=== PATIENT | male | born 1930 | race Caucasian/White ===

== ENCOUNTER 2016-06-28 17:36 | Inpatient (IN) | payer MEDICARE, BC, OTHER ==
[~2016-06-28] VITALS: Ht 170.2 cm; Wt 97.7 kg
[2016-06-28] MEDS ORDERED: NS 500 ML IV ONE (18:30)
[2016-06-28] MEDS ORDERED: ONDANSETRON 4MG/2ML VIAL (J2405) IV ONE (18:30)
[2016-06-28] MEDS ORDERED: DORZ2SOL5 OU (18:36)
[2016-06-28] MEDS ORDERED: LISI2.5T3 PO (18:36)
[2016-06-28] MEDS ORDERED: CICL0.7739 TOP (18:36)
[2016-06-28] MEDS ORDERED: PRAV20TA2 PO (18:36)
[2016-06-28] MEDS ORDERED: HYDR12.55 PO (18:36)
[2016-06-28] MEDS ORDERED: [UNRECOGNIZED DRUG - OTHER] (18:36)
[2016-06-28 18:46] LABS: BASO % 0.4 % (0.0-1.0); EOS # 0.1 K/mm3 (0.0-0.50); EOS % 0.8 % (0.0-3.0); LARGE UNSTAINED CELL # 0.1 K/mm3 (0.0-0.4); LARGE UNSTAINED CELL % 1.1 % (0.0-4.0); LYMPH # 1.1 K/mm3 (1.5-4.5); LYMPH % 12.4 % (24.0-44.0); MEAN CORPUSCULAR HEMOGLOBIN 30.8 pg (27.0-33.0); MEAN CORPUSCULAR HGB CONC 36.2 g/dl (32.0-36.5); MONO # 0.6 K/mm3 (0.0-0.8); MONO % 7.2 % (0.0-5.0); NEUTROPHILS # 6.6 K/mm3 (1.8-7.7); NEUTROPHILS % 78.1 % (36.0-66.0); PLATELET COUNT, AUTOMATED 174 k/mm3 (150-450); RED CELL DISTRIBUTION WIDTH 13.3 % (11.5-14.5); WHITE BLOOD COUNT 8.5 K/mm3 (4.0-10.0)
[2016-06-28 18:53] LABS: INR 0.96
[2016-06-28 19:12] LABS: BLOOD UREA NITROGEN 23 MG/DL (7-18); CARBON DIOXIDE LEVEL 27 MEQ/L (21-32); CHLORIDE LEVEL 99 MEQ/L (98-107); CREATININE FOR GFR 1.04 MG/DL (0.70-1.30); GLOMERULAR FILTRATION RATE > 60.0 (>35); GLUCOSE, FASTING 192 MG/DL (83-110); POTASSIUM SERUM 4.1 MEQ/L (3.5-5.1); SODIUM LEVEL 136 MEQ/L (136-145)
[2016-06-28 19:13] LABS: ALBUMIN 3.4 GM/DL (3.2-5.2); ALBUMIN/GLOBULIN RATIO 1.03 (1.00-1.93); ALKALINE PHOSPHATASE 178 U/L (45-117); ALT/SGPT 16 U/L (12-78); ANION GAP 10 MEQ/L (8-16); AST/SGOT 63 U/L (15-37); BILIRUBIN,DIRECT 0.3 MG/DL (0.0-0.2); BILIRUBIN,TOTAL 0.9 MG/DL (0.2-1.0); CALCIUM LEVEL 10.3 MG/DL (8.8-10.2); TOTAL PROTEIN 6.7 GM/DL (6.4-8.2)
[2016-06-28] MEDS ORDERED: ISOVUE-370 76% 100ML VIAL (Q9967) As Ordered ONE (19:19)
--- NOTE | 2016-06-28 20:20 | REPUSA ---
CT of the abdomen and pelvis with contrast Clinical statement: Pain. Small bowel obstruction. Technique: Multiple axial CT images were obtained from the base of the lungs through the floor of the pelvis utilizing 5 mm axial slices after administration of nonionic intravenous contrast. Coronal an d sagittal reconstructions were also obtained. No comparison is available. Findings: Chest: The visualized lung bases are clear. Abdomen: The liver, spleen, pancreas, kidneys, gallbladder, and adrenal glands are unremarkable. A 1 cm simple cyst is seen in the anterior inferior left kidney. A 1 cm simple cyst is seen in the left l obe of the liver. The aorta is within normal limits. There is no evidence of abdominal lymphadenopath y or ascites. Pelvis: There is a small midline anterior abdominal wall hernia. At this site, a single small bowel l oop is seen herniating, and is obstructed. The distal small bowel is relatively collapsed, with proxi mal small bowel air/fluid levels noted. Sigmoid diverticulosis is also noted. The urinary bladder is within normal limits. The other pelvic structures appear grossly intact. There is no evidence of pelv ic lymphadenopathy or ascites. Bones: There are no suspicious osseous abnormalities seen. There is mild levoscoliosis, with multilev el degenerative disc disease seen throughout the lumbar spine. Impression: 1. Moderate grade small bowel obstruction, caused by the midline anterior abdominal wall hernia. No s urrounding fluid or inflammation is identified. 2. Sigmoid diverticulosis without evidence of diverticulitis. 3. Simple cyst in the left lobe of the liver. Simple cyst in the left kidney. ER physician was notified of these findings at 8:15 PM on 06/28/2016.
[2016-06-28] MEDS ORDERED: ONDANSETRON 4MG/2ML VIAL (J2405) IV PRN (20:45)
[2016-06-28] MEDS ORDERED: ACETAMINOPHEN TAB 650MG DOSE (2X325MG) PO PRN (20:45)
[2016-06-28] MEDS ORDERED: MORPHINE 2 MG/ML 1ML SYRINGE IV PRN (20:45)
[2016-06-28] MEDS ORDERED: NORCO, ANEXSIA 5/325MG TABLET (HYDROcodone/ACETAMINOPHEN) PO PRN (20:45)
[2016-06-28] MEDS ORDERED: LISINOPRIL *2.5 MG* TAB PO ONE ×2 (21:00→22:30)
[2016-06-28] MEDS ORDERED: hydroCHLOROthiazide 12.5 MG CAPSULE PO ONE ×2 (21:00→22:30)
[2016-06-28] MEDS ORDERED: ASPI1CAP PO (21:10)
[2016-06-28] MEDS ORDERED: DULC5TAB PO (21:10)
[2016-06-28] MEDS ORDERED: BIMA01SOL OU (21:12)
[2016-06-28 22:30] VITALS: BP 140/81
[2016-06-28] MEDS: LR 1,000 ML IV SCH (23:02)
[2016-06-28 23:28] VITALS: BP 134/64
[2016-06-28] MEDS: SENOKOT S TAB PO SCH (23:29)
[2016-06-28] MEDS: COSOPT OCUMETER PLUS 10ML (DORZOLAMIDE/TIMOLOL) OU SCH (23:29)
[2016-06-28] MEDS: PRAVASTATIN 20 MG TAB PO SCH (23:29)
[2016-06-29] MEDS: LR 1,000 ML IV SCH ×2 (05:58→16:07)
[2016-06-29 06:00] VITALS: BP 166/69
[2016-06-29 06:56] LABS: ANION GAP 5 MEQ/L (8-16); BLOOD UREA NITROGEN 22 MG/DL (7-18); CALCIUM LEVEL 9.9 MG/DL (8.8-10.2); CARBON DIOXIDE LEVEL 33 MEQ/L (21-32); CHLORIDE LEVEL 101 MEQ/L (98-107); GLOMERULAR FILTRATION RATE > 60.0 (>35); GLUCOSE, FASTING 162 MG/DL (83-110); SODIUM LEVEL 139 MEQ/L (136-145)
[2016-06-29 07:11] LABS: BASO % 0.3 % (0.0-1.0); LARGE UNSTAINED CELL # 0.1 K/mm3 (0.0-0.4); LYMPH % 17.8 % (24.0-44.0); MEAN CORPUSCULAR HEMOGLOBIN 30.2 pg (27.0-33.0); MEAN CORPUSCULAR HGB CONC 35.1 g/dl (32.0-36.5); MEAN CORPUSCULAR VOLUME 86.1 fl (80.0-96.0); NEUTROPHILS % 68.4 % (36.0-66.0); PLATELET COUNT, AUTOMATED 135 k/mm3 (150-450); RED CELL DISTRIBUTION WIDTH 13.3 % (11.5-14.5); WHITE BLOOD COUNT 6.9 K/mm3 (4.0-10.0)
[2016-06-29 07:12] LABS: EOS % 0.7 % (0.0-3.0); LARGE UNSTAINED CELL % 1.6 % (0.0-4.0); LYMPH # 1.2 K/mm3 (1.5-4.5); MONO # 0.8 K/mm3 (0.0-0.8); MONO % 11.2 % (0.0-5.0); NEUTROPHILS # 4.6 K/mm3 (1.8-7.7)
[2016-06-29] MEDS: PANTOPRAZOLE 40MG INJ (PROTONIX) (C9113) IV SCH (10:18)
[2016-06-29] MEDS: COSOPT OCUMETER PLUS 10ML (DORZOLAMIDE/TIMOLOL) OU SCH ×2 (10:18→20:21)
[2016-06-29] MEDS: ENOXAPARIN 30 MG/0.3 ML SYR (J1650) SC SCH (10:18)
[2016-06-29] MEDS: NORCO, ANEXSIA 5/325MG TABLET (HYDROcodone/ACETAMINOPHEN) PO PRN (10:19)
[2016-06-29] MEDS: SENOKOT S TAB PO SCH ×2 (10:26→20:22)
--- NOTE | 2016-06-29 10:38 | REP ---
Clinical: Small bowel obstruction. Technique: Upright view of the abdomen with supine view of the abdomen and pelvis. Comparison: CT dated 06/28/2016. Findings: The bowel gas pattern is essentially nonspecific and the previously noted small bowel obstruction by CT is not identifiable by current examination. Skeletal structures demonstrate stable degenerative changes. Impression: No evidence for bowel obstruction based on current radiographs. Signed by Triston Delarosa MD 06/29/2016 10:29 A
[2016-06-29 14:00] VITALS: BP 146/70
[2016-06-29] MEDS: PRAVASTATIN 20 MG TAB PO SCH (20:21)
[2016-06-29 22:00] VITALS: BP 103/61
[2016-06-30] MEDS: LR 1,000 ML IV SCH (02:17)
[2016-06-30 06:00] VITALS: BP 112/59
[2016-06-30] MEDS: SENOKOT S TAB PO SCH (09:00)
[2016-06-30] MEDS: ENOXAPARIN 30 MG/0.3 ML SYR (J1650) SC SCH (11:55)
[2016-06-30] MEDS: COSOPT OCUMETER PLUS 10ML (DORZOLAMIDE/TIMOLOL) OU SCH (11:56)
[2016-06-30] MEDS: PANTOPRAZOLE 40MG INJ (PROTONIX) (C9113) IV SCH (11:56)
[2016-06-30] MEDS: NORCO, ANEXSIA 5/325MG TABLET (HYDROcodone/ACETAMINOPHEN) PO PRN (11:56)
== END 2016-06-30 15:05 | disposition home or self-care (01) | DRG 395 ==
LOC: M ED 18:56 → M ED INP 20:42 → M MS5PR 22:20
PROVIDERS: ADMIT Surgery; ATTEND Surgery
DX: K43.0 Incisional hernia with obstruction, without gangrene (principal); E66.9 Obesity, unspecified; Z68.33 Body mass index [BMI] 33.0-33.9, adult; Z86.010 Personal history of colon polyps; Z79.899 Other long term (current) drug therapy; Z90.49 Acquired absence of other specified parts of digestive tract

== ENCOUNTER 2016-08-03 02:09 | Inpatient (IN) | payer MEDICARE, BC, OTHER ==
[~2016-08-03] VITALS: Ht 170.2 cm; Wt 95.0 kg
[~2016-08-03 02:09] MED LIST: ASPI1CAP PO; BIMA01SOL OU; CICL0.7739 TOP; DORZ2SOL5 OU; DULC5TAB PO; HYDR12.55 PO; LISI2.5T3 PO; PRAV20TA2 PO; [UNRECOGNIZED DRUG - OTHER]
[2016-08-03] MEDS ORDERED: ONDANSETRON 4MG/2ML VIAL (J2405) IV ONE (03:15)
[2016-08-03] MEDS ORDERED: NS 500 ML IV ONE (03:15)
[2016-08-03] MEDS: MORPHINE 4 MG/ML 1ML SYRINGE IV PRN ×3 (03:31→04:06)
[2016-08-03 03:34] LABS: BASO % 0.5 % (0.0-1.0); EOS # 0.1 K/mm3 (0.0-0.50); EOS % 1.1 % (0.0-3.0); LARGE UNSTAINED CELL # 0.1 K/mm3 (0.0-0.4); LARGE UNSTAINED CELL % 2.1 % (0.0-4.0); LYMPH # 1.2 K/mm3 (1.5-4.5); LYMPH % 19.6 % (24.0-44.0); MEAN CORPUSCULAR HEMOGLOBIN 29.9 pg (27.0-33.0); MEAN CORPUSCULAR HGB CONC 34.4 g/dl (32.0-36.5); MEAN CORPUSCULAR VOLUME 86.9 fl (80.0-96.0); MONO # 0.5 K/mm3 (0.0-0.8); NEUTROPHILS % 68.7 % (36.0-66.0); PLATELET COUNT, AUTOMATED 133 k/mm3 (150-450); WHITE BLOOD COUNT 5.9 K/mm3 (4.0-10.0)
[2016-08-03 03:38] LABS: INR 0.98
[2016-08-03 04:01] LABS: ALBUMIN 3.1 GM/DL (3.2-5.2); ALBUMIN/GLOBULIN RATIO 0.82 (1.00-1.93); ALKALINE PHOSPHATASE 613 U/L (45-117); ALT/SGPT 21 U/L (12-78); ANION GAP 12 MEQ/L (8-16); AST/SGOT 167 U/L (15-37); BILIRUBIN,DIRECT 0.2 MG/DL (0.0-0.2); BILIRUBIN,TOTAL 0.9 MG/DL (0.2-1.0); BLOOD UREA NITROGEN 31 MG/DL (7-18); CALCIUM LEVEL 9.4 MG/DL (8.8-10.2); CARBON DIOXIDE LEVEL 24 MEQ/L (21-32); CHLORIDE LEVEL 101 MEQ/L (98-107); CREATININE FOR GFR 0.95 MG/DL (0.70-1.30); GLOMERULAR FILTRATION RATE > 60.0 (>35); GLUCOSE, FASTING 188 MG/DL (83-110); POTASSIUM SERUM 3.5 MEQ/L (3.5-5.1); SODIUM LEVEL 137 MEQ/L (136-145); TOTAL PROTEIN 6.9 GM/DL (6.4-8.2)
[2016-08-03] MEDS ORDERED: ISOVUE-370 76% 100ML VIAL (Q9967) As Ordered ONE (04:28)
--- NOTE | 2016-08-03 05:10 | REPUSA ---
CLINICAL HISTORY: Abdominal pain. TECHNIQUE: Multiple axial, sagittal and coronal CT images were obtained through the abdomen and pelvi s after administration of oral and intravenous contrast material. Images were obtained before and aft er IV contrast administration. COMMENTS: Comparison is made to the prior exam on 06/28/2016. Surgical changes from prior partial colectomy. 1.5 cm well-defined hypodense hepatic lesion suggestive of a cyst. The liver is of decreased attenuation without mass or defect. There is no intra or extrahepatic bilia ry ductal dilatation. The spleen is normal. The gallbladder is within normal limits. The pancreas is of normal contour and attenuation characteristics. There is no evidence of adrenal mass. Mild left renal atrophy. Both kidneys demonstrate prompt and equal nephrograms. The kidneys are normal in size, shape and conf iguration. There is no evidence of renal or ureteral mass. No renal or ureteral calculi are identifie d. There is no hydroureter or hydronephrosis. No evidence for appendicitis. No evidence for small or large bowel obstruction. There is no evidence of abdominal ascites or lymphadenopathy. There is no evidence of intrinsic or extrinsic bladder mass. There is no pelvic ascites or lymphadeno francesca. Images of the lung bases show no evidence of pleural or parenchymal mass. There are no pleural effusi ons. The bony structures are free of lytic or blastic lesions. Multilevel degenerative changes are seen in volving the thoracolumbar spine. Scattered calcifications are seen involving the aorta and major bran ches compatible with atherosclerosis. Bilateral fat containing inguinal hernias without incarceration. Surgical changes of anterior abdominal wall. IMPRESSION: Changes from prior partial colectomy. No bowel obstruction. Unchanged anterior abdominal wall hernia containing nonincarcerated bowel. Thank you for your kind referral of this patient.
[2016-08-03] MEDS: NS 1,000 ML IV SCH ×3 (06:46→20:26)
[2016-08-03] MEDS ORDERED: NS 1,000 ML IV SCH (08:43)
[2016-08-03] MEDS ORDERED: BISACODYL 5 MG TAB PO PRN (08:45)
[2016-08-03] MEDS ORDERED: ACETAMINOPHEN TAB 650MG DOSE (2X325MG) PO PRN (08:45)
[2016-08-03] MEDS: MORPHINE 2 MG/ML 1ML SYRINGE IV PRN ×4 (09:28→20:27)
[2016-08-03 09:29] LABS: ERYTHROCYTE SEDIMENTATION RATE 67 mm/hr (0-30)
[2016-08-03 09:30] LABS: MAGNESIUM LEVEL 1.6 MG/DL (1.8-2.4); PERCENT SATURATION 25.8 % (19.7-37.4); TOTAL IRON BINDING CAPACITY 279 UG/DL (250-450)
[2016-08-03 10:25] VITALS: BP 134/66
[2016-08-03] MEDS: LISINOPRIL *2.5 MG* TAB PO SCH (10:44)
[2016-08-03] MEDS: ENOXAPARIN 40 MG/0.4 ML SYRINGE (J1650) SC SCH (10:44)
[2016-08-03] MEDS: hydroCHLOROthiazide 12.5 MG CAPSULE PO SCH (10:44)
[2016-08-03] MEDS: DIPYRIDAMOLE/ASA (AGGRENOX) 200MG/25MG CAPCR PO SCH ×2 (12:13→20:26)
[2016-08-03] MEDS: COSOPT OCUMETER PLUS 10ML (DORZOLAMIDE/TIMOLOL) OU SCH ×2 (12:16→20:26)
--- NOTE | 2016-08-03 13:56 | ECGEPIP ---
Stationary ECG Study 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
--- NOTE | 2016-08-03 14:50 | HPE ---
DATE OF ADMISSION: 08/03/2016 CHIEF COMPLAINT: Sore muscles and fatigue. HOSPITAL COURSE: For about the past month patient has been complaining of muscle aches, general weakness, decreased interest in eating, and admits to decreased oral intake. He had recent problems with mechanical bowel obstruction and was found to have small hernias and is scheduled for hernia repair in the future. At this point the gastrointestinal (GI) symptoms have resolved, and he is awaiting preoperative evaluation with his doctor to set up surgery to correct the inguinal hernias. Apparently they are entrapping mental fat but not bowel loops this time, according to CT done in the emergency room (ER). Patient was taking a variety of medications, including pravastatin 20 mg daily. He affirms that the dosage of the pravastatin has not recently changed, and he has been on this agent since October 2013 PAST MEDICAL HISTORY: Positive for: 1. Hypertensive heart disease without heart failure. 2. Does have a history of diabetes mellitus but does not appear to be taking any medications to treat the diabetes. 3. History of stroke, which left him with no residual that he can define. He does seem mildly dysarthric today, but this may be a residual effect of narcotic pain medicine given in the emergency department (ED) REVIEW OF SYSTEMS: Denies recent changes and neurologic function. Muscle pains as noted. Has not noticed any change in urinary color. Denies recent injuries. No cough, chest pain, fevers, or chills. No rashes other than chronic intertriginous rash, treated with ciclopirox with good effects according to the patient. No difficulty with urination. No burning or stinging. No flank pain. At this time no nausea, abdominal distension, or crampy abdominal pain. No significant joint redness, swelling, and again no recent injury. 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 Oxygen will be titrated to maintain saturations. He is alert, pleasant, cooperative. Smiles readily. Acknowledges examiner. He is accompanied by daughters in the room with him at this time. He moves all extremities well. He is not distractible and is able to focus. HEENT: Shows no evidence of trauma. Full extraocular movements. Oropharynx unremarkable with normal midline palate elevation. Normal tongue movement to demonstrated. He has no carotid bruits. There is no palpable thyroid enlargement. No tracheal shift. No adenopathy detected. LUNGS: Clear to auscultation with no wheezing, rales, or rhonchi. Equal expansion. HEART: Regular rhythm. No murmur identified. No shift of point of maximal impulse (PMI) and no gallop rhythm heard. ABDOMEN: Soft. No guarding. No mass or tenderness. There is no rebound tenderness. EXTREMITIES: Mildly achy throughout. No hot, red, swollen joints. No petechial rashes. No splinter hemorrhages. NEUROLOGIC: Mildly dysarthric but moves all extremities equally and well with normal reflex demonstrated CT of his abdomen does show bilateral fat-containing inguinal hernias without incarceration. EKG is pending. LABORATORY: Includes normal sodium 137, potassium at 3.5, CO2 of 24, anion gap 12, BUN is slightly elevated 31, creatinine 0.95, suggesting volume contraction, glucose 188. AST 167, alkaline phosphatase 613, and albumin slightly low at 3.1. Lipase 78. He is anemic with hemoglobin of 10.8, showing the normochromic and normocytic cells. Platelet count is slightly low at 133,000. He does not have prominent eosinophilia. PT is normal at 13.1, and his INR is 0.98. ASSESSMENT: An 85-year-old stroke survivor presents with myalgia, on statins now for not quite 3 years. No recent change in medications that should provoke metabolic disturbance with the statin. No recent infectious illness. No current infectious illness. No evidence of an inflammatory state with respective to fevers, chills, rashes, or hot joints. No recent illicit drug use identified. Suspect statin-induced rhabdomyolysis. At this point kidney function is well preserved, and the extent of the rhabdomyolysis is mild considering a total CPK of 1799 and alkaline phosphatase of 613. PLAN: Continue adequate hydration to ensure adequate renal function. He is mildly dehydrated now, which will compound risk with respect to developing renal dysfunction. Will continue with 150 per hour hydration at this time of normal saline. He has received a 500 mL bolus and will continue 150 mL per hour ongoing, which should be adequate. We will continue for now his diuretic and lisinopril. We will provide morphine 2 mg as needed for muscle pain and Lovenox 40 mg subcutaneous for deep vein thrombosis (DVT) prophylaxis. PT will be requested, and his pravastatin will be stopped for now. Will continue his dipyridamole/aspirin combination for stroke prophylaxis. Laboratory studies for connective tissue disorders will be done. EKG is ordered. Activity will be as tolerated, and again request PT consult. Anticipate at least 2-midnight stay before patient's pain and syndrome is sufficiently resolved and rhabdomyolysis sufficiently resolved to confidently discharge without concern for rebound. The patient based on his home request and documented previous statements, request DO NOT RESUSCITATE order, which will be honored. He will be admitted to regular medical bed.
[2016-08-03] MEDS: LATANOPROST 0.005% OPHTH SOLN 2.5 ML OU SCH (20:26)
[2016-08-03 22:00] VITALS: BP 138/83
[2016-08-04] MEDS: NS 1,000 ML IV SCH ×3 (03:09→17:28)
[2016-08-04] MEDS: MORPHINE 2 MG/ML 1ML SYRINGE IV PRN ×2 (03:10→20:39)
[2016-08-04 05:48] LABS: BASO % 0.5 % (0.0-1.0); EOS # 0.1 K/mm3 (0.0-0.50); EOS % 1.5 % (0.0-3.0); LARGE UNSTAINED CELL # 0.1 K/mm3 (0.0-0.4); LARGE UNSTAINED CELL % 2.5 % (0.0-4.0); LYMPH # 0.8 K/mm3 (1.5-4.5); MEAN CORPUSCULAR HEMOGLOBIN 30.3 pg (27.0-33.0); MEAN CORPUSCULAR HGB CONC 34.6 g/dl (32.0-36.5); MEAN CORPUSCULAR VOLUME 87.7 fl (80.0-96.0); MONO # 0.4 K/mm3 (0.0-0.8); MONO % 8.7 % (0.0-5.0); NEUTROPHILS % 67.7 % (36.0-66.0); RED CELL DISTRIBUTION WIDTH 15.1 % (11.5-14.5); WHITE BLOOD COUNT 4.4 K/mm3 (4.0-10.0)
[2016-08-04 06:00] VITALS: BP 130/69
[2016-08-04 06:14] LABS: ALBUMIN 2.5 GM/DL (3.2-5.2); ALBUMIN/GLOBULIN RATIO 0.74 (1.00-1.93); ALKALINE PHOSPHATASE 768 U/L (45-117); ALT/SGPT 42 U/L (12-78); ANION GAP 9 MEQ/L (8-16); AST/SGOT 585 U/L (15-37); BILIRUBIN,TOTAL 0.6 MG/DL (0.2-1.0); BLOOD UREA NITROGEN 17 MG/DL (7-18); CALCIUM LEVEL 8.5 MG/DL (8.8-10.2); CARBON DIOXIDE LEVEL 25 MEQ/L (21-32); CHLORIDE LEVEL 105 MEQ/L (98-107); CREATININE FOR GFR 0.85 MG/DL (0.70-1.30); GLOMERULAR FILTRATION RATE > 60.0 (>35); GLUCOSE, FASTING 149 MG/DL (83-110); POTASSIUM SERUM 3.8 MEQ/L (3.5-5.1); SODIUM LEVEL 139 MEQ/L (136-145); TOTAL PROTEIN 5.9 GM/DL (6.4-8.2)
[2016-08-04 06:26] LABS: PLATELET COUNT, AUTOMATED 99 k/mm3 (150-450)
[2016-08-04] MEDS ORDERED: MAG SULF 1GM/100ML (MAG RUN) 1 GM in APPROPRIATE DILUENT 1 EA IV ONE (09:00)
[2016-08-04] MEDS: ENOXAPARIN 40 MG/0.4 ML SYRINGE (J1650) SC SCH (09:00)
[2016-08-04] MEDS: hydroCHLOROthiazide 12.5 MG CAPSULE PO SCH (10:42)
[2016-08-04] MEDS: COSOPT OCUMETER PLUS 10ML (DORZOLAMIDE/TIMOLOL) OU SCH ×2 (10:42→20:19)
[2016-08-04] MEDS: ENOXAPARIN 30 MG/0.3 ML SYR (J1650) SC SCH (10:42)
[2016-08-04] MEDS: DIPYRIDAMOLE/ASA (AGGRENOX) 200MG/25MG CAPCR PO SCH ×2 (10:42→20:19)
[2016-08-04] MEDS: LISINOPRIL *2.5 MG* TAB PO SCH (10:44)
--- NOTE | 2016-08-04 11:19 | IPNPDOC ---
Subjective Date Seen The patient was seen on 08/04/16. Subjective Chief Complaint/HPI The patient is a 85-year-old male admitted with a reason for visit of Rhabdomyolysis Due To Statin Therapy. General: Reports: Fatigue, Denies: Chills, Malaise ENT: Denies: Head Aches, Dysphagia Pulmonary: Denies: Dyspnea, Cough Cardiovascular: Denies: Chest Pain, Palpitations, Orthopnea Gastrointestinal: Denies: Vomiting, Abdominal Pain Genitourinary: Denies: Dysuria, Frequency Neurological: Denies: Numbness, Change in speech, Confusion Objective Physical Examination General Exam: Positive: Alert, Cooperative, No Acute Distress Eye Exam: Positive: PERRLA ENT Exam: Positive: Atraumatic Neck Exam: Positive: Supple, Negative: thyromegaly Chest Exam: Positive: Clear to auscultation, Normal air movement, Negative: Rales, Rhonchi Heart Exam: Positive: Rate Normal, Regular Rhythm, Negative: Tachycardic Abdomen Exam: Positive: Normal bowel sounds, Soft, Negative: Tenderness Skin Exam: Positive: Nl turgor and temperature, Negative: Rash Neuro Exam: Positive: Normal Tone Psych Exam: Positive: Mental status NL Assessment /Plan Problems (1) Rhabdomyolysis due to statin therapy Status: Acute Response to Treatment: Improving (Muscle pain symptoms have improved although his CK is higher today. Bun improved and Creatinine remains normal. Will reduce IV fluid rate today.) Problem Text: CK elevated but feeling better. Consider steroids if continuing to rise. Expect if due to statin that we will see improvement in CK tomorrow. (2) Inguinal hernia bilateral, non-recurrent Status: Chronic Response to Treatment: Stable Problem Specific Plan: Monitor Clinically (3) Thrombocytopenia Status: Acute Response to Treatment: Worse Problem Text: Unknown cause. also anemia is new. possibly related to rhabdo but still believe statin is culprit. will reduce lovenox dose, monitor. consider heme consult Plan/VTE VTE Prophylaxis Ordered?: Yes (reduced Lovenox dose due to low platelets) Plan IVF: Decrease Activity: Continue Current Therapy: PT Anticipated Discharge: Home VS, I&O, 24H, Fishbone Vital Signs/I&O Vital Signs Date Time Temp Pulse Resp B/P (MAP) Pulse Ox O2 Delivery O2 Flow Rate FiO2 08/04/16 10:44 122/68 08/04/16 06:00 98.9 83 19 93 Room Air I&O- Last 24 Hours up to 6 AM 08/04/16 06:00 Intake Total 3375 ml Output Total 1025 ml Balance 2350 ml Laboratory Data 24H LABS Laboratory Tests 2 08/03/16 16:21: Bedside Glucose (Misc Panel) 190H 08/04/16 05:30: White Blood Count 4.4, Red Blood Count 3.16L, Hemoglobin 9.6L, Hematocrit 27.7L , Mean Corpuscular Volume 87.7, Mean Corpuscular Hemoglobin 30.3, Mean Corpuscular Hemoglobin Concent 34.6, Red Cell Distribution Width 15.1H, Platelet Count 99L, Neutrophils (%) (Auto) 67.7H, Lymphocytes (%) (Auto) 19.0L, Monocytes (%) (Auto) 8.7H, Eosinophils (%) (Auto) 1.5, Basophils (%) (Auto) 0.5 , Neutrophils # (Auto) 3.0, Lymphocytes # (Auto) 0.8L, Monocytes # (Auto) 0.4, Eosinophils # (Auto) 0.1, Basophils # (Auto) 0.0, Large Unclassified Cells % 2.5 , Large Unclassified Cells # 0.1, Anion Gap 9, Glomerular Filtration Rate > 60.0 , Estimated Mean Plasma Glucose 203H, Hemoglobin A1c 8.7H, Blood Urea Nitrogen 17, Creatinine 0.85, Sodium Level 139, Potassium Level 3.8, Chloride Level 105, Carbon Dioxide Level 25, Calcium Level 8.5L, Aspartate Amino Transf (AST/SGOT) 585H, Alanine Aminotransferase (ALT/SGPT) 42, Total Creatine Kinase 3249#H, Alkaline Phosphatase 768H, Total Bilirubin 0.6, Total Protein 5.9L, Albumin 2.5L , Albumin/Globulin Ratio 0.74L CBC/BMP Laboratory Tests 08/04/16 05:30 Red Blood Count 3.16 L, Mean Corpuscular Volume 87.7, Mean Corpuscular Hemoglobin 30.3, Mean Corpuscular Hemoglobin Concent 34.6, Red Cell Distribution Width 15.1 H, Neutrophils (%) (Auto) 67.7 H, Lymphocytes (%) (Auto ) 19.0 L, Monocytes (%) (Auto) 8.7 H, Eosinophils (%) (Auto) 1.5, Basophils (%) (Auto) 0.5, Neutrophils # (Auto) 3.0, Lymphocytes # (Auto) 0.8 L, Monocytes # ( Auto) 0.4, Eosinophils # (Auto) 0.1, Basophils # (Auto) 0.0, Calcium Level 8.5 L , Aspartate Amino Transf (AST/SGOT) 585 H, Alanine Aminotransferase (ALT/SGPT) 42, Total Creatine Kinase 3249 #H, Alkaline Phosphatase 768 H, Total Bilirubin 0.6, Total Protein 5.9 L, Albumin 2.5 L Manish Funes MD August 04, 2016 11:19
[2016-08-04 14:00] VITALS: BP 144/70
[2016-08-04] MEDS: LATANOPROST 0.005% OPHTH SOLN 2.5 ML OU SCH (20:19)
[2016-08-04 22:00] VITALS: BP 154/76
[2016-08-05] MEDS: MORPHINE 2 MG/ML 1ML SYRINGE IV PRN ×3 (00:25→18:12)
[2016-08-05] MEDS: NS 1,000 ML IV SCH ×2 (03:15→15:00)
[2016-08-05 05:34] VITALS: BP 151/70
[2016-08-05 05:54] LABS: BASO % 0.2 % (0.0-1.0); EOS # 0.1 K/mm3 (0.0-0.50); LARGE UNSTAINED CELL # 0.1 K/mm3 (0.0-0.4); LYMPH # 0.9 K/mm3 (1.5-4.5); LYMPH % 18.7 % (24.0-44.0); MEAN CORPUSCULAR HEMOGLOBIN 29.9 pg (27.0-33.0); MEAN CORPUSCULAR HGB CONC 35.2 g/dl (32.0-36.5); MEAN CORPUSCULAR VOLUME 84.8 fl (80.0-96.0); MONO # 0.3 K/mm3 (0.0-0.8); MONO % 7.3 % (0.0-5.0); NEUTROPHILS # 3.2 K/mm3 (1.8-7.7); NEUTROPHILS % 69.7 % (36.0-66.0); PLATELET COUNT, AUTOMATED 102 k/mm3 (150-450); RED CELL DISTRIBUTION WIDTH 15.2 % (11.5-14.5); WHITE BLOOD COUNT 4.5 K/mm3 (4.0-10.0)
[2016-08-05 06:25] LABS: ALBUMIN 2.4 GM/DL (3.2-5.2); ALBUMIN/GLOBULIN RATIO 0.71 (1.00-1.93); ALKALINE PHOSPHATASE 661 U/L (45-117); ALT/SGPT 19 U/L (12-78); ANION GAP 8 MEQ/L (8-16); AST/SGOT 135 U/L (15-37); BILIRUBIN,TOTAL 0.7 MG/DL (0.2-1.0); BLOOD UREA NITROGEN 12 MG/DL (7-18); CARBON DIOXIDE LEVEL 26 MEQ/L (21-32); CHLORIDE LEVEL 104 MEQ/L (98-107); CREATININE FOR GFR 0.71 MG/DL (0.70-1.30); GLOMERULAR FILTRATION RATE > 60.0 (>35); GLUCOSE, FASTING 154 MG/DL (83-110); MAGNESIUM LEVEL 1.6 MG/DL (1.8-2.4); POTASSIUM SERUM 3.8 MEQ/L (3.5-5.1); SODIUM LEVEL 138 MEQ/L (136-145); TOTAL PROTEIN 5.8 GM/DL (6.4-8.2)
[2016-08-05 07:57] VITALS: BP 140/77
[2016-08-05] MEDS: ENOXAPARIN 30 MG/0.3 ML SYR (J1650) SC SCH (08:01)
[2016-08-05] MEDS: hydroCHLOROthiazide 12.5 MG CAPSULE PO SCH (08:01)
[2016-08-05] MEDS: DIPYRIDAMOLE/ASA (AGGRENOX) 200MG/25MG CAPCR PO SCH ×2 (08:01→20:39)
[2016-08-05] MEDS: COSOPT OCUMETER PLUS 10ML (DORZOLAMIDE/TIMOLOL) OU SCH ×2 (08:02→20:40)
[2016-08-05] MEDS: LISINOPRIL *2.5 MG* TAB PO SCH (08:02)
[2016-08-05] MEDS ORDERED: ENOXAPARIN 30 MG/0.3 ML SYR (J1650) SC SCH (09:00)
[2016-08-05 09:16] LABS: GAMMA GLUTAMYLTRANSPEPTIDASE 19 U/L (15-85)
[2016-08-05 10:46] LABS: FOLATE 3.9 NG/ML (>5.4); VITAMIN B12 LEVEL 1037 PG/ML (247-911)
[2016-08-05] MEDS ORDERED: MAG SULF 1GM/100ML (MAG RUN) 1 GM in APPROPRIATE DILUENT 1 EA IV ONE (11:00)
--- NOTE | 2016-08-05 11:06 | IPNPDOC ---
Subjective Date Seen The patient was seen on 08/05/16. Subjective Chief Complaint/HPI The patient is a 85-year-old male admitted with a reason for visit of Rhabdomyolysis Due To Statin Therapy. Events since last encounter Pt notes still with some myalgias but overall a little improved. Denies CP, SOB , Abd pain. Constitutional: Denies: Chills, Fever Pulmonary: Denies: Dyspnea Cardiovascular: Denies: Chest Pain Gastrointestinal: Denies: Nausea, Vomiting, Abdominal Pain Objective Physical Examination General Exam: Positive: Alert, Cooperative, No Acute Distress Eye Exam: Positive: PERRLA ENT Exam: Positive: Atraumatic Neck Exam: Positive: Supple, Negative: thyromegaly Chest Exam: Positive: Clear to auscultation, Normal air movement, Negative: Rales, Rhonchi Heart Exam: Positive: Rate Normal, Regular Rhythm, Negative: Tachycardic Abdomen Exam: Positive: Normal bowel sounds, Soft, Negative: Tenderness Skin Exam: Positive: Nl turgor and temperature, Negative: Rash Neuro Exam: Positive: Normal Tone Psych Exam: Positive: Mental status NL Assessment /Plan Problems (1) Pain from bone metastases Status: Acute Response to Treatment: Uncontrolled Problem Text: 08/05 + dexa 2 BID (defer NSAID given HTN, Aggrenox use), continue MSIR prn, + Senokot-S given recent SBO, t/c palliative XRT P MRI (2) Elevated CPK Status: Acute Response to Treatment: Stable Problem Text: 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 (last in [place] 11/2007 1.0) 08/05/16 ALP 661 (01/2016 58)-favor 2 bone mets elva given AST elevation also(GGTP and liver US P) 08/05/16 WBBS P 08/03/16 CT AP s/c NAD s/p TURP [address] Esposito-op note and pathology not in [place] (4) Normocytic anemia Status: Acute Response to Treatment: Worse Problem Text: favor 2 BM involvement of prostate cancer/ACD 08/05/16 9.4, MCV 85 05/2016 hgb 14.7 07/2016 B12 1037 07/2016 folate 3.9- + FA 1 mg QD 07/2016 % sat 26 (5) Hypomagnesemia Status: Acute Problem Specific Plan: Repeat Labs Problem Text: Give mag run. (6) Inguinal hernia bilateral, non-recurrent Status: Chronic Response to Treatment: Stable Problem Specific Plan: Monitor Clinically Problem Text: favor to postpone given asx and more pressing issues-obviously + bowel regimen to reduce recurrent SBO risk (7) Thrombocytopenia Status: Acute Response to Treatment: Worse Problem Text: Unknown cause. also anemia is new. possibly related to rhabdo but still believe statin is culprit. will reduce lovenox dose, monitor. consider heme consult (8) T2DM (type 2 diabetes mellitus) Status: Chronic Response to Treatment: Uncontrolled Problem Text: 08/05 probably + basal insulin pending BS on dexa 08/04 A1C 8.7-c FBSs mid [id number] until now Plan/VTE VTE Prophylaxis Ordered?: Yes (reduced Lovenox dose due to low platelets) Plan IVF: Decrease Activity: Continue Current Therapy: PT Anticipated Discharge: Home VS, I&O, 24H, [facility] Vital Signs/I&O Vital Signs Date Time Temp Pulse Resp B/P (MAP) Pulse Ox O2 Delivery O2 Flow Rate FiO2 08/05/16 09:15 Room Air 08/05/16 08:02 140/77 08/05/16 07:57 98.2 77 17 96 I&O- Last 24 Hours up to 6 AM 08/05/16 06:00 Intake Total 3992 ml Output Total 2800 ml Balance 1192 ml Laboratory Data 24H LABS Laboratory Tests 2 08/04/16 16:56: Bedside Glucose (Misc Panel) 164H 08/05/16 05:35: 08/05/16 05:37: White Blood Count 4.5, Red Blood Count 3.14L, Hemoglobin 9.4L, Hematocrit 26.6L , Mean Corpuscular Volume 84.8, Mean Corpuscular Hemoglobin 29.9, Mean Corpuscular Hemoglobin Concent 35.2, Red Cell Distribution Width 15.2H, Platelet Count 102L, Neutrophils (%) (Auto) 69.7H, Lymphocytes (%) (Auto) 18.7L , Monocytes (%) (Auto) 7.3H, Eosinophils (%) (Auto) 2.0, Basophils (%) (Auto) 0.2, Neutrophils # (Auto) 3.2, Lymphocytes # (Auto) 0.9L, Monocytes # (Auto) 0.3 , Eosinophils # (Auto) 0.1, Basophils # (Auto) 0.0, Large Unclassified Cells % 2.0, Large Unclassified Cells # 0.1, Anion Gap 8, Glomerular Filtration Rate > 60.0, Blood Urea Nitrogen 12, Creatinine 0.71, Sodium Level 138, Potassium Level 3.8, Chloride Level 104, Carbon Dioxide Level 26, Calcium Level 9.0, Aspartate Amino Transf (AST/SGOT) 135H, Alanine Aminotransferase (ALT/SGPT) 19, Gamma Glutamyl Transpeptidase 19, Total Creatine Kinase 2483H, Alkaline Phosphatase 661H, Total Bilirubin 0.7, Total Protein 5.8L, Albumin 2.4L, Magnesium Level 1.6L, C-Reactive Protein, Quantitative 16.40H, Albumin/Globulin Ratio 0.71L, Prostate Specific Antigen 48.10H, Vitamin B12 Level 1037H, Folate 3.9L CBC/BMP Laboratory Tests 08/05/16 05:37 Red Blood Count 3.14 L, Mean Corpuscular Volume 84.8, Mean Corpuscular Hemoglobin 29.9, Mean Corpuscular Hemoglobin Concent 35.2, Red Cell Distribution Width 15.2 H, Neutrophils (%) (Auto) 69.7 H, Lymphocytes (%) (Auto ) 18.7 L, Monocytes (%) (Auto) 7.3 H, Eosinophils (%) (Auto) 2.0, Basophils (%) (Auto) 0.2, Neutrophils # (Auto) 3.2, Lymphocytes # (Auto) 0.9 L, Monocytes # ( Auto) 0.3, Eosinophils # (Auto) 0.1, Basophils # (Auto) 0.0, Calcium Level 9.0, Aspartate Amino Transf (AST/SGOT) 135 H, Alanine Aminotransferase (ALT/SGPT) 19 , Gamma Glutamyl Transpeptidase 19, Total Creatine Kinase 2483 H, Alkaline Phosphatase 661 H, Total Bilirubin 0.7, Total Protein 5.8 L, Albumin 2.4 L Microbiology Microbiology 08/05/16 Stool Occult Blood ([facility]OJANA) - Final, Complete Adiel Ralph August 05, 2016 11:06 Js Glez M.D. August 05, 2016 15:00
[2016-08-05 14:55] VITALS: BP 163/78
[2016-08-05] MEDS ORDERED: DEXTROSE 50% 50 ML SYRINGE IV PRN (15:45)
[2016-08-05] MEDS ORDERED: GLUCOSE 4 GM CHEW TABLET PO PRN (15:45)
[2016-08-05] MEDS ORDERED: GLUCAGON FOR INJ 1 MG VIAL (J1610) SC PRN (15:45)
--- NOTE | 2016-08-05 17:22 | REP ---
Whole body radionuclide bone scan: History: Elevated alkaline phosphatase. The patient reports whole body achiness. Comparison CT images are from abdomen pelvis CT 08/03/2016. Technique: 22.0 mCi technetium 99m MDP is injected and standard whole body bone scan imaging are acquired. Scintigraphic findings: There is widespread nearly diffuse pattern of heterogeneous increased skeletal uptake in the axial skeleton consistent with widespread metastatic disease. There is extensive involvement of the rib cage bilaterally, pelvis, both scapulae and both clavicles, the sternum, both proximal femurs, and the cervical and thoracic spine. Distal femur and right proximal tibia and left proximal fibular lesions are also seen. There is faint uptake in bilateral kidneys. Impression: Findings compatible with widespread skeletal metastatic disease. Question prostate malignancy. Signed by Michael Santos MD 08/05/2016 06:21 P
[2016-08-05] MEDS: HumaLOG INSULIN (NovoLOG) PER UNIT SC SCH ×2 (17:30→20:44)
[2016-08-05] MEDS: FOLIC ACID 1 MG TAB PO SCH (17:55)
--- NOTE | 2016-08-05 19:35 | REP ---
LIVER ULTRASOUND: REASON: Elevated alkaline phosphatase. COMPARISON: None. Multiple sonographic images of the liver show a cystic mass in the junction between the medial and lateral segments of the left lobe with an overall measurement of 1.6 x 1.8 x 2.0 cm but exhibiting some increase through transmission. This is not a simple cyst. There are no other hepatic abnormalities. There is no intrahepatic or extrahepatic ductal dilatation. The common bile duct measures between 4-5 mm. Within the gallbladder this is echogenic material near the gallbladder neck region. Consistent with sludge formation. There is mild diffuse gallbladder wall thickening. Imaged portion of the pancreas and right kidney are unremarkable. IMPRESSION: 1. Nonsimple cystic mass in the liver for which pre and post gadolinium enhanced hepatic MRI is recommended. If the patient can not tolerate MRI then pre and post contrast enhanced dynamic hepatic CT is recommended. Review of the prior CT obtained 2 days ago is a contrast enhanced exam only and there are no dynamic phase images to review. The examination was obtained using 1 phase only after contrast administration which is inadequate in fully evaluating this lesion. 2. Other findings as described above. Signed by Darrel Elder DO 08/06/2016 01:58 P
[2016-08-05] MEDS: SENOKOT S TAB PO SCH (20:39)
[2016-08-05] MEDS: LATANOPROST 0.005% OPHTH SOLN 2.5 ML OU SCH (20:40)
[2016-08-05 22:00] VITALS: BP 146/76
[2016-08-06] MEDS: NS 1,000 ML IV SCH ×3 (01:13→14:45)
[2016-08-06 06:00] VITALS: BP 138/81
[2016-08-06 07:14] LABS: MEAN CORPUSCULAR HEMOGLOBIN 29.9 pg (27.0-33.0); MEAN CORPUSCULAR HGB CONC 33.7 g/dl (32.0-36.5); MEAN CORPUSCULAR VOLUME 88.6 fl (80.0-96.0); RED CELL DISTRIBUTION WIDTH 15.2 % (11.5-14.5); WHITE BLOOD COUNT 8.3 K/mm3 (4.0-10.0)
[2016-08-06] MEDS: HumaLOG INSULIN (NovoLOG) PER UNIT SC SCH ×4 (07:30→20:28)
[2016-08-06 07:37] LABS: MAGNESIUM LEVEL 1.8 MG/DL (1.8-2.4)
[2016-08-06 10:38] LABS: ALBUMIN/GLOBULIN RATIO 0.79 (1.00-1.93); ALKALINE PHOSPHATASE 756 U/L (45-117); ALT/SGPT 16 U/L (12-78); ANION GAP 16 MEQ/L (8-16); AST/SGOT 113 U/L (15-37); BLOOD UREA NITROGEN 14 MG/DL (7-18); CALCIUM LEVEL 9.7 MG/DL (8.8-10.2); CARBON DIOXIDE LEVEL 21 MEQ/L (21-32); CHLORIDE LEVEL 102 MEQ/L (98-107); CREATININE FOR GFR 1.18 MG/DL (0.70-1.30); GLUCOSE, FASTING 193 MG/DL (83-110); POTASSIUM SERUM 3.9 MEQ/L (3.5-5.1); SODIUM LEVEL 139 MEQ/L (136-145); TOTAL PROTEIN 6.8 GM/DL (6.4-8.2)
[2016-08-06 10:40] LABS: ALBUMIN 3.62 GM/DL (3.29-5.55); ALBUMIN % 52.5 % (55.8-66.1); GAMMA GLOBULIN % 11.8 % (11.1-18.8)
[2016-08-06 10:41] LABS: TOTAL PROTEIN 6.9 GM/DL (6.4-8.2)
[2016-08-06 10:44] LABS: GLOMERULAR FILTRATION RATE > 60.0 (>35)
--- NOTE | 2016-08-06 11:06 | REP ---
MRI STUDY OF THE BRAIN WITHOUT AND WITH IV GADOLINIUM: HISTORY: Metastatic prostate cancer, cervical spine mets, question cord compression. Comparison radionuclide bone scan is from August 05, 2016. Comparison study June 16, 2013. TECHNIQUE: Axial, sagittal and coronal imaging planes are utilized. T1 and T2-weighted scans were obtained. Sequences include spin-echo, fast spin echo, FLAIR, and diffusion weighted sequences. Post gadolinium enhanced axial coronal and sagittal images are included. The gadolinium enhancement dose is 19.8 mL of intravenous ProHance. MRI FINDINGS: T1 and T2-weighted scans show no bony calvarial destructive lesion. No intraorbital abnormality is seen. There is no MR evidence of significant paranasal sinus disease. There is moderate diffuse cerebral atrophy. There is no evidence of intracranial hemorrhage or acute ischemia. Diffusion weighted scans are unremarkable. There are some T2 hyperintensities in the periventricular and to a lesser extent subcortical white matter of the supratentorial brain consistent with small vessel atherosclerotic changes. No intracranial mass lesion is appreciated. Post gadolinium enhanced images show no abnormal gadolinium enhancement. IMPRESSION: Moderate diffuse cerebral atrophy. Mild small vessel microvascular changes. No acute intracranial lesion or calvarial metastasis is appreciated. Signed by Michael Santos MD 08/06/2016 01:50 P
[2016-08-06] MEDS: FOLIC ACID 1 MG TAB PO SCH (11:16)
[2016-08-06] MEDS: SENOKOT S TAB PO SCH ×2 (11:16→20:56)
[2016-08-06] MEDS: LISINOPRIL *2.5 MG* TAB PO SCH (11:17)
[2016-08-06] MEDS: ENOXAPARIN 30 MG/0.3 ML SYR (J1650) SC SCH (11:17)
[2016-08-06] MEDS: COSOPT OCUMETER PLUS 10ML (DORZOLAMIDE/TIMOLOL) OU SCH ×2 (11:17→20:56)
[2016-08-06] MEDS: DIPYRIDAMOLE/ASA (AGGRENOX) 200MG/25MG CAPCR PO SCH ×2 (11:17→20:56)
--- NOTE | 2016-08-06 11:24 | REP ---
MRI CERVICAL SPINE WITHOUT AND WITH IV GADOLINIUM: HISTORY: Metastatic prostate cancer with cervical spine mets. Question cord compression. Comparison is made with yesterday's bone scan. Elevated PSA. Gadolinium enhancement dose: 219.8 mL of intravenous ProHance is administered. TECHNIQUE: Sagittal and axial T1 and T2-weighted scans are acquired in the usual fashion with and without fat saturation. Sequences include spin echo, turbo spin-echo, and STIR imaging sequences. Post gadolinium enhanced images are also acquired in the axial and sagittal plane. MRI FINDINGS: Cervical vertebral body heights are preserved. Alignment is normal. There is some straightening of the normal cervical lordosis. On T1-weighted scans, there is a heterogeneous pattern of essentially diffuse low T1 signal intensity throughout the visualized bone marrow compatible with widespread skeletal metastatic disease. No localized "cortical destruction is seen. No fracture or collapse is noted. There is a heterogeneous mottled pattern of contrast enhancement throughout the marrow on postcontrast images. There is no evidence of epidural mass effect or cervical adenopathy. There is also evidence of degenerative disc disease at C5-6 where there is narrowing and desiccation of the C5-6 disc and some mild posterior osteophytic ridging is seen. There is bilateral neural foraminal narrowing at C5-6. There is ligamentum flavum and facet hypertrophy bilaterally at C5-6 as well. No cord compression is seen. Cervical cord is normal in coarse caliber and signal intensity. Mild central canal stenosis is present however at C5-6. No other disc herniation is seen. IMPRESSION: 1. Evidence of widespread marrow replacement disease consistent with a diffuse pattern of skeletal metastatic disease. No fracture or collapse noted. 2. No cord compressive lesion seen. 3. Mild degenerative spondylosis. This is most pronounced at C5-6 where there is mild central canal stenosis. Signed by Michael Santos MD 08/06/2016 01:50 P
--- NOTE | 2016-08-06 11:30 | REP ---
MRI THORACIC SPINE WITHOUT AND WITH IV GADOLINIUM: HISTORY: Metastatic prostate carcinoma. Question cord compression. Gadolinium enhancement dose: 19.8 mL of intravenous ProHance is administered. TECHNIQUE: Sagittal and axial T1 and T2-weighted scans are acquired in the usual fashion with and without fat saturation. Sequences include spin echo, turbo spin echo, and STIR imaging sequences. Post gadolinium enhanced axial and sagittal images are included as well. MRI FINDINGS: Thoracic vertebral body heights are preserved. No fracture or collapse is seen. There is a mottled pattern of low T1 low T2 signal intensity infiltration throughout the visualized marrow with mottled extensive pattern of contrast enhancement consistent with the essentially diffuse infiltrative pattern of metastatic disease throughout the marrow. There is no evidence of epidural extension or cord compression. There is mild degenerative disc disease in the mid thoracic spine. There is a right posterior disc protrusion at T8-9, which subtly indents the ventral lateral margin of the thecal sac. No cord or root compression is seen. No neural foraminal narrowing is appreciated. The conus is normal in position and appearance at T12. No paraspinal soft tissue mass is appreciated. IMPRESSION: A diffuse pattern of mottled widespread skeletal metastatic disease. No fracture or collapse is seen. No epidural disease or cord compression is seen. Right-sided disc herniation noted at the T8-9. Signed by Michael Santos MD 08/06/2016 01:50 P
--- NOTE | 2016-08-06 11:47 | REP ---
MRI LUMBAR SPINE WITHOUT CONTRAST: HISTORY: Metastatic prostate carcinoma. Question cord compression. TECHNIQUE: Sagittal and axial T1 and T2-weighted scans are acquired in the usual fashion with and without fat saturation. Sequences include spin echo, turbo spin-echo, and STIR imaging sequences. Post gadolinium enhanced imaging is included. The gadolinium enhancement dose is 19.8 mL of intravenous ProHance. MRI FINDINGS: There is a mottled pattern of essentially diffuse marrow replacement on T1-weighted pre-gadolinium enhanced images with mottled enhancement on post denis images consistent with widespread skeletal metastatic disease corresponding with the recent bone scan. There is a moderate levoconvex rotoscoliotic curve in the lumbar spine. There is no visible epidural neoplastic extension. There is however extensive degenerative spondylosis change in the lumbar spine. Conus medullaris is normal in appearance and position at T12. At the L1-2, there is diffuse disc bulging. Mild facet hypertrophy is noted. No central canal stenosis is seen. There is mild right-sided neural foraminal narrowing. At the L2-3, there is advanced degenerative disc disease with posterior osteophytic ridging and mild diffuse disc bulging. Mild facet hypertrophy is noted bilaterally. No central canal stenosis is noted. There is right-sided neural foraminal narrowing at L2-3. At L3-4, there are similar findings with more pronounced facet hypertrophy. There is moderate right-sided neural foraminal narrowing from facet and discogenic spurring. Canal size is borderline and L3-4. Facet and ligamentum flavum hypertrophy are more prominent on the right. At L4-5, there is moderate to advanced bilateral facet hypertrophy. There is moderate right-sided neural foraminal encroachment due to discogenic spurring and facet spurring. Minimal left-sided neural foraminal encroachment is seen. There is mild central canal stenosis. The ligamentum flavum and facet hypertrophy contribute to this. At L5-S1, there is moderate bilateral osteoarthritic facet disease. Diffuse disc bulging and osteophytic ridging is seen. Bilateral neural foraminal narrowing is seen from facet spurring and discogenic spurring. No central canal stenosis is seen. IMPRESSION: A diffuse infiltrative pattern of widespread skeletal marrow replacement disease consistent with metastasis is seen. No cord or cauda equina compression from neoplasm noted. There is mild central canal stenosis at L4-5 due to degenerative spondylosis and there is multilevel neural foraminal narrowing. No evidence of epidural neoplasm. Signed by Michael Santos MD 08/06/2016 01:50 P
[2016-08-06 14:00] VITALS: BP 139/80
--- NOTE | 2016-08-06 14:58 | IPNPDOC ---
Subjective Date Seen The patient was seen on 08/06/16. Subjective Chief Complaint/HPI The patient is a 85-year-old male admitted with a reason for visit of Rhabdomyolysis Due To Statin Therapy. General: Denies: Chills, Night Sweats Skin: Denies: Rash, Breakdown Pulmonary: Denies: Dyspnea, Cough Cardiovascular: Denies: Chest Pain, Palpitations, Orthopnea Gastrointestinal: Denies: Nausea, Vomiting, Abdominal Pain Objective Physical Examination General Exam: Positive: Alert, Cooperative, No Acute Distress Eye Exam: Positive: PERRLA ENT Exam: Positive: Atraumatic Neck Exam: Positive: Supple, Negative: thyromegaly Chest Exam: Positive: Clear to auscultation, Normal air movement, Negative: Rales, Rhonchi Heart Exam: Positive: Rate Normal, Regular Rhythm, Negative: Tachycardic Abdomen Exam: Positive: Normal bowel sounds, Soft, Negative: Tenderness Skin Exam: Positive: Nl turgor and temperature, Negative: Rash Neuro Exam: Positive: Normal Tone Psych Exam: Positive: Mental status NL Assessment /Plan Problems (1) Pain from bone metastases Status: Acute Response to Treatment: Uncontrolled Problem Text: 08/05 + dexa 2 BID (defer NSAID given HTN, Aggrenox use), continue MSIR prn, + Senokot-S given recent SBO, t/c palliative XRT P MRI 08/[address] Huertas engaged. Will see today. elevated PSA and widespread NM uptake on bone scan suggest metastatic prostate ca. SPEP is pending at this time. 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 bone marrow changes c/w metastatic disease noted. Creatinine up a little today, likely some nephron injury from rhabdo (3) Elevated PSA Discussed With: Pt and Family Services Problem Text: favor symptoms 2 metastatic prostate cancer-need to stage probable ADT +/- docetaxel-plan consult Onc when results back 08/03/16 CT AP s/c NAD 08/05/16 PSA 48.1! (last in [place] 11/2007 1.0) 08/05/16 ALP 661 (01/2016 58)-favor 2 bone mets elva given AST elevation also(GGTP and liver US P) 08/05/16 WBBS P 08/06/16: Dr. Huertas to see today. Would favor hormone ablation as initial choice. Doubt patient would consent for biopsy. s/p TURP [address] Esposito-op note and pathology not in [place] (4) Normocytic anemia Status: Acute Response to Treatment: Worse Problem Text: favor 2 BM involvement of prostate cancer/ACD 08/05/16 9.4, MCV 85 05/2016 hgb 14.7 07/2016 B12 1037 07/2016 folate 3.9- + FA 1 mg QD 07/2016 % sat 26 (5) Hypomagnesemia Status: Acute Problem Specific Plan: Repeat Labs Problem Text: Give mag run. 08/06/16. Mag normal today, will recheck in am. (6) Inguinal hernia bilateral, non-recurrent Status: Chronic Response to Treatment: Stable Problem Specific Plan: Monitor Clinically Problem Text: favor to postpone given asx and more pressing issues-obviously + bowel regimen to reduce recurrent SBO risk (7) Thrombocytopenia Status: Acute Response to Treatment: Worse Problem Text: Unknown cause. also anemia is new. possibly related to rhabdo but still believe statin is culprit. will reduce lovenox dose, monitor. consider heme consult. 08/06: platelets improved. (8) T2DM (type 2 diabetes mellitus) Status: Chronic Response to Treatment: Uncontrolled Problem Text: 08/05 probably + basal insulin pending BS on dexa 08/04 A1C 8.7-c FBSs mid [id number] until now Plan/VTE VTE Prophylaxis Ordered?: Yes (reduced Lovenox dose due to low platelets) Plan IVF: Decrease Activity: Continue Current Therapy: PT Anticipated Discharge: Home VS, I&O, 24H, [facility] Vital Signs/I&O Vital Signs Date Time Temp Pulse Resp B/P (MAP) Pulse Ox O2 Delivery O2 Flow Rate FiO2 08/06/16 11:17 138/81 08/06/16 06:00 97.8 80 17 97 Room Air I&O- Last 24 Hours up to 6 AM 08/06/16 06:00 Intake Total 2600 ml Output Total 3425 ml Balance -825 ml Laboratory Data 24H LABS Laboratory Tests 2 08/05/16 16:35: Bedside Glucose (Misc Panel) 192H 08/05/16 20:44: Bedside Glucose (Misc Panel) 162H 08/06/16 06:59: Anion Gap 16, Glomerular Filtration Rate > 60.0, Blood Urea Nitrogen 14, Creatinine 1.18#, Sodium Level 139, Potassium Level 3.9, Chloride Level 102, Carbon Dioxide Level 21, Calcium Level 9.7, Aspartate Amino Transf (AST/SGOT) 113H, Alanine Aminotransferase (ALT/SGPT) 16, Total Creatine Kinase 1959H, Alkaline Phosphatase 756H, Total Bilirubin 1.0, Total Protein 6.8, Albumin 3.0#L , Magnesium Level 1.8, Albumin/Globulin Ratio 0.79L 08/06/16 12:07: Bedside Glucose (Misc Panel) 139H CBC/BMP Laboratory Tests 08/06/16 06:59 Red Blood Count 3.98 L, Mean Corpuscular Volume 88.6, Mean Corpuscular Hemoglobin 29.9, Mean Corpuscular Hemoglobin Concent 33.7, Red Cell Distribution Width 15.2 H, Calcium Level 9.7, Aspartate Amino Transf (AST/SGOT) 113 H, Alanine Aminotransferase (ALT/SGPT) 16, Total Creatine Kinase 1959 H, Alkaline Phosphatase 756 H, Total Bilirubin 1.0, Total Protein 6.8, Albumin 3.0 #L Microbiology Microbiology 08/05/16 Stool Occult Blood (YOJANA) - Final, Complete Manish Funes MD August 06, 2016 14:58
[2016-08-06] MEDS: LATANOPROST 0.005% OPHTH SOLN 2.5 ML OU SCH (20:56)
[2016-08-06 22:00] VITALS: BP 105/51
--- NOTE | 2016-08-06 23:55 | CR ---
DATE OF CONSULTATION: 08/06/2016 Dr. Manish Funse of Medicine requested medical oncology consult recommendations regarding Mr. Jorge Luis Seymour, an 85-year-old man admitted with malaise, total body pain, found to have widespread apparent bone metastases in the absence of a visceral primary tumor. Jorge Luis Seymour is an 85-year-old man with usual for age medical problems, status post transurethral resection of bladder tumor (TURBT) in the early , history of colectomy for benign polyps, and recent small-bowel obstruction due to incarcerated hernia, managed medically with a plan for surgical repair. In the last month he has developed generalized aches and pains involving shoulder and back, anorexia, weight loss. He lives alone in [place] with family members nearby. He does his own grocery shopping. Gets help for meals. Drives short distances. 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 Denies alcohol. On admission Friday night, early in the morning when he could not tolerate the pain he felt any longer, he was found to have no obvious intra-abdominal lesion on CT abdomen and pelvis. He has a stable, benign-appearing hepatic cyst, unremarkable renal imaging. Notably, the abdomen and pelvis CT: Bone windows are read as "free of lytic or blastic lesions with multi-level degenerative joint disease (DJD), involving thoracolumbar spine.". Labs on admission notable for elevated CK 3249, alkaline phosphatase elevated 767, AST 585, ALT 42. The AST has since resolved, ALT normal, alkaline phosphatase persistently elevated, and CK gradually improving now, approximately 2000. Troponin was negative. Albumin decreased at 2.5, creatinine normal, calcium corrects appropriately, bilirubin normal. During this admission, further imaging has revealed a bone scan with extensive widespread skeletal metastatic disease, question prostate malignancy: Diffuse pattern heterogeneous increased uptake in the axial skeleton. Extensive involvement of rib cage bilaterally, pelvis, both scapulae, both clavicles, sternum, proximal femurs, cervical and thoracic spine, distal femur, right proximal tibia, left proximal fibular lesions. Brain, cervical spine, and lumbar spine MRI were performed. No evidence of intracranial metastases. No calvarial lesion seen on brain MRI. Cervical, lumbar, and thoracic MRI re-demonstrate multiple bony lesions with mottled pattern of diffuse marrow replacement, extensive DJD in the lumbosacral (LS) spine. No evidence of cord compressing lesions. On interview, the patient is reclining in the bed surrounded by a daughter and granddaughter. He reports feeling much better in the last 24 hours. Dexamethasone was begun yesterday, 2 mg twice a day. Tonight the patient's appetite increased, and he had a good dinner. His musculoskeletal pain is also resolved. The last time he had a pain pill, he says, was a few days ago. He has had some loose stools. No agustin diarrhea. No constipation. No blood in the stool. He denies cough, fevers, or sweats. Prostate-specific antigen (PSA) is 48. There are no recent comparaters. Previously it was 1 several years ago. PAST MEDICAL HISTORY: 1. Hypertension. 2. "Prediabetes," receiving insulin during this admission. 3. Mild cerebrovascular accident (CVA). No residual deficit. HOME MEDICATIONS: Include: - lisinopril 2.5 mg daily - hydrochlorothiazide 12.5 mg daily - pravastatin 20 mg daily - Aggrenox 25/200 twice daily - vitamin D 2000 units daily - vitamin C 250 mg daily - B12 at 2500 mcg daily - Lumigan 0.03% drops at bedtime - Cosopt one drop each eye twice daily - ketoconazole 2% shampoo ALLERGIES: SULFA. PAST SURGICAL HISTORY: 1. Right hemicolectomy in 2003. 2. Appendectomy in 1959. 3. Left wrist fracture. 4. Ear surgery in 2009. SOCIAL HISTORY: The patient is a former ever cigar smoker for a few years. Stopped many decades ago. Rare alcohol intake. . Lives in [place]. Family nearby and involved. 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 REVIEW OF SYSTEMS: In addition to pertinent positives and negatives noted above, the patient denies any hematuria. He has had increasing urinary frequency and difficulties making a stream in the last few years, getting up in the night frequently. He denies bloody stool, abdominal discomfort, shortness of breath, cough, palpitations, chest pain. He has had some scapular pain, shoulder pain in the last few weeks, resolved today. Remainder of 12-system review negative. PHYSICAL EXAMINATION: VITAL SIGNS: Temperature 97.2, blood pressure 139/80, heart rate 80, respiratory rate 16, oxygen saturation 95%. Patient is a slightly overweight well-groomed appearing, older gentleman, lying in bed. No distress. Notable in appearance for very smooth skin. Calm and speaking in full sentences. Making good eye contact. Limited exam. LYMPH NODES: No submandibular, cervical, supraclavicular, axillary, or inguinal adenopathy bilaterally. ABDOMEN: Nondistended, nontender. No auscultation performed. No suspicious palpable mass. There is a soft, reducible midline abdominal hernia. EXTREMITIES: Trace pedal edema, symmetric bilaterally. CARDIAC: Not performed. Labs in addition to those noted above: CBC notable for normal WBC and platelets. Mild normocytic anemia. Hemoglobin 11.9, hematocrit 35. Creatinine 1.18. Calcium 9.7, albumin 3.0, ESR 67 on admission. Haptoglobin is pending. SPEP: Nonspecific. No M spike, consistent with inflammatory processes. RF and NIDA are negative. Anti-Nuar antibody is pending. Imaging is discussed. IMPRESSION: An 85-year-old man with musculoskeletal pain, found to have widespread skeletal uptake, dominantly involving the axial skeleton on MRI with no cord-threatening lesions and no intracranial lesions in the setting of a moderately elevated PSA at 48 and mild prostatism symptoms. Complete blood count (CBC), serum protein electrophoresis (SPEP), albumin, creatinine, and calcium are unremarkable. The overall clinical impression is of metastatic prostate cancer, though the extent of bony involvement and PSA elevation seem discordant. Of note, bone scan shows multiple lesions involving weightbearing bones; further of note, bone windows on CT abdomen and pelvis were read as negative for bone lesions. RECOMMENDATIONS: 1. I agree with continuing dexamethasone 2 mg by mouth twice a day as a low- dose treatment for the widespread bony presumptive metastatic disease. 2. The patient agrees to starting bicalutamide empirically. This is given 50 mg by mouth daily. Without a tissue biopsy, there is risk in starting this drug. Primarily the risk that it would not work, and another process would progress. Despite this, he would like to start it. 3. Another empiric treatment that could be tried as zoledronic acid 4 mg IV. This would empirically treat metastatic prostate cancer involving bone and multiple myeloma, though this serologic evidence of myeloma is extremely low. 4. Weightbearing films should be done: Bilateral hips, pelvis, and femurs to rule out potentially unstable cortical lesion. If he cortical instability is identified, orthopedics should be consulted regarding potential need for stabilization. 5. I discussed tissue biopsy with the patient anu. He does not want to have a bone marrow biopsy, but he would be willing to consider a CT-guided biopsy. There is moderate difference between these two tests, the bone marrow biopsy probably being the more labor intensive and potentially more painful. He agreed to consider a CT-guided biopsy. I think an appropriate target would be a CT identified vertebral lesion, for example. 6. As long as the patient is feeling comfortable, he could potentially discharge home and followup with me as an outpatient; however, without a clear diagnosis, there is risk that whatever this process is will progress. I frankly explained to Mr. Seymour and his family I am not entirely convinced he has a metastatic prostate cancer or multiple myeloma, though alternatives are also not clear to me. The pattern of bone involvement does not mesh with the only modest elevation of PSA. The discordance between CT bone windows and MRI windows is also somewhat unusual. Widespread uptake on bone scan is not typical of multiple myeloma, as myeloma lesions are typically lytic. The free light chains can be followed up potentially as an outpatient, and if a bone marrow biopsy is absolutely indicated, and the patient wants to go forward with it, we could do this outpatient. Prakashleni in a lengthy discussion with him and his family, he said he wants to do the most simple, easy, straightforward things, even if they are trial and error, and there is no clear tissue biopsy. I think a trial of empiric treatment of metastatic prostate cancer outlined above is very reasonable. I will follow intermittently as needed. Thank you for this consult. A total of 55 minutes was spent face to face with the patient, more than 50% involved in counseling and coordination of care. ANDREA
[2016-08-07] MEDS: NS 1,000 ML IV SCH (04:16)
[2016-08-07 06:00] VITALS: BP 114/57
[2016-08-07 06:49] LABS: MEAN CORPUSCULAR HEMOGLOBIN 29.3 pg (27.0-33.0); MEAN CORPUSCULAR HGB CONC 33.9 g/dl (32.0-36.5); MEAN CORPUSCULAR VOLUME 86.3 fl (80.0-96.0); RED CELL DISTRIBUTION WIDTH 15.4 % (11.5-14.5); WHITE BLOOD COUNT 4.5 K/mm3 (4.0-10.0)
[2016-08-07 07:05] LABS: ALBUMIN 2.4 GM/DL (3.2-5.2); ALBUMIN/GLOBULIN RATIO 0.67 (1.00-1.93); ALKALINE PHOSPHATASE 535 U/L (45-117); ALT/SGPT 15 U/L (12-78); ANION GAP 10 MEQ/L (8-16); AST/SGOT 56 U/L (15-37); BILIRUBIN,TOTAL 0.5 MG/DL (0.2-1.0); BLOOD UREA NITROGEN 19 MG/DL (7-18); CALCIUM LEVEL 8.9 MG/DL (8.8-10.2); CARBON DIOXIDE LEVEL 25 MEQ/L (21-32); CHLORIDE LEVEL 105 MEQ/L (98-107); CREATININE FOR GFR 0.87 MG/DL (0.70-1.30); GLOMERULAR FILTRATION RATE > 60.0 (>35); GLUCOSE, FASTING 177 MG/DL (83-110); POTASSIUM SERUM 3.9 MEQ/L (3.5-5.1); SODIUM LEVEL 140 MEQ/L (136-145)
[2016-08-07] MEDS: LISINOPRIL *2.5 MG* TAB PO SCH (08:03)
[2016-08-07] MEDS: DIPYRIDAMOLE/ASA (AGGRENOX) 200MG/25MG CAPCR PO SCH ×2 (08:03→20:24)
[2016-08-07] MEDS: HumaLOG INSULIN (NovoLOG) PER UNIT SC SCH ×4 (08:03→20:32)
[2016-08-07] MEDS: SENOKOT S TAB PO SCH ×2 (08:04→20:23)
[2016-08-07] MEDS: FOLIC ACID 1 MG TAB PO SCH (08:04)
[2016-08-07] MEDS: COSOPT OCUMETER PLUS 10ML (DORZOLAMIDE/TIMOLOL) OU SCH ×2 (08:04→20:24)
[2016-08-07] MEDS: ENOXAPARIN 30 MG/0.3 ML SYR (J1650) SC SCH (10:00)
--- NOTE | 2016-08-07 12:20 | IPNPDOC ---
Subjective Date Seen The patient was seen on 08/07/16. Subjective Chief Complaint/HPI The patient is a 85-year-old male admitted with a reason for visit of Rhabdomyolysis Due To Statin Therapy. Events since last encounter Pt states he is feeling better today. Denies any new issues. Denies CP, SOB, Abd pain. Constitutional: Denies: Chills, Fever Pulmonary: Denies: Dyspnea Cardiovascular: Denies: Chest Pain Gastrointestinal: Denies: Abdominal Pain Objective Physical Examination General Exam: Positive: Alert, Cooperative, No Acute Distress Eye Exam: Positive: PERRLA ENT Exam: Positive: Atraumatic Neck Exam: Positive: Supple, Negative: thyromegaly Chest Exam: Positive: Clear to auscultation, Normal air movement, Negative: Rales, Rhonchi Heart Exam: Positive: Rate Normal, Regular Rhythm, Negative: Tachycardic Abdomen Exam: Positive: Normal bowel sounds, Soft, Negative: Tenderness Skin Exam: Positive: Nl turgor and temperature, Negative: Rash Neuro Exam: Positive: Normal Tone Psych Exam: Positive: Mental status NL Assessment /Plan Problems (1) Pain from bone metastases Status: Acute Response to Treatment: Uncontrolled Problem Text: 08/05 + dexa 2 BID (defer NSAID given HTN, Aggrenox use), continue MSIR prn, + Senokot-S given recent SBO, t/c palliative XRT P MRI 08/[address] Huertas engaged. Will see today. elevated PSA and widespread NM uptake on bone scan suggest metastatic prostate ca. SPEP is pending at this time. 08/07 - Pt seen by Dr Blanco. Bone metastases likely secondary to Prostate cancer (PSA 48.10). She advises starting bicalutamide 50 mg daily. Continue dexamethasone. Pt to have bone biopsy. Dr Funes discussed with radiology to set this up. Dr Blanco also recommends weightbearing films of B/L hips, pelvis, and femurs. Consider ortho consult regarding potential need for stabilization. SPEP: "RELATIVE HYPOALBUMINEMIA. INCREASED ALPHA 1 & 2 FRACTIONS INDICATIVE OF ACUTE INFLAMMATION." Will order JERAMY. 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 bone marrow changes c/w metastatic disease noted. Creatinine up a little today, likely some nephron injury from rhabdo 08/07 - Creat has been trending down. Renal function has been improving. (3) Elevated PSA Discussed With: Pt and Family Services Problem Text: favor symptoms 2 metastatic prostate cancer-need to stage probable ADT +/- docetaxel-plan consult Onc when results back 08/03/16 CT AP s/c NAD 08/05/16 PSA 48.1! (last in [place] 11/2007 1.0) 08/05/16 ALP 661 (01/2016 58)-favor 2 bone mets elva given AST elevation also(GGTP and liver US P) 08/05/16 WBBS P 08/06/16: Dr. Huertas to see today. Would favor hormone ablation as initial choice. Doubt patient would consent for biopsy. s/p TURP [address] Esposito-op note and pathology not in [place] 08/07 - Seen by Dr Blanco. Dr Funes arranging bone biopsy with radiology. SPEP: "RELATIVE HYPOALBUMINEMIA. INCREASED ALPHA 1 & 2 FRACTIONS INDICATIVE OF ACUTE INFLAMMATION." Will order JERAMY. (4) Normocytic anemia Status: Acute Response to Treatment: Worse Problem Text: favor 2 BM involvement of prostate cancer/ACD 08/05/16 9.4, MCV 85 05/2016 hgb 14.7 07/2016 B12 1037 07/2016 folate 3.9- + FA 1 mg QD 07/2016 % sat 26 (5) Hypomagnesemia Status: Resolved Problem Specific Plan: Repeat Labs Problem Text: 08/07 - Continue to monitor Magnesium. Give mag run. 08/06/16. Mag normal today, will recheck in am. (6) Inguinal hernia bilateral, non-recurrent Status: Chronic Response to Treatment: Stable Problem Specific Plan: Monitor Clinically Problem Text: favor to postpone given asx and more pressing issues-obviously + bowel regimen to reduce recurrent SBO risk (7) Thrombocytopenia Status: Acute Response to Treatment: Worse Problem Text: Unknown cause. also anemia is new. possibly related to rhabdo but still believe statin is culprit. will reduce lovenox dose, monitor. consider heme consult. 08/06: platelets improved. 08/07 - Plts down to 119. Seen by Dr Blanco. (8) T2DM (type 2 diabetes mellitus) Status: Chronic Response to Treatment: Uncontrolled Problem Text: 08/05 probably + basal insulin pending BS on dexa 08/04 A1C 8.7-c FBSs mid [id number] until now Plan/VTE VTE Prophylaxis Ordered?: Yes (reduced Lovenox dose due to low platelets) Plan IVF: Decrease Activity: Continue Current Therapy: PT Anticipated Discharge: Home VS, I&O, 24H, Fishbone Vital Signs/I&O Vital Signs Date Time Temp Pulse Resp B/P (MAP) Pulse Ox O2 Delivery O2 Flow Rate FiO2 08/07/16 08:03 114/57 08/07/16 06:00 97.4 68 17 98 Room Air I&O- Last 24 Hours up to 6 AM 08/07/16 06:00 Intake Total 1780 ml Output Total 1900 ml Balance -120 ml Laboratory Data 24H LABS Laboratory Tests 2 08/06/16 12:07: Bedside Glucose (Misc Panel) 139H 08/06/16 16:47: Bedside Glucose (Misc Panel) 173H 08/06/16 20:17: Bedside Glucose (Misc Panel) 230H 08/07/16 06:26: Anion Gap 10, Glomerular Filtration Rate > 60.0, Blood Urea Nitrogen 19H, Creatinine 0.87, Sodium Level 140, Potassium Level 3.9, Chloride Level 105, Carbon Dioxide Level 25, Calcium Level 8.9, Aspartate Amino Transf (AST/SGOT) 56H, Alanine Aminotransferase (ALT/SGPT) 15, Alkaline Phosphatase 535H, Total Bilirubin 0.5, Total Protein 6.0L, Albumin 2.4L, Albumin/Globulin Ratio 0.67L 08/07/16 11:28: Bedside Glucose (Misc Panel) 256H CBC/BMP Laboratory Tests 08/07/16 06:26 Red Blood Count 3.22 L, Mean Corpuscular Volume 86.3, Mean Corpuscular Hemoglobin 29.3, Mean Corpuscular Hemoglobin Concent 33.9, Red Cell Distribution Width 15.4 H, Calcium Level 8.9, Aspartate Amino Transf (AST/SGOT) 56 H, Alanine Aminotransferase (ALT/SGPT) 15, Alkaline Phosphatase 535 H, Total Bilirubin 0.5, Total Protein 6.0 L, Albumin 2.4 L Microbiology Microbiology 08/05/16 Stool Occult Blood (YOJANA) - Final, Complete Attending Note Attending Note Patient seen and examined. Will start oral antitestosterone agent and patient would like to proceed with bone biopsy. Lovenox held until test. Likely discharge once accomplished if functional status is satisfactory. Adiel Ralph August 07, 2016 12:19 Manish Funes MD August 07, 2016 14:43
[2016-08-07] MEDS: BICALUTAMIDE 50 MG TAB PO SCH (13:38)
[2016-08-07 14:00] VITALS: BP 107/57
--- NOTE | 2016-08-07 15:38 | REP ---
REASON: Bone metastasis. AP pelvis shows moderate bilateral degenerative changes with bilateral buttressing left greater than right. The bones appear demineralized. Secondary to overlying bowel I cannot say with certainty whether lucency seen in the ileal represent bone lucencies or lucencies secondary to gas in the gut. Chronic changes seen involving the imaged portions of the spine. IMPRESSION: Chronic changes and limitations as described above. If metastatic disease is of clinical concern, obtain a bone scan. RIGHT HIP, TWO VIEWS: There is moderate asymmetric hip joint space narrowing with buttressing. There is no acute fracture or dislocation. There does appear to be a lucency in the inferior pubic ramus difficult to evaluate on this plain film. IMPRESSION: Findings as described above. TWO VIEWS OF THE LEFT HIP: There is moderate asymmetric hip joint space narrowing of buttressing. There appear to be some lucencies in the femoral neck region difficult to evaluate by plain film. The bones do appear to be generally demineralized. IMPRESSION: As above. If lytic lesions are of clinical concern due to metastatic disease, then bone scintigraphy would be in order. Signed by Darrel Elder DO 08/07/2016 04:18 P
--- NOTE | 2016-08-07 15:51 | REP ---
REASON: Assess for metastatic disease. AP and lateral view of the right femur shows no evidence of an acute fracture or destructive osseous lesion. AP and lateral views of the left femur shows no evidence of an acute fracture or destructive osseous lesion. Signed by Darrel Elder DO 08/07/2016 04:18 P
[2016-08-07] MEDS: LATANOPROST 0.005% OPHTH SOLN 2.5 ML OU SCH (20:24)
[2016-08-07 22:00] VITALS: BP 152/80
[2016-08-08 00:06] LABS: ANTI HU ANTIBODY <1:10 Titer (.)
[2016-08-08] MEDS: MORPHINE 2 MG/ML 1ML SYRINGE IV PRN ×2 (02:45→18:12)
[2016-08-08 06:00] VITALS: BP 153/76
[2016-08-08 06:48] LABS: BASO % 0.3 % (0.0-1.0); EOS % 0.5 % (0.0-3.0); LARGE UNSTAINED CELL # 0.1 K/mm3 (0.0-0.4); LARGE UNSTAINED CELL % 1.5 % (0.0-4.0); LYMPH # 1.2 K/mm3 (1.5-4.5); LYMPH % 18.5 % (24.0-44.0); MEAN CORPUSCULAR HEMOGLOBIN 29.6 pg (27.0-33.0); MEAN CORPUSCULAR HGB CONC 33.4 g/dl (32.0-36.5); MEAN CORPUSCULAR VOLUME 88.7 fl (80.0-96.0); MONO # 0.4 K/mm3 (0.0-0.8); MONO % 6.2 % (0.0-5.0); NEUTROPHILS # 4.7 K/mm3 (1.8-7.7); PLATELET COUNT, AUTOMATED 149 k/mm3 (150-450); RED CELL DISTRIBUTION WIDTH 15.2 % (11.5-14.5); WHITE BLOOD COUNT 6.5 K/mm3 (4.0-10.0)
[2016-08-08 07:32] LABS: ALBUMIN 2.7 GM/DL (3.2-5.2); ALBUMIN/GLOBULIN RATIO 0.71 (1.00-1.93); ALKALINE PHOSPHATASE 543 U/L (45-117); ALT/SGPT 16 U/L (12-78); ANION GAP 8 MEQ/L (8-16); AST/SGOT 64 U/L (15-37); BILIRUBIN,TOTAL 0.4 MG/DL (0.2-1.0); BLOOD UREA NITROGEN 18 MG/DL (7-18); CALCIUM LEVEL 9.5 MG/DL (8.8-10.2); CARBON DIOXIDE LEVEL 27 MEQ/L (21-32); CHLORIDE LEVEL 104 MEQ/L (98-107); CREATININE FOR GFR 0.86 MG/DL (0.70-1.30); GLOMERULAR FILTRATION RATE > 60.0 (>35); GLUCOSE, FASTING 177 MG/DL (83-110); POTASSIUM SERUM 3.7 MEQ/L (3.5-5.1); SODIUM LEVEL 139 MEQ/L (136-145); TOTAL PROTEIN 6.5 GM/DL (6.4-8.2)
[2016-08-08] MEDS: SENOKOT S TAB PO SCH ×2 (07:37→20:28)
[2016-08-08] MEDS: ENOXAPARIN 30 MG/0.3 ML SYR (J1650) SC SCH (09:00)
[2016-08-08] MEDS: HumaLOG INSULIN (NovoLOG) PER UNIT SC SCH ×4 (09:11→20:28)
[2016-08-08] MEDS: LISINOPRIL *2.5 MG* TAB PO SCH (09:12)
[2016-08-08] MEDS: BICALUTAMIDE 50 MG TAB PO SCH (09:12)
[2016-08-08] MEDS: FOLIC ACID 1 MG TAB PO SCH (09:13)
[2016-08-08] MEDS: COSOPT OCUMETER PLUS 10ML (DORZOLAMIDE/TIMOLOL) OU SCH ×2 (09:13→20:27)
[2016-08-08] MEDS: DIPYRIDAMOLE/ASA (AGGRENOX) 200MG/25MG CAPCR PO SCH ×2 (09:13→20:27)
--- NOTE | 2016-08-08 10:50 | IPNPDOC ---
Subjective Date Seen The patient was seen on 08/08/16. Subjective Chief Complaint/HPI The patient is a 85-year-old male admitted with a reason for visit of Rhabdomyolysis Due To Statin Therapy. Events since last encounter Pt notes he has been having diarrhea for past couple days. Denies Abd pain. Denies CP, SOB Constitutional: Denies: Chills, Fever Pulmonary: Denies: Dyspnea Cardiovascular: Denies: Chest Pain Gastrointestinal: Reports: Diarrhea, Denies: Nausea, Vomiting, Abdominal Pain Objective Physical Examination General Exam: Positive: Alert, Cooperative, No Acute Distress Eye Exam: Positive: PERRLA ENT Exam: Positive: Atraumatic Neck Exam: Positive: Supple, Negative: thyromegaly Chest Exam: Positive: Clear to auscultation, Normal air movement, Negative: Rales, Rhonchi Heart Exam: Positive: Rate Normal, Regular Rhythm, Negative: Tachycardic Abdomen Exam: Positive: Normal bowel sounds, Soft, Negative: Tenderness Skin Exam: Positive: Nl turgor and temperature, Negative: Rash Neuro Exam: Positive: Normal Tone Psych Exam: Positive: Mental status NL Assessment /Plan Problems (1) Pain from bone metastases Status: Acute Response to Treatment: Uncontrolled Problem Text: 08/05 + dexa 2 BID (defer NSAID given HTN, Aggrenox use), continue MSIR prn, + Senokot-S given recent SBO, t/c palliative XRT P MRI 08/[address] Huertas engaged. Will see today. elevated PSA and widespread NM uptake on bone scan suggest metastatic prostate ca. SPEP is pending at this time. 08/07 - Pt seen by Dr Blanco. Bone metastases likely secondary to Prostate cancer (PSA 48.10). She advises starting bicalutamide 50 mg daily. Continue dexamethasone. Pt to have bone biopsy. Dr Funes discussed with radiology to set this up. Dr Blanco also recommends weightbearing films of B/L hips, pelvis, and femurs. Consider ortho consult regarding potential need for stabilization. SPEP: "RELATIVE HYPOALBUMINEMIA. INCREASED ALPHA 1 & 2 FRACTIONS INDICATIVE OF ACUTE INFLAMMATION." Will order JERAMY. 08/08 - Pt seen by Dr Blanco. Bone metastases likely secondary to Prostate cancer (PSA 48.10). She advised starting bicalutamide 50 mg daily. Pt was started on bicalutamide 50 mg daily yesterday. Continue dexamethasone. Pt is scheduled to have bone biopsy with radiology. Dr Funes discussed this with Dr Thornton. Weightbearing films of B/L hips, pelvis, and femurs. FEMUR: AP and lateral view of the right femur shows no evidence of an acute fracture or destructive osseous lesion. AP and lateral views of the left femur shows no evidence of an acute fracture or destructive osseous lesion RIGHT HIP, TWO VIEWS: There is moderate asymmetric hip joint space narrowing with buttressing. There is no acute fracture or dislocation. There does appear to be a lucency in the inferior pubic ramus difficult to evaluate on this plain film. TWO VIEWS OF THE LEFT HIP: There is moderate asymmetric hip joint space narrowing of buttressing. There appear to be some lucencies in the femoral neck region difficult to evaluate by plain film. The bones do appear to be generally demineralized. 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 bone marrow changes c/w metastatic disease noted. Creatinine up a little today, likely some nephron injury from rhabdo 08/07 - CK has been trending down. Renal function has been improving. 08/08 - CK trending down to 1008. (3) Elevated PSA Discussed With: Pt and Family Services Problem Text: favor symptoms 2 metastatic prostate cancer-need to stage probable ADT +/- docetaxel-plan consult Onc when results back 08/03/16 CT AP s/c NAD 08/05/16 PSA 48.1! (last in [place] 11/2007 1.0) 08/05/16 ALP 661 (01/2016 58)-favor 2 bone mets elva given AST elevation also(GGTP and liver US P) 08/05/16 WBBS P 08/06/16: Dr. Huertas to see today. Would favor hormone ablation as initial choice. Doubt patient would consent for biopsy. s/p TURP [address] Esposito-op note and pathology not in [place] 08/07 - Seen by Dr Blanco. Dr Funes arranging bone biopsy with radiology. SPEP: "RELATIVE HYPOALBUMINEMIA. INCREASED ALPHA 1 & 2 FRACTIONS INDICATIVE OF ACUTE INFLAMMATION." Will order JERAMY. 08/08 - Seen by onc. Bone biopsy scheduled for today. (4) Diarrhea Status: Acute Problem Specific Plan: Monitor Clinically, Repeat Labs Problem Text: 08/08 - Order GI panel. (5) Normocytic anemia Status: Acute Response to Treatment: Worse Problem Text: favor 2 BM involvement of prostate cancer/ACD 08/05/16 9.4, MCV 85 05/2016 hgb 14.7 07/2016 B12 1037 07/2016 folate 3.9- + FA 1 mg QD 07/2016 % sat 26 (6) Hypomagnesemia Status: Resolved Problem Specific Plan: Repeat Labs Problem Text: 08/08 - Mag 2.0 today. 08/07 - Continue to monitor Magnesium. Give mag run. 08/06/16. Mag normal today, will recheck in am. (7) Inguinal hernia bilateral, non-recurrent Status: Chronic Response to Treatment: Stable Problem Specific Plan: Monitor Clinically Problem Text: favor to postpone given asx and more pressing issues-obviously + bowel regimen to reduce recurrent SBO risk (8) Thrombocytopenia Status: Acute Response to Treatment: Worse Problem Text: Unknown cause. also anemia is new. possibly related to rhabdo but still believe statin is culprit. will reduce lovenox dose, monitor. consider heme consult. 08/06: platelets improved. 08/07 - Plts down to 119. Seen by Dr Blanco. 08/08 - Plts 149 (9) T2DM (type 2 diabetes mellitus) Status: Chronic Response to Treatment: Uncontrolled Problem Text: 08/05 probably + basal insulin pending BS on dexa 08/04 A1C 8.7-c FBSs mid [id number] until now Plan/VTE VTE Prophylaxis Ordered?: Yes (reduced Lovenox dose due to low platelets) Plan IVF: Decrease Activity: Continue Current Therapy: PT Anticipated Discharge: Home VS, I&O, 24H, Fishbone Vital Signs/I&O Vital Signs Date Time Temp Pulse Resp B/P (MAP) Pulse Ox O2 Delivery O2 Flow Rate FiO2 08/08/16 09:12 131/71 08/08/16 06:00 97.6 74 17 98 Room Air I&O- Last 24 Hours up to 6 AM 08/08/16 06:00 Intake Total 2460 ml Output Total 2250 ml Balance 210 ml Laboratory Data 24H LABS Laboratory Tests 2 08/07/16 11:28: Bedside Glucose (Misc Panel) 256H 08/07/16 16:27: Bedside Glucose (Misc Panel) 129H 08/07/16 20:04: Bedside Glucose (Misc Panel) 168H 08/08/16 06:33: White Blood Count 6.5, Red Blood Count 3.48L, Hemoglobin 10.3L, Hematocrit 30.9L , Mean Corpuscular Volume 88.7, Mean Corpuscular Hemoglobin 29.6, Mean Corpuscular Hemoglobin Concent 33.4, Red Cell Distribution Width 15.2H, Platelet Count 149L, Neutrophils (%) (Auto) 73.0H, Lymphocytes (%) (Auto) 18.5L , Monocytes (%) (Auto) 6.2H, Eosinophils (%) (Auto) 0.5, Basophils (%) (Auto) 0.3, Neutrophils # (Auto) 4.7, Lymphocytes # (Auto) 1.2L, Monocytes # (Auto) 0.4 , Eosinophils # (Auto) 0.0, Basophils # (Auto) 0.0, Large Unclassified Cells % 1.5, Large Unclassified Cells # 0.1, Anion Gap 8, Glomerular Filtration Rate > 60.0, Blood Urea Nitrogen 18, Creatinine 0.86, Sodium Level 139, Potassium Level 3.7, Chloride Level 104, Carbon Dioxide Level 27, Calcium Level 9.5, Aspartate Amino Transf (AST/SGOT) 64H, Alanine Aminotransferase (ALT/SGPT) 16, Total Creatine Kinase 1008H, Alkaline Phosphatase 543H, Total Bilirubin 0.4, Total Protein 6.5, Albumin 2.7L, Magnesium Level 2.0, Albumin/Globulin Ratio 0.71L CBC/BMP Laboratory Tests 08/08/16 06:33 Red Blood Count 3.48 L, Mean Corpuscular Volume 88.7, Mean Corpuscular Hemoglobin 29.6, Mean Corpuscular Hemoglobin Concent 33.4, Red Cell Distribution Width 15.2 H, Neutrophils (%) (Auto) 73.0 H, Lymphocytes (%) (Auto ) 18.5 L, Monocytes (%) (Auto) 6.2 H, Eosinophils (%) (Auto) 0.5, Basophils (%) (Auto) 0.3, Neutrophils # (Auto) 4.7, Lymphocytes # (Auto) 1.2 L, Monocytes # ( Auto) 0.4, Eosinophils # (Auto) 0.0, Basophils # (Auto) 0.0, Calcium Level 9.5, Aspartate Amino Transf (AST/SGOT) 64 H, Alanine Aminotransferase (ALT/SGPT) 16, Total Creatine Kinase 1008 H, Alkaline Phosphatase 543 H, Total Bilirubin 0.4, Total Protein 6.5, Albumin 2.7 L Microbiology Microbiology 08/05/16 Stool Occult Blood (YOJANA) - Final, Complete Adiel Ralph August 08, 2016 10:50
[2016-08-08] MEDS ORDERED: LIDOCAINE 1% MDV 20ML VIAL As Ordered ONE (11:51)
[2016-08-08 14:00] VITALS: BP 164/81
--- NOTE | 2016-08-08 17:41 | REP ---
CT GUIDED RIGHT PELVIC BONE BIOPSY: The procedure was performed under the direct supervision of Dr. Thornton. The patient has a history of wide spread skeletal metastatic disease seen on a previous bone scan performed on 08/05/2016. The risks and benefits of the procedure were explained to the patient and informed consent was obtained. A lesion in the right pelvis was localized using CT guidance. The skin was prepped and draped in a sterile fashion. 1% Lidocaine was used as a local anesthetic. Using CT guidance a 16 gauge bone biopsy system was inserted and 2 core biopsy samples were obtained. The patient tolerated the procedure well and there were no immediate complications. Reviewed by JALIL León 08/09/2016 04:50 PEdited and Signed by Danny Thornton MD 08/09/2016 07:53 P
[2016-08-08 20:20] VITALS: BP 145/68
[2016-08-08] MEDS: LATANOPROST 0.005% OPHTH SOLN 2.5 ML OU SCH (20:27)
--- NOTE | 2016-08-08 21:22 | IPN ---
DATE: 08/07/2016 Mr. Seymour had an uneventful night. He continues to feel better and was up walking around the hallways with assistance today. He is eating well. Pelvis and bilateral femur x-rays are negative for cortical disruption or a threatened fracture. A bone biopsy is planned. He has started bicalutamide 50 mg by mouth daily and continues on dexamethasone 2 mg twice a day. At the bedside, he is again surrounded by family. He is cheerful, talkative, reports feeling generally quite well. LABORATORY DATA: Today notable for persistent normocytic anemia and of note, hemoglobin 11.9 yesterday and 9.4 today, though all other CBCs have shown normocytic anemia, hemoglobin 9.4 to 9.6. Platelets are low normal at 119 and have been variable during this admission, farzana of 99, maximum 202. WBC count is normal. IMPRESSION: An 85-year-old man with widespread bone metastases involving axial skeleton primarily. No cord threatening lesions. No weightbearing bone insufficiency, fractures or threatened fractures. Osteopenia is present on imaging. He is currently feeling much better on low-dose dexamethasone and bicalutamide was started for presumptive metastatic prostate carcinoma. PLAN: 1. I have notified our nurse navigator, Shodna Mahmood, about this patient to help coordinate an early followup next week outpatient. Shonda's number is [phone]. Shonda can be contacted to setup an appointment for this patient. She will start working on that first thing in the morning. 2. For the present, the patient should remain on bicalutamide and low-dose dexamethasone and I will plan to taper him when I see him outpatient next week. MTDD
[2016-08-09 05:15] VITALS: BP 149/73
[2016-08-09 06:31] LABS: BASO % 0.1 % (0.0-1.0); EOS % 1.1 % (0.0-3.0); LARGE UNSTAINED CELL # 0.1 K/mm3 (0.0-0.4); LARGE UNSTAINED CELL % 1.6 % (0.0-4.0); LYMPH # 0.9 K/mm3 (1.5-4.5); LYMPH % 19.7 % (24.0-44.0); MEAN CORPUSCULAR HEMOGLOBIN 29.4 pg (27.0-33.0); MEAN CORPUSCULAR HGB CONC 33.6 g/dl (32.0-36.5); MEAN CORPUSCULAR VOLUME 87.3 fl (80.0-96.0); MONO # 0.4 K/mm3 (0.0-0.8); MONO % 8.1 % (0.0-5.0); NEUTROPHILS % 69.4 % (36.0-66.0); PLATELET COUNT, AUTOMATED 125 k/mm3 (150-450); RED CELL DISTRIBUTION WIDTH 15.6 % (11.5-14.5); WHITE BLOOD COUNT 4.3 K/mm3 (4.0-10.0)
[2016-08-09 07:02] LABS: ALBUMIN 2.4 GM/DL (3.2-5.2); ALBUMIN/GLOBULIN RATIO 0.73 (1.00-1.93); ALKALINE PHOSPHATASE 583 U/L (45-117); ALT/SGPT 24 U/L (12-78); ANION GAP 7 MEQ/L (8-16); AST/SGOT 184 U/L (15-37); BILIRUBIN,TOTAL 0.4 MG/DL (0.2-1.0); BLOOD UREA NITROGEN 22 MG/DL (7-18); CALCIUM LEVEL 8.6 MG/DL (8.8-10.2); CARBON DIOXIDE LEVEL 28 MEQ/L (21-32); CHLORIDE LEVEL 106 MEQ/L (98-107); CREATININE FOR GFR 0.92 MG/DL (0.70-1.30); GLOMERULAR FILTRATION RATE > 60.0 (>35); GLUCOSE, FASTING 161 MG/DL (83-110); POTASSIUM SERUM 4.2 MEQ/L (3.5-5.1); SODIUM LEVEL 141 MEQ/L (136-145); TOTAL PROTEIN 5.7 GM/DL (6.4-8.2)
[2016-08-09] MEDS: FOLIC ACID 1 MG TAB PO SCH (08:14)
[2016-08-09 08:15] VITALS: BP 141/92
[2016-08-09] MEDS: BICALUTAMIDE 50 MG TAB PO SCH (08:15)
[2016-08-09] MEDS: DIPYRIDAMOLE/ASA (AGGRENOX) 200MG/25MG CAPCR PO SCH (08:15)
[2016-08-09] MEDS: HumaLOG INSULIN (NovoLOG) PER UNIT SC SCH (08:15)
[2016-08-09] MEDS: SENOKOT S TAB PO SCH (08:15)
[2016-08-09] MEDS: LISINOPRIL *2.5 MG* TAB PO SCH (08:15)
[2016-08-09] MEDS: COSOPT OCUMETER PLUS 10ML (DORZOLAMIDE/TIMOLOL) OU SCH (08:16)
[2016-08-09] MEDS ORDERED: BICA50TA2 PO (09:07)
[2016-08-09] MEDS ORDERED: DEXA2TA PO (09:07)
[2016-08-09] MEDS ORDERED: FOLI1TAB2 PO (09:07)
[2016-08-09] MEDS: ENOXAPARIN 30 MG/0.3 ML SYR (J1650) SC SCH (09:13)
--- NOTE | 2016-08-10 10:36 | DSES ---
DATE OF ADMISSION: 08/03/2016 DATE OF DISCHARGE: 08/09/2016 ATTENDING PHYSICIAN: Dr. Manish Funes PRIMARY CARE PROVIDER: Dr. Melecio Saleh HISTORY OF PRESENT ILLNESS: This is an 85-year-old gentleman who presented to [facility] emergency department for complaints of muscle aches, generalized weakness, decreased interest in eating and decreased oral intake. The patient had recent problems with a mechanical bowel obstruction and was found to have several hernias and was anticipating surgery in the near future. Workup in the emergency room demonstrated concerns for rhabdomyolysis with an elevated CPK of 1799 and elevated alkaline phosphatase of 613. The patient was subsequently admitted for adequate by mouth hydration to ensure adequate renal function as well as further evaluation of his complaints. HOSPITAL COURSE: The patient's myalgias continued to improve with IV hydration and discontinuation of his statin therapy. He was also found to have significant thrombocytopenia with new onset anemia questionably related to rhabdomyolysis; however, hematology consult was placed. Workup demonstrated significantly elevated PSA of 48.1 with an ALP of 661. DEXA scan was obtained and showed positive bone metastasis, wide spread skeletal metastatic disease, ? Prostate malignancy. Further imaging included thoracic, lumbar and cervical spine MRI which showed diffuse pattern of mottled wide spread skeletal metastatic disease, right sided disc herniation at T8-9, and significant disc bulging in the lumbar spine. He does have mild central canal stenosis at L4-5. Moderate degenerative spondylosis along with metastatic disease to cervical, thoracic and lumbar spine. MRI of the brain showed moderate diffuse cerebral atrophy with small vessel microvascular changes, no intracranial lesions or calvarial metastasis appreciated. The patient is status post CT guided pelvic bone biopsy. Pathology is pending. Hematology consult by Dr. Juan Pedraza [place] completed. She recommends dexamethasone as well as Casodex treatment and will followup the patient in the near future to review pathology results and then plan for course of care with patient and his family. The patient underwent physical therapy evaluation today and is deemed appropriate to go home with use of a walker. Rolling walker prescription has been provided. The patient is anxious to go home. His daughters are very attentive and willing to help care for him. Most recent labs show H and H of 9 and 27. CMP shows an AST of 184, alkaline phosphatase of 583, total CK of 1464. Most recent blood pressure 141/92 with a heart rate of 59 and oxygen saturation of 94% on room air. On physical exam: HEENT: Neck is supple, without lymphadenopathy of jugular venous distention. Cardiovascular: Heart rate and rhythm are regular. Pulmonary: Lungs are clear. Abdomen: Soft. Nontender. Bilateral lower extremities are without any edema. Neurologic: He is alert and oriented times three. No visible tremors appreciated. Psychiatric: Affect is appropriate. Conversation is congruent. Patient maintains eye contact well. ASSESSMENT: 1. Rhabdomyolysis. 2. Metastatic disease with an elevated PSA. 3. Anemia. 4. Bilateral inguinal hernia. 5. Thrombocytopenia. 6. Type 2 diabetes. PLAN: The patient will be discharged home. He will followup with his PCP at an already scheduled appointment on 08/27/2016. He will followup with oncology next week as already has been set up. Diet is as tolerated. Activity is as tolerated with rolling walker. MEDICATIONS: - aspirin with dipyridamole 25/200 mg one by mouth twice a day - Lumigan eye drops one drop both eyes at bedtime - Dulcolax daily as needed constipation - ciclopiroxolamina topically twice a day under arms and groin twice per day - dorzolamide timolol eye drops one drop both eyes twice a day - hydrochlorothiazide 12.5 mg daily - lisinopril 2.5 mg one daily - Casodex 50 mg daily - dexamethasone 2 mg by mouth twice a day (this will be tapered by oncology) - folic acid 1 mg by mouth daily The patient is discharged in stable and satisfactory condition with no further questions at the time of discharge.
== END 2016-08-09 12:24 | disposition home health service (06) | DRG 478 ==
LOC: EDBD 02:09 → M ED 03:30 → M ED INP 08:43 → M MSPAV 10:22
PROVIDERS: ADMIT Family Medicine; ATTEND Family Medicine
PROC: 0QB23ZX Excision of Right Pelvic Bone, Percutaneous Approach, Diagnostic (ICD-10-PCS; principal; 2016-08-08)
DX: M62.82 Rhabdomyolysis (principal); C79.51 Secondary malignant neoplasm of bone; C61 Malignant neoplasm of prostate; T46.6X5A Adverse effect of antihyperlipidemic and antiarteriosclerotic drugs, initial encounter; D69.6 Thrombocytopenia, unspecified; D64.9 Anemia, unspecified; R19.7 Diarrhea, unspecified; Z66 Do not resuscitate; E83.42 Hypomagnesemia; G89.3 Neoplasm related pain (acute) (chronic); E11.9 Type 2 diabetes mellitus without complications; K40.20 Bilateral inguinal hernia, without obstruction or gangrene, not specified as recurrent; Z79.899 Other long term (current) drug therapy; Z86.73 Personal history of transient ischemic attack (TIA), and cerebral infarction without residual deficits; Z90.49 Acquired absence of other specified parts of digestive tract; Z88.2 Allergy status to sulfonamides; Z87.891 Personal history of nicotine dependence

== ENCOUNTER → 2016-08-15 | Outpatient (REF) | payer MEDICARE, OTHER ==
[~2016-08-15] MED LIST changes: +BICA50TA2 PO; +DEXA2TA PO; +FOLI1TAB2 PO
== END ==
LOC: M LAB REF 13:41
PROVIDERS: ATTEND Internal Medicine Medical Oncology
DX: C79.51 Secondary malignant neoplasm of bone (principal)

== ENCOUNTER → 2016-09-03 | Outpatient (REF) | payer MEDICARE, OTHER ==
[2016-09-03 19:57] LABS: MEAN CORPUSCULAR HEMOGLOBIN 30.6 pg (27.0-33.0); MEAN CORPUSCULAR HGB CONC 34.3 g/dl (32.0-36.5); MEAN CORPUSCULAR VOLUME 89.2 fl (80.0-96.0); WHITE BLOOD COUNT 4.8 K/mm3 (4.0-10.0)
[2016-09-03 20:09] LABS: ALBUMIN 3.4 GM/DL (3.2-5.2); ALKALINE PHOSPHATASE 901 U/L (45-117); ALT/SGPT 14 U/L (12-78); ANION GAP 10 MEQ/L (8-16); AST/SGOT 26 U/L (15-37); BILIRUBIN,TOTAL 1.1 MG/DL (0.2-1.0); BLOOD UREA NITROGEN 18 MG/DL (7-18); CALCIUM LEVEL 8.8 MG/DL (8.8-10.2); CARBON DIOXIDE LEVEL 28 MEQ/L (21-32); CHLORIDE LEVEL 99 MEQ/L (98-107); CREATININE FOR GFR 0.95 MG/DL (0.70-1.30); GLOMERULAR FILTRATION RATE > 60.0 (>35); GLUCOSE, FASTING 176 MG/DL (83-110); POTASSIUM SERUM 4.1 MEQ/L (3.5-5.1); SODIUM LEVEL 137 MEQ/L (136-145); TOTAL PROTEIN 6.5 GM/DL (6.4-8.2)
== END ==
LOC: M SFHCADAM 13:26
PROVIDERS: ATTEND Family Medicine
DX: J20.9 Acute bronchitis, unspecified (principal); M62.82 Rhabdomyolysis; I11.9 Hypertensive heart disease without heart failure

== ENCOUNTER → 2016-09-03 | Outpatient (CLI) | payer MEDICARE, OTHER ==
--- NOTE | 2016-09-03 14:26 | REP ---
Chest two views HISTORY: Bronchitis Comparison: 07/07/2009 The lungs are clear. The heart is normal in size. The pulmonary vasculature is normal in appearance. Degenerative change is present in the thoracic spine. There is scoliosis convex to the right. IMPRESSION: No acute disease. Signed by Dave Nazario MD 09/03/2016 02:18 P
== END ==
LOC: M ADAMS 13:36
PROVIDERS: ATTEND Family Medicine
DX: J20.9 Acute bronchitis, unspecified (principal); M62.82 Rhabdomyolysis; I11.9 Hypertensive heart disease without heart failure
CPT/HCPCS: 71020; 80053; 82550; 85027; G0463

== ENCOUNTER → 2016-09-19 | Outpatient (REF) | payer MEDICARE, OTHER | LOC: M LAB REF 13:11 | PROVIDERS: ATTEND Internal Medicine Medical Oncology | DX: C61 Malignant neoplasm of prostate (principal) ==

== ENCOUNTER → 2016-10-17 | Outpatient (REF) | payer MEDICARE, OTHER ==
[~2016-10-17] MED LIST changes: -FOLI1TAB2 PO; +FOLI1TAB4 PO
== END ==
LOC: M LAB REF 13:22
PROVIDERS: ATTEND Internal Medicine Medical Oncology
DX: C61 Malignant neoplasm of prostate (principal)

== ENCOUNTER → 2016-11-18 | Outpatient (CLI) | payer MEDICARE, OTHER ==
[2016-11-18 09:17] LABS: MEAN CORPUSCULAR HGB CONC 33.7 g/dl (32.0-36.5); MEAN CORPUSCULAR VOLUME 88.9 fl (80.0-96.0); RED CELL DISTRIBUTION WIDTH 14.8 % (11.5-14.5); WHITE BLOOD COUNT 4.3 K/mm3 (4.0-10.0)
[2016-11-18 09:51] LABS: ALBUMIN 3.5 GM/DL (3.2-5.2); ALBUMIN/GLOBULIN RATIO 1.13 (1.00-1.93); ALKALINE PHOSPHATASE 326 U/L (45-117); ALT/SGPT 12 U/L (12-78); ANION GAP 10 MEQ/L (8-16); AST/SGOT 35 U/L (15-37); BILIRUBIN,TOTAL 0.3 MG/DL (0.2-1.0); BLOOD UREA NITROGEN 21 MG/DL (7-18); CALCIUM LEVEL 7.9 MG/DL (8.8-10.2); CARBON DIOXIDE LEVEL 24 MEQ/L (21-32); CHLORIDE LEVEL 109 MEQ/L (98-107); CHOLESTEROL LEVEL 191 MG/DL (<200); CREATININE FOR GFR 0.79 MG/DL (0.70-1.30); GLOMERULAR FILTRATION RATE > 60.0 (>35); GLUCOSE, FASTING 148 MG/DL (83-110); POTASSIUM SERUM 4.6 MEQ/L (3.5-5.1); SODIUM LEVEL 143 MEQ/L (136-145); TOTAL PROTEIN 6.6 GM/DL (6.4-8.2); TRIGLYCERIDES LEVEL 108 MG/DL (<150)
== END ==
LOC: M WUC 08:18
PROVIDERS: ATTEND Family Medicine
DX: D64.89 Other specified anemias (principal); I11.9 Hypertensive heart disease without heart failure; E11.9 Type 2 diabetes mellitus without complications; E78.2 Mixed hyperlipidemia

== ENCOUNTER → 2016-11-25 | Outpatient (REF) | payer MEDICARE, OTHER | LOC: M LAB REF 12:43 | PROVIDERS: ATTEND Internal Medicine Medical Oncology | DX: C61 Malignant neoplasm of prostate (principal) ==

== ENCOUNTER → 2016-12-23 | Outpatient (REF) | payer MEDICARE, OTHER | LOC: M LAB REF 12:36 | PROVIDERS: ATTEND Internal Medicine Medical Oncology | DX: C61 Malignant neoplasm of prostate (principal) ==

== ENCOUNTER → 2017-01-16 | Outpatient (CLI) | payer MEDICARE, BC, OTHER ==
--- NOTE | 2017-01-16 14:03 | REP ---
WHOLE BODY BONE SCAN: Following the intravenous administration of 21.8 millicuries technetium 99m MDP, the patient's whole body is imaged in the anterior and posterior projections. Additional oblique images of the thoracic and pelvic regions are performed as well as lateral views of the calvarium and knees. Heterogeneous increased uptake is seen throughout the axial and appendicular skeleton unchanged since the prior exam. Findings are compatible with diffuse skeletal metastatic disease. Both humeri are diffusely involved. There is involvement of the calvarium, the entire spine, bilateral ribs, sternum, all of the pelvic bones and the bilateral femurs. The proximal tibias are also involved as are the proximal fibulas. IMPRESSION: No significant change in scintigraphic pattern of widespread skeletal metastases involving the axial and appendicular skeleton. Signed by Danny Thornton MD 01/16/2017 05:36 P
== END ==
LOC: M RAD 09:34
PROVIDERS: ATTEND Internal Medicine Medical Oncology
DX: C61 Malignant neoplasm of prostate (principal)
CPT/HCPCS: 78306; A9503

== ENCOUNTER → 2017-01-20 | Outpatient (REF) | payer MEDICARE, OTHER | LOC: M LAB REF 12:51 | PROVIDERS: ATTEND Internal Medicine Medical Oncology | DX: C61 Malignant neoplasm of prostate (principal) | CPT/HCPCS: 84153; G0463 ==

== ENCOUNTER → 2017-01-22 | Outpatient (REF) | payer MEDICARE, BC, OTHER | LOC: M LAB REF 12:20 | PROVIDERS: ATTEND Internal Medicine Medical Oncology | DX: D64.9 Anemia, unspecified (principal) ==

== ENCOUNTER → 2017-02-17 | Outpatient (REF) | payer MEDICARE, BC, OTHER | LOC: M LAB REF 11:15 | PROVIDERS: ATTEND Internal Medicine Medical Oncology | DX: C61 Malignant neoplasm of prostate (principal) ==

== ENCOUNTER → 2017-02-27 | Outpatient (REF) | payer MEDICARE, OTHER | LOC: M LAB REF 13:40 | PROVIDERS: ATTEND Internal Medicine Medical Oncology | DX: C61 Malignant neoplasm of prostate (principal) ==

== ENCOUNTER → 2017-03-12 | Outpatient (REF) | payer MEDICARE, OTHER ==
[2017-03-12 18:02] LABS: MEAN CORPUSCULAR HEMOGLOBIN 29.6 pg (27.0-33.0); MEAN CORPUSCULAR HGB CONC 32.6 g/dl (32.0-36.5); MEAN CORPUSCULAR VOLUME 90.7 fl (80.0-96.0); RED CELL DISTRIBUTION WIDTH 17.8 % (11.5-14.5)
[2017-03-12 18:46] LABS: ADD MANUAL DIFFER YES; DIFF SLIDE NUMBER 274; LEFT SHIFT POS FLAG; PLATELET COUNT, AUTOMATED 72 10^3/uL (150-450); POS COUNT POS FLAG; POSITIVE MORPH POS FLAG
[2017-03-12 18:49] LABS: IMMATURE PLATELET FRACTION % 2.4 % (0.0-10.9)
[2017-03-12 19:06] LABS: BANDS 6 % (< 11); BLAST CELLS 1 % (0-0)
[2017-03-12 19:07] LABS: ANISOCYTOSIS 2+; POLYCHROMASIA 1+
== END ==
LOC: M LAB REF 17:27
PROVIDERS: ATTEND Internal Medicine Medical Oncology
DX: C61 Malignant neoplasm of prostate (principal)

== ENCOUNTER 2017-03-13 12:31 | Outpatient (CLI) | payer MEDICARE, BC, OTHER ==
[~2017-03-13] VITALS: Ht 170.2 cm; Wt 82.7 kg
[~2017-03-13 12:31] MED LIST changes: +ACETAMINOPHEN TAB 650MG DOSE (2X325MG) PO SCH; +diphenhydrAMINE 25 MG CAP PO SCH
[2017-03-13 12:45] VITALS: BP 100/59
== END 2017-03-13 21:33 | disposition home or self-care (01) ==
LOC: M OPCLI4PR 12:31 → M MS4PR 12:35 → M OPCLI4PR 21:33
PROVIDERS: ATTEND Internal Medicine Medical Oncology
DX: D64.9 Anemia, unspecified (principal); Z79.82 Long term (current) use of aspirin; Z79.899 Other long term (current) drug therapy; Z88.8 Allergy status to other drugs, medicaments and biological substances; Z88.2 Allergy status to sulfonamides
CPT/HCPCS: 36415; 36430; 86850; 86900; 86901; 86920; P9016

== ENCOUNTER 2017-03-17 09:18 | Emergency (ER) | payer MEDICARE, BC, OTHER ==
[~2017-03-17 09:18] MED LIST changes: -ACETAMINOPHEN TAB 650MG DOSE (2X325MG) PO SCH; -diphenhydrAMINE 25 MG CAP PO SCH
--- NOTE | 2017-03-17 10:28 | REP ---
EMERGENCY NONCONTRAST BRAIN CT: HISTORY: Trauma. Comparison is made with MR imaging of the brain from August 06, 2016. The patient has a history of metastatic prostate carcinoma. CT FINDINGS: Bone window settings show no evidence of skull fracture or bony destructive lesion. There is a right frontal scalp hematoma. Vascular calcification is noted in the distal carotid arteries bilaterally. The visualized paranasal sinuses are clear. No intraorbital abnormality is seen. On soft tissue window settings, there is diffuse moderate cerebral atrophy which is unchanged. There is no evidence of intracranial hemorrhage. No extra-axial fluid collection is seen. No infarct, mass, or midline shift is seen. IMPRESSION: Right frontal scalp hematoma. No skull fracture or intracranial lesion. Diffuse atrophy and vascular calcification again noted. Signed by Michael Santos MD 03/17/2017 04:09 P
--- NOTE | 2017-03-17 10:30 | REP ---
CT cervical spine without contrast: History: Trauma. History of metastatic prostate carcinoma. CT technique: Helical scanning is acquired. 2 mm axial slices are formatted. Multiplanar re-formation images are included in the coronal and sagittal imaging plane. CT findings: There is a diffuse sclerotic pattern of skeletal metastatic disease throughout the cervical spine elements with anterior and posterior involvement. The skull base appears intact. There is no evidence of cervical spine element fracture or collapse. There is no evidence of intraspinal or paraspinal hematoma. Degenerative spondylosis changes are seen with degenerative disc changes most pronounced at C5-6 and osteoarthritic facet hypertrophy most pronounced on the left at C2-3 and less pronounced bilaterally in the more distal cervical segments. There is some vascular calcification in the left carotid artery. No other extraspinal abnormality. Impression: 1. Diffuse widespread skeletal sclerotic metastatic disease throughout the cervical spine elements. Degenerative spondylosis changes are noted as well. 2. No evidence of fracture or other traumatic abnormality. Signed by Michael Santos MD 03/17/2017 04:09 P
[2017-03-17 10:50] LABS: MEAN CORPUSCULAR HEMOGLOBIN 29.8 pg (27.0-33.0); MEAN CORPUSCULAR HGB CONC 32.6 g/dl (32.0-36.5); MEAN CORPUSCULAR VOLUME 91.4 fl (80.0-96.0); RED CELL DISTRIBUTION WIDTH 17.5 % (11.5-14.5); WHITE BLOOD COUNT 12.5 10^3/uL (4.0-10.0)
[2017-03-17 10:51] LABS: PLATELET COUNT, AUTOMATED 67 10^3/uL (150-450)
[2017-03-17 10:52] LABS: IMMATURE PLATELET FRACTION % 1.3 % (0.0-10.9)
[2017-03-17 11:12] VITALS: BP 122/89
[2017-03-17 11:21] LABS: ALBUMIN 3.4 GM/DL (3.2-5.2); ALBUMIN/GLOBULIN RATIO 1.13 (1.00-1.93); ALKALINE PHOSPHATASE 204 U/L (45-117); ALT/SGPT 13 U/L (12-78); ANION GAP 8 MEQ/L (8-16); AST/SGOT 16 U/L (7-37); BILIRUBIN,TOTAL 0.6 MG/DL (0.2-1.0); BLOOD UREA NITROGEN 29 MG/DL (7-18); CALCIUM LEVEL 8.6 MG/DL (8.8-10.2); CARBON DIOXIDE LEVEL 25 MEQ/L (21-32); CHLORIDE LEVEL 103 MEQ/L (98-107); CREATININE FOR GFR 0.82 MG/DL (0.70-1.30); GLOMERULAR FILTRATION RATE > 60.0 (>35); GLUCOSE, FASTING 160 MG/DL (83-110); POTASSIUM SERUM 4.3 MEQ/L (3.5-5.1); SODIUM LEVEL 136 MEQ/L (136-145); TOTAL PROTEIN 6.4 GM/DL (6.4-8.2)
== END 2017-03-17 11:16 | disposition home or self-care (01) ==
LOC: M ED 09:18 → EDBD 09:18 → M ED 11:16
DX: S00.03XA Contusion of scalp, initial encounter (principal); W01.0XXA Fall on same level from slipping, tripping and stumbling without subsequent striking against object, initial encounter; Y92.89 Other specified places as the place of occurrence of the external cause; Y93.89 Activity, other specified; Y99.8 Other external cause status; C79.51 Secondary malignant neoplasm of bone; E11.9 Type 2 diabetes mellitus without complications; C61 Malignant neoplasm of prostate; Z79.899 Other long term (current) drug therapy; Z79.82 Long term (current) use of aspirin; Z88.2 Allergy status to sulfonamides; Z88.8 Allergy status to other drugs, medicaments and biological substances

== ENCOUNTER → 2017-03-20 | Outpatient (REF) | payer MEDICARE, OTHER | LOC: M LAB REF 16:29 | PROVIDERS: ATTEND Internal Medicine Medical Oncology | DX: C61 Malignant neoplasm of prostate (principal) ==

== ENCOUNTER 2017-04-10 18:50 | Inpatient (IN) | payer MEDICARE, BC, OTHER ==
[2017-04-10 19:42] LABS: HEMATOCRIT 26.5 % (42.0-52.0); MEAN CORPUSCULAR HEMOGLOBIN 30.8 pg (27.0-33.0); MEAN CORPUSCULAR VOLUME 90.8 fl (80.0-96.0); RED BLOOD COUNT 2.92 10^6/uL (4.30-6.10); RED CELL DISTRIBUTION WIDTH 16.6 % (11.5-14.5); WHITE BLOOD COUNT 12.5 10^3/uL (4.0-10.0)
[2017-04-10 19:44] LABS: PLATELET COUNT, AUTOMATED 94 10^3/uL (150-450); POS COUNT POS FLAG; POSITIVE MORPH POS FLAG
[2017-04-10 19:45] LABS: ADD MANUAL DIFFER YES; DIFF SLIDE NUMBER 366; IMMATURE PLATELET FRACTION % 2.1 % (0.0-10.9)
[2017-04-10 19:53] LABS: INR 0.98; PROTHROMBIN TIME 13.1 SECONDS (12.4-14.5)
[2017-04-10 20:09] LABS: BANDS 7 % (< 11); BASOPHILS 1 % (0-4); LYMPHOCYTES 7 % (16-52); METAMYELOCYTES 1 % (0-0); MONOCYTES 3 % (0-8); NEUTROPHILS 79 % (35-75); PLATELET ESTIMATE DECREASED (NORMAL); PROMYELOCYTES 2 % (0-0)
[2017-04-10 20:10] LABS: ANISOCYTOSIS 1+; POLYCHROMASIA 1+
[2017-04-10 20:21] LABS: ALBUMIN 3.9 GM/DL (3.2-5.2); ALBUMIN/GLOBULIN RATIO 1.26 (1.00-1.93); ALKALINE PHOSPHATASE 338 U/L (45-117); ALT/SGPT 15 U/L (12-78); ANION GAP 10 MEQ/L (8-16); AST/SGOT 9 U/L (7-37); BILIRUBIN,DIRECT 0.1 MG/DL (0.0-0.2); BILIRUBIN,TOTAL 0.5 MG/DL (0.2-1.0); BLOOD UREA NITROGEN 37 MG/DL (7-18); CALCIUM LEVEL 8.5 MG/DL (8.8-10.2); CARBON DIOXIDE LEVEL 24 MEQ/L (21-32); CHLORIDE LEVEL 101 MEQ/L (98-107); CREATININE FOR GFR 1.06 MG/DL (0.70-1.30); GLOMERULAR FILTRATION RATE > 60.0 (>35); GLUCOSE, FASTING 231 MG/DL (83-110); LIPASE 46 U/L (73-393); POTASSIUM SERUM 4.4 MEQ/L (3.5-5.1); SODIUM LEVEL 135 MEQ/L (136-145)
[2017-04-10] MEDS: NS 1,000 ML IV (20:35)
[2017-04-10] MEDS: MORPHINE 4 MG/ML 1ML SYRINGE IV (20:35)
[2017-04-10] MEDS: ONDANSETRON 4MG/2ML VIAL (J2405) IV (20:36)
[2017-04-10] MEDS: GASTROGRAFIN SOLUTION 30ML PO (20:36)
[2017-04-10] MEDS: GASTROGRAFIN SOLUTION 30ML (Q9963) PO (21:10)
[2017-04-10] MEDS ORDERED: ISOVUE-370 76% 100ML VIAL (Q9967) As Ordered (22:03)
[2017-04-11] MEDS ORDERED: ONDANSETRON 4MG/2ML VIAL (J2405) IV (00:15)
[2017-04-11] MEDS ORDERED: ACETAMINOPHEN TAB 650MG DOSE (2X325MG) PO (00:15)
[2017-04-11] MEDS ORDERED: MORPHINE 4 MG/ML 1ML SYRINGE IV (00:15)
[2017-04-11] MEDS ORDERED: NORCO, ANEXSIA 5/325MG TABLET (HYDROcodone/ACETAMINOPHEN) PO ×2 (00:15)
[2017-04-11] MEDS: LR 1,000 ML IV ×2 (02:19→09:46)
[2017-04-11] MEDS: NS 1,000 ML IV (02:28)
[2017-04-11] MEDS: PANTOPRAZOLE 40MG INJ (PROTONIX) (C9113) IV (09:46)
[2017-04-11] MEDS: SENOKOT S TAB PO ×2 (09:46→20:12)
[2017-04-11] MEDS: BICALUTAMIDE 50 MG TAB PO (09:47)
[2017-04-11] MEDS: LISINOPRIL *2.5 MG* TAB PO (09:47)
[2017-04-11] MEDS: ASCORBIC ACID 250 MG TAB PO (09:47)
[2017-04-11] MEDS: FOLIC ACID 1 MG TAB PO (09:47)
[2017-04-11] MEDS: VITAMIN D 1,000 INTERNATIONAL UNITS TABLET PO (09:47)
[2017-04-11] MEDS ORDERED: SLF 3 ML SYR IV (14:30)
[2017-04-11] MEDS: SLF 3 ML SYR IV (20:12)
[2017-04-12] MEDS: SLF 3 ML SYR IV ×2 (06:00→14:00)
[2017-04-12] MEDS: FOLIC ACID 1 MG TAB PO (09:47)
[2017-04-12] MEDS: PANTOPRAZOLE 40MG INJ (PROTONIX) (C9113) IV (09:47)
[2017-04-12] MEDS: LISINOPRIL *2.5 MG* TAB PO (09:47)
[2017-04-12] MEDS: SENOKOT S TAB PO (09:48)
[2017-04-12] MEDS: ASCORBIC ACID 250 MG TAB PO (09:48)
[2017-04-12] MEDS: VITAMIN D 1,000 INTERNATIONAL UNITS TABLET PO (09:48)
[2017-04-12] MEDS: BICALUTAMIDE 50 MG TAB PO (09:48)
== END 2017-04-12 16:40 | disposition home or self-care (01) | DRG 389 ==
LOC: M ED INP 04-11 00:12 → M PCU 04-11 06:43 → M ED 18:50
DX: K56.609 Unspecified intestinal obstruction, unspecified as to partial versus complete obstruction (principal); C79.51 Secondary malignant neoplasm of bone; K43.2 Incisional hernia without obstruction or gangrene; C61 Malignant neoplasm of prostate; E11.9 Type 2 diabetes mellitus without complications; I10 Essential (primary) hypertension; Z92.21 Personal history of antineoplastic chemotherapy; Z90.49 Acquired absence of other specified parts of digestive tract; Z79.899 Other long term (current) drug therapy; Z88.2 Allergy status to sulfonamides; Z88.8 Allergy status to other drugs, medicaments and biological substances

== ENCOUNTER → 2017-04-14 | Outpatient (REF) | payer MEDICARE, BC, OTHER ==
[2017-04-15 10:21] LABS: IMMEDIATE SPIN CROSSMATCH 1 2
== END ==
LOC: M LAB REF 17:04
DX: D64.9 Anemia, unspecified (principal)
CPT/HCPCS: 86900

== ENCOUNTER 2017-04-15 09:42 | Outpatient (CLI) | payer MEDICARE, BC, OTHER ==
[2017-04-15] MEDS: diphenhydrAMINE 25 MG CAP PO (10:11)
[2017-04-15] MEDS: ACETAMINOPHEN TAB 650MG DOSE (2X325MG) PO (10:11)
== END 2017-04-15 14:45 | disposition home or self-care (01) ==
LOC: M INFU 09:42
DX: D64.9 Anemia, unspecified (principal); Z88.8 Allergy status to other drugs, medicaments and biological substances; Z88.2 Allergy status to sulfonamides; Z79.82 Long term (current) use of aspirin; Z79.899 Other long term (current) drug therapy
CPT/HCPCS: 36430

== ENCOUNTER → 2017-04-24 | Outpatient (REF) | payer MEDICARE, OTHER | LOC: M LAB REF 16:36 | DX: C61 Malignant neoplasm of prostate (principal) | CPT/HCPCS: 84153 ==

== ENCOUNTER → 2017-05-13 | Outpatient (CLI) | payer MEDICARE, OTHER ==
[2017-05-13 09:14] LABS: HEMATOCRIT 29.8 % (42.0-52.0); HEMOGLOBIN 9.8 g/dl (14.0-18.0); MEAN CORPUSCULAR HEMOGLOBIN 30.8 pg (27.0-33.0); MEAN CORPUSCULAR HGB CONC 32.9 g/dl (32.0-36.5); MEAN CORPUSCULAR VOLUME 93.7 fl (80.0-96.0); RED BLOOD COUNT 3.18 10^6/uL (4.30-6.10); RED CELL DISTRIBUTION WIDTH 17.2 % (11.5-14.5); WHITE BLOOD COUNT 12.6 10^3/uL (4.0-10.0)
[2017-05-13 09:18] LABS: PLATELET COUNT, AUTOMATED 88 10^3/uL (150-450)
[2017-05-13 09:19] LABS: IMMATURE PLATELET FRACTION % 1.3 % (0.0-10.9); PLATELET F 95
[2017-05-13 09:34] LABS: ALBUMIN 3.9 GM/DL (3.2-5.2); ALBUMIN/GLOBULIN RATIO 1.39 (1.00-1.93); ALKALINE PHOSPHATASE 276 U/L (45-117); ALT/SGPT 11 U/L (12-78); ANION GAP 9 MEQ/L (8-16); AST/SGOT 8 U/L (7-37); BILIRUBIN,TOTAL 0.3 MG/DL (0.2-1.0); BLOOD UREA NITROGEN 35 MG/DL (7-18); CALCIUM LEVEL 8.7 MG/DL (8.8-10.2); CARBON DIOXIDE LEVEL 27 MEQ/L (21-32); CHLORIDE LEVEL 103 MEQ/L (98-107); CHOLESTEROL LEVEL 157 MG/DL (<200); CHOLESTEROL RISK RATIO 2.661 (<5); CREATININE FOR GFR 0.87 MG/DL (0.70-1.30); GLOMERULAR FILTRATION RATE > 60.0 (>35); GLUCOSE, FASTING 171 MG/DL (70-100); HDL CHOLESTEROL 59 MG/DL (>40); LDL CHOLESTEROL 70.2 MG/DL (<100); NON-HDL-C 98 MG/DL; POTASSIUM SERUM 4.2 MEQ/L (3.5-5.1); SODIUM LEVEL 139 MEQ/L (136-145); TOTAL PROTEIN 6.7 GM/DL (6.4-8.2); TRIGLYCERIDES LEVEL 139 MG/DL (<150)
[2017-05-13 09:38] LABS: ESTIMATED AVERAGE GLUCOSE 194 MG/DL (60-110); HEMOGLOBIN A1c 8.4 %
== END ==
LOC: M WUC 08:05
DX: Z86.73 Personal history of transient ischemic attack (TIA), and cerebral infarction without residual deficits (principal); E11.9 Type 2 diabetes mellitus without complications
CPT/HCPCS: 80053

== ENCOUNTER → 2017-05-15 | Outpatient (REF) | payer MEDICARE, OTHER | LOC: M LAB REF 17:05 | DX: C61 Malignant neoplasm of prostate (principal) | CPT/HCPCS: 84153 ==

== ENCOUNTER → 2017-05-23 | Outpatient (REF) | payer MEDICARE, OTHER ==
[2017-05-23 17:23] LABS: HEMATOCRIT 24.9 % (42.0-52.0); HEMOGLOBIN 8.4 g/dl (14.0-18.0); MEAN CORPUSCULAR HEMOGLOBIN 31.9 pg (27.0-33.0); MEAN CORPUSCULAR HGB CONC 33.7 g/dl (32.0-36.5); MEAN CORPUSCULAR VOLUME 94.7 fl (80.0-96.0); PLATELET COUNT, AUTOMATED 125 10^3/uL (150-450); RED BLOOD COUNT 2.63 10^6/uL (4.30-6.10); RED CELL DISTRIBUTION WIDTH 17.3 % (11.5-14.5); WHITE BLOOD COUNT 20.4 10^3/uL (4.0-10.0)
[2017-05-23 17:51] LABS: ADD MANUAL DIFFER YES; DIFF SLIDE NUMBER 243; POS COUNT POS FLAG; POSITIVE MORPH POS FLAG
[2017-05-23 19:32] LABS: BANDS 4 % (< 11); BASOPHILS 3 % (0-4); LYMPHOCYTES 2 % (16-52); MONOCYTES 6 % (0-8); NEUTROPHILS 85 % (35-75); TOXIC GRANULATION 1+
[2017-05-23 19:33] LABS: ANISOCYTOSIS 1+
[2017-05-23 19:34] LABS: TOXIC VACUOLATION 1+
[2017-05-23 19:37] LABS: PLATELET ESTIMATE DECREASED (NORMAL)
== END ==
LOC: M LAB REF 16:58
DX: C79.51 Secondary malignant neoplasm of bone (principal)
CPT/HCPCS: 85025

== ENCOUNTER 2017-05-29 06:56 | Outpatient (CLI) | payer MEDICARE, BC, OTHER ==
[2017-05-29] MEDS: ACETAMINOPHEN TAB 650MG DOSE (2X325MG) PO (08:21)
[2017-05-29] MEDS: diphenhydrAMINE 25 MG CAP PO (08:22)
[2017-05-29 08:24] LABS: IMMEDIATE SPIN CROSSMATCH 1 1
[2017-05-29] MEDS ORDERED: SODIUM CHLORIDE 0.9% INJ 10 ML SYR IV (09:00)
== END 2017-05-29 10:45 | disposition home or self-care (01) ==
LOC: M INFU 06:56
DX: D64.81 Anemia due to antineoplastic chemotherapy (principal); C61 Malignant neoplasm of prostate; K21.9 Gastro-esophageal reflux disease without esophagitis; E11.9 Type 2 diabetes mellitus without complications; Z79.82 Long term (current) use of aspirin; Z79.899 Other long term (current) drug therapy; Z88.8 Allergy status to other drugs, medicaments and biological substances; Z86.73 Personal history of transient ischemic attack (TIA), and cerebral infarction without residual deficits; Z87.39 Personal history of other diseases of the musculoskeletal system and connective tissue
CPT/HCPCS: 36430

== ENCOUNTER → 2017-06-05 | Outpatient (REF) | payer MEDICARE, OTHER | LOC: M LAB REF 12:56 | DX: C61 Malignant neoplasm of prostate (principal) | CPT/HCPCS: 84153 ==

== ENCOUNTER 2017-06-28 03:59 | Inpatient (IN) | payer MEDICARE, BC, OTHER ==
[2017-06-28 04:41] LABS: BASO % 0.2 % (0.0-1.0); EOS % 0.1 % (0.0-3.0); HEMATOCRIT 30.6 % (42.0-52.0); HEMOGLOBIN 10.2 g/dl (13.5-17.5); IMMATURE GRANULOCYTE % 3.1 % (0-3.0); LYMPH # 0.9 10^3/uL (1.5-4.5); LYMPH % 6.8 % (24.0-44.0); MEAN CORPUSCULAR HEMOGLOBIN 32.1 pg (27.0-33.0); MEAN CORPUSCULAR HGB CONC 33.3 g/dl (32.0-36.5); MEAN CORPUSCULAR VOLUME 96.2 fl (80.0-96.0); MONO # 0.9 10^3/uL (0.0-0.8); MONO % 6.7 % (0.0-5.0); NEUTROPHILS # 10.9 10^3/uL (1.8-7.7); NEUTROPHILS % 83.1 % (36.0-66.0); PLATELET COUNT, AUTOMATED 105 10^3/uL (150-450); RED BLOOD COUNT 3.18 10^6/uL (4.30-6.10); RED CELL DISTRIBUTION WIDTH 17.9 % (11.5-14.5); WHITE BLOOD COUNT 13.1 10^3/uL (4.0-10.0)
[2017-06-28 04:44] LABS: PARTIAL THROMBOPLASTIN TIME 29.7 SECONDS (26.8-37.9)
[2017-06-28] MEDS: ONDANSETRON 4MG/2ML VIAL (J2405) IV (04:45)
[2017-06-28] MEDS: fentaNYL 100 MCG/2 ML INJECTION (J3010) IV (04:45)
[2017-06-28 04:53] LABS: ALBUMIN 3.6 GM/DL (3.2-5.2); ALBUMIN/GLOBULIN RATIO 1.24 (1.00-1.93); ALKALINE PHOSPHATASE 201 U/L (45-117); ALT/SGPT 14 U/L (12-78); ANION GAP 6 MEQ/L (8-16); AST/SGOT 10 U/L (7-37); BILIRUBIN,DIRECT 0.2 MG/DL (0.0-0.2); BILIRUBIN,TOTAL 0.7 MG/DL (0.2-1.0); BLOOD UREA NITROGEN 24 MG/DL (7-18); CARBON DIOXIDE LEVEL 29 MEQ/L (21-32); CHLORIDE LEVEL 101 MEQ/L (98-107); CREATININE FOR GFR 0.91 MG/DL (0.70-1.30); GLOMERULAR FILTRATION RATE > 60.0 (>35); GLUCOSE, FASTING 255 MG/DL (70-100); LIPASE 40 U/L (73-393); POTASSIUM SERUM 4.2 MEQ/L (3.5-5.1); SODIUM LEVEL 136 MEQ/L (136-145); TOTAL PROTEIN 6.5 GM/DL (6.4-8.2)
[2017-06-28 04:54] LABS: LACTIC ACID SEPSIS PROTOCOL 1.7 MMOL/L (0.4-2.0)
[2017-06-28] MEDS ORDERED: ISOVUE-370 76% 100ML VIAL (Q9967) As Ordered (05:08)
[2017-06-28] MEDS ORDERED: ONDANSETRON 4MG/2ML VIAL (J2405) IV (06:45)
[2017-06-28] MEDS ORDERED: MORPHINE 4 MG/ML 1ML VIAL (J2270) IV (06:45)
[2017-06-28] MEDS: LR 1,000 ML IV ×3 (06:57→23:05)
[2017-06-28 07:35] LABS: ESTIMATED AVERAGE GLUCOSE 197 MG/DL (60-110); HEMOGLOBIN A1c 8.5 %
[2017-06-28] MEDS: TIMOLOL MALEATE 0.5% OPHTH SOLN 5 ML OU ×2 (11:15→21:16)
[2017-06-28] MEDS: predniSONE 5 MG TAB PO ×2 (11:15→20:32)
[2017-06-28] MEDS: PANTOPRAZOLE 40MG INJ (PROTONIX) (C9113) IV (11:15)
[2017-06-28] MEDS: HEPARIN SOD (PORCINE) 5000 UNITS/ML VIAL SC ×2 (11:16→20:32)
[2017-06-28] MEDS: VITAMIN D 1,000 INTERNATIONAL UNITS TABLET PO (18:14)
[2017-06-28] MEDS: SENOKOT S TAB PO (20:32)
[2017-06-29 06:24] LABS: HEMATOCRIT 30.4 % (42.0-52.0); HEMOGLOBIN 9.9 g/dl (13.5-17.5); MEAN CORPUSCULAR HEMOGLOBIN 31.8 pg (27.0-33.0); MEAN CORPUSCULAR HGB CONC 32.6 g/dl (32.0-36.5); MEAN CORPUSCULAR VOLUME 97.7 fl (80.0-96.0); PLATELET COUNT, AUTOMATED 103 10^3/uL (150-450); RED BLOOD COUNT 3.11 10^6/uL (4.30-6.10); RED CELL DISTRIBUTION WIDTH 17.7 % (11.5-14.5); WHITE BLOOD COUNT 10.6 10^3/uL (4.0-10.0)
[2017-06-29 06:46] LABS: ALBUMIN 3.3 GM/DL (3.2-5.2); ALBUMIN/GLOBULIN RATIO 1.18 (1.00-1.93); ALKALINE PHOSPHATASE 184 U/L (45-117); ALT/SGPT 12 U/L (12-78); ANION GAP 5 MEQ/L (8-16); AST/SGOT 10 U/L (7-37); BILIRUBIN,TOTAL 0.5 MG/DL (0.2-1.0); BLOOD UREA NITROGEN 16 MG/DL (7-18); CALCIUM LEVEL 7.8 MG/DL (8.8-10.2); CARBON DIOXIDE LEVEL 28 MEQ/L (21-32); CHLORIDE LEVEL 110 MEQ/L (98-107); CREATININE FOR GFR 0.85 MG/DL (0.70-1.30); GLOMERULAR FILTRATION RATE > 60.0 (>35); GLUCOSE, FASTING 138 MG/DL (70-100); MAGNESIUM LEVEL 2.6 MG/DL (1.8-2.4); POTASSIUM SERUM 4.1 MEQ/L (3.5-5.1); SODIUM LEVEL 143 MEQ/L (136-145); TOTAL PROTEIN 6.1 GM/DL (6.4-8.2)
[2017-06-29] MEDS: LR 1,000 ML IV ×2 (10:06→16:05)
[2017-06-29] MEDS: HEPARIN SOD (PORCINE) 5000 UNITS/ML VIAL SC ×2 (10:06→20:33)
[2017-06-29] MEDS: predniSONE 5 MG TAB PO ×2 (10:06→20:32)
[2017-06-29] MEDS: PANTOPRAZOLE 40MG INJ (PROTONIX) (C9113) IV (10:06)
[2017-06-29] MEDS: TIMOLOL MALEATE 0.5% OPHTH SOLN 5 ML OU ×2 (10:06→20:33)
[2017-06-29] MEDS: NYSTATIN 100,000 UNITS/GM TOPICAL PWD 15 GM TOP (17:35)
[2017-06-29] MEDS: VITAMIN D 1,000 INTERNATIONAL UNITS TABLET PO (17:35)
[2017-06-29] MEDS: SENOKOT S TAB PO (20:33)
[2017-06-30 06:05] LABS: HEMATOCRIT 25.6 % (42.0-52.0); HEMOGLOBIN 8.2 g/dl (13.5-17.5); MEAN CORPUSCULAR HEMOGLOBIN 31.8 pg (27.0-33.0); MEAN CORPUSCULAR VOLUME 99.2 fl (80.0-96.0); RED BLOOD COUNT 2.58 10^6/uL (4.30-6.10); RED CELL DISTRIBUTION WIDTH 17.7 % (11.5-14.5); WHITE BLOOD COUNT 6.7 10^3/uL (4.0-10.0)
[2017-06-30 06:13] LABS: PLATELET COUNT, AUTOMATED 84 10^3/uL (150-450)
[2017-06-30 06:14] LABS: IMMATURE PLATELET FRACTION % 0.8 % (0.0-10.9); PLATELET F 84
[2017-06-30 06:24] LABS: ALBUMIN 2.9 GM/DL (3.2-5.2); ALBUMIN/GLOBULIN RATIO 1.04 (1.00-1.93); ALKALINE PHOSPHATASE 151 U/L (45-117); ALT/SGPT 10 U/L (12-78); ANION GAP 4 MEQ/L (8-16); AST/SGOT 7 U/L (7-37); BILIRUBIN,TOTAL 0.4 MG/DL (0.2-1.0); BLOOD UREA NITROGEN 12 MG/DL (7-18); CALCIUM LEVEL 7.8 MG/DL (8.8-10.2); CARBON DIOXIDE LEVEL 27 MEQ/L (21-32); CHLORIDE LEVEL 112 MEQ/L (98-107); CREATININE FOR GFR 0.78 MG/DL (0.70-1.30); GLOMERULAR FILTRATION RATE > 60.0 (>35); GLUCOSE, FASTING 183 MG/DL (70-100); MAGNESIUM LEVEL 2.4 MG/DL (1.8-2.4); POTASSIUM SERUM 4.3 MEQ/L (3.5-5.1); SODIUM LEVEL 143 MEQ/L (136-145); TOTAL PROTEIN 5.7 GM/DL (6.4-8.2)
[2017-06-30] MEDS: predniSONE 5 MG TAB PO (09:02)
[2017-06-30] MEDS: NYSTATIN 100,000 UNITS/GM TOPICAL PWD 15 GM TOP (09:03)
[2017-06-30] MEDS: TIMOLOL MALEATE 0.5% OPHTH SOLN 5 ML OU (09:03)
[2017-06-30] MEDS: HEPARIN SOD (PORCINE) 5000 UNITS/ML VIAL SC (09:03)
[2017-06-30] MEDS: PANTOPRAZOLE 40MG INJ (PROTONIX) (C9113) IV (09:03)
[2017-06-30 12:17] LABS: BASO % 0.1 % (0.0-1.0); EOS % 0.5 % (0.0-3.0); HEMATOCRIT 27.6 % (42.0-52.0); HEMOGLOBIN 9.1 g/dl (13.5-17.5); IMMATURE GRANULOCYTE % 2.7 % (0-3.0); LYMPH % 13.7 % (24.0-44.0); MEAN CORPUSCULAR HEMOGLOBIN 32.2 pg (27.0-33.0); MEAN CORPUSCULAR VOLUME 97.5 fl (80.0-96.0); MONO # 0.5 10^3/uL (0.0-0.8); MONO % 6.9 % (0.0-5.0); NEUTROPHILS # 5.6 10^3/uL (1.8-7.7); NEUTROPHILS % 76.1 % (36.0-66.0); PLATELET COUNT, AUTOMATED 100 10^3/uL (150-450); RED BLOOD COUNT 2.83 10^6/uL (4.30-6.10); RED CELL DISTRIBUTION WIDTH 17.5 % (11.5-14.5); WHITE BLOOD COUNT 7.4 10^3/uL (4.0-10.0)
[2017-06-30] MEDS: VITAMIN D 1,000 INTERNATIONAL UNITS TABLET PO (17:17)
== END 2017-06-30 18:35 | disposition home or self-care (01) | DRG 389 ==
LOC: M ED 03:59 → M ED INP 06:39 → M MSPAV 12:30
DX: K56.51 Intestinal adhesions [bands], with partial obstruction (principal); C79.51 Secondary malignant neoplasm of bone; K43.2 Incisional hernia without obstruction or gangrene; I10 Essential (primary) hypertension; L30.4 Erythema intertrigo; C61 Malignant neoplasm of prostate; D64.9 Anemia, unspecified; E78.5 Hyperlipidemia, unspecified; Z92.21 Personal history of antineoplastic chemotherapy; Z88.2 Allergy status to sulfonamides; Z88.8 Allergy status to other drugs, medicaments and biological substances; Z98.49 Cataract extraction status, unspecified eye; Z90.49 Acquired absence of other specified parts of digestive tract; Z79.52 Long term (current) use of systemic steroids; Z79.899 Other long term (current) drug therapy; Z85.828 Personal history of other malignant neoplasm of skin

== ENCOUNTER 2017-07-21 17:08 | Inpatient (IN) | payer MEDICARE, BC, OTHER ==
[2017-07-21 19:08] LABS: BASO % 0.2 % (0.0-1.0); EOS # 0.1 10^3/uL (0.0-0.50); HEMATOCRIT 29.2 % (42.0-52.0); HEMOGLOBIN 9.8 g/dl (13.5-17.5); IMMATURE GRANULOCYTE % 0.5 % (0-3.0); LYMPH # 0.9 10^3/uL (1.5-4.5); LYMPH % 15.5 % (24.0-44.0); MEAN CORPUSCULAR HGB CONC 33.6 g/dl (32.0-36.5); MEAN CORPUSCULAR VOLUME 95.4 fl (80.0-96.0); MONO # 0.5 10^3/uL (0.0-0.8); MONO % 7.7 % (0.0-5.0); NEUTROPHILS # 4.6 10^3/uL (1.8-7.7); NEUTROPHILS % 75.1 % (36.0-66.0); RED BLOOD COUNT 3.06 10^6/uL (4.30-6.10); RED CELL DISTRIBUTION WIDTH 14.8 % (11.5-14.5); WHITE BLOOD COUNT 6.1 10^3/uL (4.0-10.0)
[2017-07-21] MEDS: fentaNYL 100 MCG/2 ML INJECTION (J3010) IV (19:16)
[2017-07-21] MEDS: ONDANSETRON 4MG/2ML VIAL (J2405) IV (19:16)
[2017-07-21 19:26] LABS: ALBUMIN 3.3 GM/DL (3.2-5.2); ALBUMIN/GLOBULIN RATIO 1.03 (1.00-1.93); ALKALINE PHOSPHATASE 180 U/L (45-117); ALT/SGPT 13 U/L (12-78); ANION GAP 9 MEQ/L (8-16); AST/SGOT 14 U/L (7-37); BILIRUBIN,DIRECT 0.1 MG/DL (0.0-0.2); BILIRUBIN,TOTAL 0.3 MG/DL (0.2-1.0); BLOOD UREA NITROGEN 26 MG/DL (7-18); CARBON DIOXIDE LEVEL 26 MEQ/L (21-32); CHLORIDE LEVEL 109 MEQ/L (98-107); CREATININE FOR GFR 1.05 MG/DL (0.70-1.30); GLOMERULAR FILTRATION RATE > 60.0 (>35); GLUCOSE, FASTING 230 MG/DL (70-100); LIPASE 46 U/L (73-393); POTASSIUM SERUM 4.5 MEQ/L (3.5-5.1); SODIUM LEVEL 144 MEQ/L (136-145); TOTAL PROTEIN 6.5 GM/DL (6.4-8.2)
[2017-07-21] MEDS ORDERED: ISOVUE-370 76% 100ML VIAL (Q9967) As Ordered (19:36)
[2017-07-21 19:39] LABS: PLATELET COUNT, AUTOMATED 92 10^3/uL (150-450)
[2017-07-21 19:39] LABS: LACTIC ACID SEPSIS PROTOCOL 2.1 MMOL/L (0.4-2.0)
[2017-07-21 20:44] LABS: KETONE, URINE AUTO RFX NEGATIVE (NEGATIVE); LEUKOCYTE ESTERASE UR AUTO RFX NEGATIVE (NEGATIVE); NITRITE, URINE AUTO RFX NEGATIVE (NEGATIVE); RBC, URINE AUTO RFX 1 /HPF (0-3); SPECIFIC GRAVITY UR AUTO RFX 1.046 (1.002-1.035); SQUAM EPITHELIAL CELL UR AURFX 0 /HPF (0-6); WBC, URINE AUTO RFX 0 /HPF (0-3)
[2017-07-21] MEDS ORDERED: ONDANSETRON 4 MG TAB (S0181) PO (22:30)
[2017-07-21] MEDS ORDERED: MORPHINE 4 MG/ML 1ML VIAL/SYRINGE (J2270) IV (22:30)
[2017-07-21] MEDS: HEPARIN SOD (PORCINE) 5000 UNITS/ML VIAL SC (22:44)
[2017-07-21] MEDS: NS 1,000 ML IV (22:44)
[2017-07-21] MEDS ORDERED: GLUCOSE 4 GM CHEW TABLET PO (22:45)
[2017-07-21] MEDS ORDERED: GLUCAGON FOR INJ 1 MG VIAL (J1610) SC (22:45)
[2017-07-21] MEDS ORDERED: DEXTROSE 50% 50 ML SYRINGE IV (22:45)
[2017-07-22] MEDS: OXYMETAZOLINE NASAL SPRAY (AFRIN) (00:50)
[2017-07-22] MEDS ORDERED: PILL CRUSHER/CUTTER 1 EACH XX (01:00)
[2017-07-22] MEDS: methylPREDNISolone INJ 40 MG/1 ML VIAL (J2920) IV ×3 (02:07→20:28)
[2017-07-22 02:13] LABS: BEDSIDE GLUCOSE 223 MG/DL (83-110)
[2017-07-22] MEDS: HEPARIN SOD (PORCINE) 5000 UNITS/ML VIAL SC ×2 (06:01→14:00)
[2017-07-22] MEDS: HumaLOG INSULIN (NovoLOG) PER UNIT SC ×5 (06:01→21:00)
[2017-07-22 06:07] LABS: BEDSIDE GLUCOSE 222 MG/DL (83-110)
[2017-07-22 06:49] LABS: HEMATOCRIT 29.3 % (42.0-52.0); HEMOGLOBIN 9.7 g/dl (13.5-17.5); MEAN CORPUSCULAR HEMOGLOBIN 31.1 pg (27.0-33.0); MEAN CORPUSCULAR HGB CONC 33.1 g/dl (32.0-36.5); MEAN CORPUSCULAR VOLUME 93.9 fl (80.0-96.0); RED BLOOD COUNT 3.12 10^6/uL (4.30-6.10); RED CELL DISTRIBUTION WIDTH 14.8 % (11.5-14.5); WHITE BLOOD COUNT 6.6 10^3/uL (4.0-10.0)
[2017-07-22 06:53] LABS: PLATELET COUNT, AUTOMATED 92 10^3/uL (150-450)
[2017-07-22 07:04] LABS: ANION GAP 7 MEQ/L (8-16); BLOOD UREA NITROGEN 28 MG/DL (7-18); CALCIUM LEVEL 8.9 MG/DL (8.8-10.2); CARBON DIOXIDE LEVEL 24 MEQ/L (21-32); CHLORIDE LEVEL 109 MEQ/L (98-107); CREATININE FOR GFR 0.89 MG/DL (0.70-1.30); GLOMERULAR FILTRATION RATE > 60.0 (>35); GLUCOSE, FASTING 209 MG/DL (70-100); POTASSIUM SERUM 4.3 MEQ/L (3.5-5.1); SODIUM LEVEL 140 MEQ/L (136-145)
[2017-07-22] MEDS: NS 1,000 ML IV (10:46)
[2017-07-22 11:44] LABS: BEDSIDE GLUCOSE 175 MG/DL (83-110)
[2017-07-22] MEDS ORDERED: DEXTROSE 50% 50 ML SYRINGE IV (14:00)
[2017-07-22] MEDS ORDERED: GLUCAGON FOR INJ 1 MG VIAL (J1610) SC (14:00)
[2017-07-22] MEDS ORDERED: GLUCOSE 4 GM CHEW TABLET PO (14:00)
[2017-07-22 17:31] LABS: BEDSIDE GLUCOSE 237 MG/DL (83-110)
[2017-07-22 21:08] LABS: BEDSIDE GLUCOSE 193 MG/DL (83-110)
[2017-07-23 07:59] LABS: HEMOGLOBIN 9.9 g/dl (13.5-17.5); MEAN CORPUSCULAR HEMOGLOBIN 31.7 pg (27.0-33.0); MEAN CORPUSCULAR VOLUME 96.2 fl (80.0-96.0); PLATELET COUNT, AUTOMATED 100 10^3/uL (150-450); RED BLOOD COUNT 3.12 10^6/uL (4.30-6.10); RED CELL DISTRIBUTION WIDTH 14.7 % (11.5-14.5); WHITE BLOOD COUNT 3.8 10^3/uL (4.0-10.0)
[2017-07-23 08:23] LABS: ANION GAP 6 MEQ/L (8-16); BLOOD UREA NITROGEN 16 MG/DL (7-18); CALCIUM LEVEL 8.2 MG/DL (8.8-10.2); CARBON DIOXIDE LEVEL 26 MEQ/L (21-32); CHLORIDE LEVEL 111 MEQ/L (98-107); CREATININE FOR GFR 0.79 MG/DL (0.70-1.30); GLOMERULAR FILTRATION RATE > 60.0 (>35); GLUCOSE, FASTING 186 MG/DL (70-100); POTASSIUM SERUM 4.1 MEQ/L (3.5-5.1); SODIUM LEVEL 143 MEQ/L (136-145)
[2017-07-23] MEDS: methylPREDNISolone INJ 40 MG/1 ML VIAL (J2920) IV (08:44)
[2017-07-23] MEDS: HumaLOG INSULIN (NovoLOG) PER UNIT SC ×2 (08:45→12:11)
[2017-07-23 12:16] LABS: BEDSIDE GLUCOSE 261 MG/DL (83-110)
== END 2017-07-23 13:30 | disposition home or self-care (01) | DRG 389 ==
LOC: M MS5PR 07-22 01:13 → M ED 17:08 → M ED INP 23:34
DX: K56.609 Unspecified intestinal obstruction, unspecified as to partial versus complete obstruction (principal); C79.51 Secondary malignant neoplasm of bone; C61 Malignant neoplasm of prostate; E11.9 Type 2 diabetes mellitus without complications; E78.5 Hyperlipidemia, unspecified; K43.9 Ventral hernia without obstruction or gangrene; I10 Essential (primary) hypertension; Z79.52 Long term (current) use of systemic steroids; Z79.899 Other long term (current) drug therapy; Z88.2 Allergy status to sulfonamides; Z88.8 Allergy status to other drugs, medicaments and biological substances; Z92.21 Personal history of antineoplastic chemotherapy; Z85.828 Personal history of other malignant neoplasm of skin; Z90.49 Acquired absence of other specified parts of digestive tract; Z87.891 Personal history of nicotine dependence

== ENCOUNTER → 2017-08-07 | Outpatient (REF) | payer MEDICARE, OTHER | LOC: M LAB REF 16:57 | DX: C61 Malignant neoplasm of prostate (principal); C79.51 Secondary malignant neoplasm of bone; G89.3 Neoplasm related pain (acute) (chronic) | CPT/HCPCS: 84153 ==

== ENCOUNTER 2017-08-15 05:47 | Inpatient (IN) | payer MEDICARE, BC, OTHER ==
[2017-08-15] MEDS: LR 1,000 ML IV ×4 (06:53→21:39)
[2017-08-15 07:00] LABS: BEDSIDE GLUCOSE 225 MG/DL (83-110)
[2017-08-15] MEDS ORDERED: PROPOFOL 200 MG/20 ML VIAL As Ordered ×2 (07:19)
[2017-08-15] MEDS ORDERED: ROCURONIUM BROMIDE 50 MG/5 ML VIAL As Ordered ×6 (07:19→10:59)
[2017-08-15] MEDS ORDERED: fentaNYL 100 MCG/2 ML INJECTION (J3010) As Ordered ×2 (07:19)
[2017-08-15] MEDS ORDERED: MIDAZOLAM INJ 2 MG/2 ML VIAL (J2250) As Ordered ×2 (07:20)
[2017-08-15] MEDS ORDERED: PHENYLephrine HCL 500 MCG/5 ML (100MCG/ML) SYRINGE (J2370) As Ordered ×2 (07:46)
[2017-08-15] MEDS ORDERED: ePHEDrine SULFATE 25 MG/5 ML(5MG/ML) SYRINGE As Ordered ×2 (07:46)
[2017-08-15] MEDS ORDERED: dexameTHASONE 4 MG/ML 1ML VIAL (J1100) As Ordered ×2 (07:55)
[2017-08-15] MEDS ORDERED: HYDROCORTISONE 100 MG/2 ML VIAL (J1720) As Ordered ×2 (07:55)
[2017-08-15] MEDS ORDERED: GLYCOPYRROLATE INJ 0.2 MG/ML 2 ML VIAL As Ordered ×6 (08:44→11:30)
[2017-08-15] MEDS: SENOKOT S TAB PO ×6 (09:00→20:50)
[2017-08-15] MEDS: NYSTATIN 100,000 UNITS/GM TOPICAL PWD 15 GM TOP ×4 (09:00→20:48)
[2017-08-15] MEDS ORDERED: NEOSTIGMINE 10 MG/10 ML VIAL (J2710) As Ordered ×2 (11:30)
[2017-08-15] MEDS ORDERED: HYDROmorphone HCL 2 MG/ML 1ML VIAL (J1170) As Ordered ×2 (12:13)
[2017-08-15] MEDS ORDERED: ACETAMINOPHEN TAB 650MG DOSE (2X325MG) PO ×2 (12:15)
[2017-08-15] MEDS ORDERED: ONDANSETRON 4MG/2ML VIAL (J2405) IV ×4 (12:15→13:00)
[2017-08-15] MEDS: LIDOCAINE 1% SDV INJ 30 ML VIAL As Ordered ×2 (12:17)
[2017-08-15] MEDS: BUPIVACAINE HCL 0.25% 30 ML VIAL As Ordered ×2 (12:18)
[2017-08-15] MEDS ORDERED: fentaNYL 100 MCG/2 ML INJECTION (J3010) IV ×2 (13:00)
[2017-08-15] MEDS: ceFAZolin SOD 1 GM in D5W MINI-BAG PLUS 50 ML IV ×2 (15:49→23:46)
[2017-08-15] MEDS: MORPHINE 4 MG/ML 1ML VIAL/SYRINGE (J2270) IV ×4 (15:56→23:48)
[2017-08-15] MEDS: OMEPRAZOLE 20 MG CAP PO ×2 (16:48)
[2017-08-15] MEDS: ENOXAPARIN 30 MG/0.3 ML SYR (J1650) SC ×2 (16:49)
[2017-08-15] MEDS: predniSONE 5 MG TAB PO ×2 (16:49)
[2017-08-15] MEDS: VITAMIN D 1,000 INTERNATIONAL UNITS TABLET PO ×4 (20:47→20:50)
[2017-08-15] MEDS: NORCO, ANEXSIA 5/325MG TABLET (HYDROcodone/ACETAMINOPHEN) PO ×2 (20:48)
[2017-08-16 05:35] LABS: BASO % 0.2 % (0.0-1.0); EOS % 0.2 % (0.0-3.0); HEMATOCRIT 24.9 % (42.0-52.0); HEMOGLOBIN 8.5 g/dl (13.5-17.5); IMMATURE GRANULOCYTE % 0.3 % (0-3.0); LYMPH # 0.7 10^3/uL (1.5-4.5); MEAN CORPUSCULAR HEMOGLOBIN 30.7 pg (27.0-33.0); MEAN CORPUSCULAR HGB CONC 34.1 g/dl (32.0-36.5); MEAN CORPUSCULAR VOLUME 89.9 fl (80.0-96.0); MONO # 0.7 10^3/uL (0.0-0.8); MONO % 11.1 % (0.0-5.0); NEUTROPHILS # 5.1 10^3/uL (1.8-7.7); NEUTROPHILS % 78.2 % (36.0-66.0); PLATELET COUNT, AUTOMATED 102 10^3/uL (150-450); RED BLOOD COUNT 2.77 10^6/uL (4.30-6.10); RED CELL DISTRIBUTION WIDTH 13.3 % (11.5-14.5); WHITE BLOOD COUNT 6.5 10^3/uL (4.0-10.0)
[2017-08-16] MEDS: MORPHINE 4 MG/ML 1ML VIAL/SYRINGE (J2270) IV ×4 (05:48→16:26)
[2017-08-16 06:04] LABS: ANION GAP 7 MEQ/L (8-16); BLOOD UREA NITROGEN 17 MG/DL (7-18); CALCIUM LEVEL 6.9 MG/DL (8.8-10.2); CARBON DIOXIDE LEVEL 25 MEQ/L (21-32); CHLORIDE LEVEL 108 MEQ/L (98-107); CREATININE FOR GFR 0.82 MG/DL (0.70-1.30); GLOMERULAR FILTRATION RATE > 60.0 (>35); GLUCOSE, FASTING 251 MG/DL (70-100); POTASSIUM SERUM 4.3 MEQ/L (3.5-5.1); SODIUM LEVEL 140 MEQ/L (136-145)
[2017-08-16] MEDS: NYSTATIN 100,000 UNITS/GM TOPICAL PWD 15 GM TOP ×4 (09:00→21:00)
[2017-08-16] MEDS: ENOXAPARIN 30 MG/0.3 ML SYR (J1650) SC ×2 (09:00)
[2017-08-16] MEDS: OMEPRAZOLE 20 MG CAP PO ×2 (09:12)
[2017-08-16] MEDS: predniSONE 5 MG TAB PO ×2 (09:12)
[2017-08-16] MEDS: SENOKOT S TAB PO ×4 (09:12→21:45)
[2017-08-16] MEDS: NORCO, ANEXSIA 5/325MG TABLET (HYDROcodone/ACETAMINOPHEN) PO ×4 (09:13→21:49)
[2017-08-16 12:21] LABS: HEMATOCRIT 25.9 % (42.0-52.0); HEMOGLOBIN 8.7 g/dl (13.5-17.5); MEAN CORPUSCULAR HEMOGLOBIN 30.5 pg (27.0-33.0); MEAN CORPUSCULAR HGB CONC 33.6 g/dl (32.0-36.5); MEAN CORPUSCULAR VOLUME 90.9 fl (80.0-96.0); PLATELET COUNT, AUTOMATED 100 10^3/uL (150-450); RED BLOOD COUNT 2.85 10^6/uL (4.30-6.10); RED CELL DISTRIBUTION WIDTH 13.6 % (11.5-14.5); WHITE BLOOD COUNT 6.3 10^3/uL (4.0-10.0)
[2017-08-16] MEDS: LR 1,000 ML IV ×4 (12:31→21:45)
[2017-08-16] MEDS: VITAMIN D 1,000 INTERNATIONAL UNITS TABLET PO ×2 (21:45)
[2017-08-17] MEDS: NORCO, ANEXSIA 5/325MG TABLET (HYDROcodone/ACETAMINOPHEN) PO ×4 (04:56→21:29)
[2017-08-17] MEDS: SENOKOT S TAB PO ×2 (08:57)
[2017-08-17] MEDS: LR 1,000 ML IV ×2 (08:57)
[2017-08-17] MEDS: predniSONE 5 MG TAB PO ×2 (08:57)
[2017-08-17] MEDS: OMEPRAZOLE 20 MG CAP PO ×2 (08:58)
[2017-08-17] MEDS: KETOROLAC 30 MG/ML VIAL (J1885) IV ×2 (09:00)
[2017-08-17] MEDS: ENOXAPARIN 30 MG/0.3 ML SYR (J1650) SC ×2 (09:00)
[2017-08-17] MEDS: NYSTATIN 100,000 UNITS/GM TOPICAL PWD 15 GM TOP ×4 (09:00→22:13)
[2017-08-17] MEDS: DOCUSATE SODIUM 100 MG CAP PO ×2 (21:00)
[2017-08-17] MEDS: SENNA 8.6 MG TAB (SENOKOT) PO ×2 (21:00)
[2017-08-17] MEDS: VITAMIN D 1,000 INTERNATIONAL UNITS TABLET PO ×2 (21:27)
[2017-08-18] MEDS: DOCUSATE SODIUM 100 MG CAP PO ×4 (09:00→20:41)
[2017-08-18] MEDS: SENNA 8.6 MG TAB (SENOKOT) PO ×4 (09:00→20:42)
[2017-08-18] MEDS: ENOXAPARIN 30 MG/0.3 ML SYR (J1650) SC ×2 (09:00)
[2017-08-18] MEDS: OMEPRAZOLE 20 MG CAP PO ×2 (09:39)
[2017-08-18] MEDS: NYSTATIN 100,000 UNITS/GM TOPICAL PWD 15 GM TOP ×4 (09:39→20:42)
[2017-08-18] MEDS: predniSONE 5 MG TAB PO ×2 (09:39)
[2017-08-18] MEDS: NORCO, ANEXSIA 5/325MG TABLET (HYDROcodone/ACETAMINOPHEN) PO ×2 (09:39)
[2017-08-18] MEDS: KETOROLAC TROMETHAMINE 10 MG TAB PO ×6 (11:38→20:42)
[2017-08-18] MEDS: VITAMIN D 1,000 INTERNATIONAL UNITS TABLET PO ×2 (20:41)
[2017-08-19 06:45] LABS: HEMATOCRIT 27.2 % (42.0-52.0); MEAN CORPUSCULAR HEMOGLOBIN 29.8 pg (27.0-33.0); MEAN CORPUSCULAR HGB CONC 33.1 g/dl (32.0-36.5); MEAN CORPUSCULAR VOLUME 90.1 fl (80.0-96.0); PLATELET COUNT, AUTOMATED 123 10^3/uL (150-450); RED BLOOD COUNT 3.02 10^6/uL (4.30-6.10); RED CELL DISTRIBUTION WIDTH 13.7 % (11.5-14.5); WHITE BLOOD COUNT 4.4 10^3/uL (4.0-10.0)
[2017-08-19 07:06] LABS: ANION GAP 7 MEQ/L (8-16); BLOOD UREA NITROGEN 16 MG/DL (7-18); CALCIUM LEVEL 8.1 MG/DL (8.8-10.2); CARBON DIOXIDE LEVEL 25 MEQ/L (21-32); CHLORIDE LEVEL 106 MEQ/L (98-107); CREATININE FOR GFR 0.91 MG/DL (0.70-1.30); GLOMERULAR FILTRATION RATE > 60.0 (>35); GLUCOSE, FASTING 223 MG/DL (70-100); POTASSIUM SERUM 3.5 MEQ/L (3.5-5.1); SODIUM LEVEL 138 MEQ/L (136-145)
[2017-08-19] MEDS: OMEPRAZOLE 20 MG CAP PO (09:59)
[2017-08-19] MEDS: KETOROLAC TROMETHAMINE 10 MG TAB PO (09:59)
[2017-08-19] MEDS: DOCUSATE SODIUM 100 MG CAP PO (09:59)
[2017-08-19] MEDS: predniSONE 5 MG TAB PO (09:59)
[2017-08-19] MEDS: SENNA 8.6 MG TAB (SENOKOT) PO (09:59)
[2017-08-19] MEDS: NYSTATIN 100,000 UNITS/GM TOPICAL PWD 15 GM TOP (10:01)
[2017-08-19] MEDS: ENOXAPARIN 30 MG/0.3 ML SYR (J1650) SC (10:01)
[2017-11-13] MEDS ORDERED: LEUPROLIDE IM ×2 (09:00)
== END 2017-08-19 13:50 | disposition home health service (06) | DRG 355 ==
LOC: M SDC 05:47 → M MS5PR 14:00 → M SDC 08-18 06:37 → M MS5PR 08-18 06:37 → M SDC 12:15 → M MS5PR 12:16
PROVIDERS: Surgery
PROC: 0WUF4JZ Supplement Abdominal Wall with Synthetic Substitute, Percutaneous Endoscopic Approach (ICD-10-PCS; principal; 2017-08-15 07:30)
PROC: 8E0W4CZ Robotic Assisted Procedure of Trunk Region, Percutaneous Endoscopic Approach (ICD-10-PCS; 2017-08-15 07:30)
DX: K43.0 Incisional hernia with obstruction, without gangrene (principal); G47.30 Sleep apnea, unspecified; I10 Essential (primary) hypertension; E78.5 Hyperlipidemia, unspecified; K21.9 Gastro-esophageal reflux disease without esophagitis; E11.9 Type 2 diabetes mellitus without complications; D64.9 Anemia, unspecified; R53.81 Other malaise; Z79.899 Other long term (current) drug therapy; H40.9 Unspecified glaucoma; Z79.51 Long term (current) use of inhaled steroids; Z79.02 Long term (current) use of antithrombotics/antiplatelets; R73.03 Prediabetes; Z79.82 Long term (current) use of aspirin; Z88.2 Allergy status to sulfonamides; Z88.8 Allergy status to other drugs, medicaments and biological substances; Z87.891 Personal history of nicotine dependence; Z86.73 Personal history of transient ischemic attack (TIA), and cerebral infarction without residual deficits; Z90.49 Acquired absence of other specified parts of digestive tract; Z98.41 Cataract extraction status, right eye; Z98.42 Cataract extraction status, left eye; Z92.21 Personal history of antineoplastic chemotherapy
CPT/HCPCS: 49654

== ENCOUNTER → 2017-09-09 | Outpatient (REF) | payer MEDICARE, BC, OTHER ==
[2017-09-10 13:55] LABS: IMMEDIATE SPIN CROSSMATCH 1 2
== END ==
LOC: M LAB REF 13:08
DX: C61 Malignant neoplasm of prostate (principal); C79.51 Secondary malignant neoplasm of bone; G89.3 Neoplasm related pain (acute) (chronic); D64.9 Anemia, unspecified
CPT/HCPCS: 84153

== ENCOUNTER 2017-09-10 12:05 | Outpatient (CLI) | payer MEDICARE, BC, OTHER ==
[2017-09-10] MEDS: diphenhydrAMINE 25 MG CAP PO (13:13)
[2017-09-10] MEDS: ACETAMINOPHEN TAB 650MG DOSE (2X325MG) PO (13:13)
== END 2017-09-10 21:00 | disposition home or self-care (01) ==
LOC: M OPCLI4PV 21:00 → M MS4PR 12:39
DX: D64.9 Anemia, unspecified (principal); C61 Malignant neoplasm of prostate; Z88.8 Allergy status to other drugs, medicaments and biological substances
CPT/HCPCS: 36430

== ENCOUNTER → 2017-09-11 | Outpatient (CLI) | payer MEDICARE, BC, OTHER | LOC: M RAD 16:12 | DX: R60.0 Localized edema (principal) | CPT/HCPCS: 93971 ==

== ENCOUNTER → 2017-10-03 | Outpatient (CLI) | payer MEDICARE, BC, OTHER | LOC: M RAD 08:06 | DX: C61 Malignant neoplasm of prostate (principal); C79.51 Secondary malignant neoplasm of bone | CPT/HCPCS: 78306 ==

== ENCOUNTER 2018-04-02 13:39 | Inpatient (IN) | payer MEDICARE, BC, OTHER ==
[~2018-04-02] VITALS: Ht 170.2 cm; Wt 90.9 kg
[~2018-04-02 13:39] MED LIST changes: -ASPI1CAP PO; +ASPI1CAP3 PO; -BICA50TA2 PO; +BICA50TA9 PO; +CALC1TAB26 PO; +CALC600T31 PO; +CHEL50TA PO; +CHLO25TA PO; +DEXA4TA PO; +FOLI1TAB11 PO; -FOLI1TAB4 PO; +FOLI400T PO; +KETO10TAB PO; +KETO2SH TOP; -LISI2.5T3 PO; +LISI2.5T5 PO; +LUPR30IN IM; +MELA3TAB21 PO; +MELA5TAB17 PO; +MILK1CAP PO; +MILK500C2 PO; +MS C15TA8 PO; +NIZO2SHA EXT; +NYST1POW9 TOP; +OMEP10CA45 PO; +OMEP20CA3 PO; +OXYC1TAB23 PO; +PRED5TA; +PRED5TA PO; +PRESCAP6 PO; +SENN1TAB2 PO; +SENN8.6T7 PO; +TIMO0.5S39 OU; +TIMOXEOPD OD; +VITA1TAB23 PO; +VITA200016 PO; +VITA500064 PO; +XGEVINJ SC; +ZINC30TA3 PO; +[UNRECOGNIZED DRUG - CODE] SL; +[UNRECOGNIZED DRUG - CODE] SL; +[UNRECOGNIZED DRUG - OTHER] PO
[2018-04-02] MEDS ORDERED: CHLO125TA (14:03)
[2018-04-02] MEDS ORDERED: DECA4TAB PO ×2 (14:15→20:13)
[2018-04-02] MEDS ORDERED: SPIR-10 PO (14:15)
[2018-04-02 14:32] LABS: HEMATOCRIT 20.8 % (42.0-52.0); MEAN CORPUSCULAR HGB CONC 33.7 g/dl (32.0-36.5); MEAN CORPUSCULAR VOLUME 89.3 fl (80.0-96.0); RED BLOOD COUNT 2.33 10^6/uL (4.30-6.10); WHITE BLOOD COUNT 4.5 10^3/uL (4.0-10.0)
[2018-04-02 14:59] LABS: PLATELET COUNT, AUTOMATED 68 10^3/uL (150-450)
[2018-04-02] MEDS ORDERED: PERCOCET 5MG/325MG TAB PO ONE (18:00)
[2018-04-02] MEDS ORDERED: MORPHINE 15 MG SA TAB PO ONE (19:45)
[2018-04-02 19:53] LABS: INR 1.01; PROTHROMBIN TIME 13.4 SECONDS (12.1-14.4)
[2018-04-02 19:54] LABS: PARTIAL THROMBOPLASTIN TIME 22.4 SECONDS (25.4-37.6)
[2018-04-02] MEDS ORDERED: MS C15TA8 PO (20:13)
[2018-04-02] MEDS ORDERED: ATIV1TAB10 SL (20:13)
[2018-04-02] MEDS ORDERED: COLA100C5 PO ×2 (20:13)
[2018-04-02] MEDS ORDERED: OXYC1TAB23 PO (20:13)
[2018-04-02] MEDS ORDERED: NYST1POW9 TOP (20:13)
[2018-04-02] MEDS ORDERED: CVS8.6TA5 PO (20:13)
[2018-04-02] MEDS ORDERED: OMEP10CASR PO (20:13)
[2018-04-02] MEDS ORDERED: LOPR0.775 TOP (20:13)
[2018-04-02] MEDS ORDERED: MELA5TAB21 PO (20:14)
[2018-04-02] MEDS ORDERED: CHLO50TA PO (20:16)
[2018-04-02 20:52] LABS: ALBUMIN 2.9 GM/DL (3.2-5.2); ALT/SGPT 14 U/L (12-78); BILIRUBIN,DIRECT 0.2 MG/DL (0.0-0.2); BILIRUBIN,TOTAL 0.5 MG/DL (0.2-1.0); BLOOD UREA NITROGEN 57 MG/DL (7-18); CALCIUM LEVEL 8.5 MG/DL (8.8-10.2); CARBON DIOXIDE LEVEL 22 MEQ/L (21-32); CHLORIDE LEVEL 93 MEQ/L (98-107); CPK CREATINE PHOSPHOKINASE 257 U/L (39-308); CREATININE FOR GFR 1.53 MG/DL (0.70-1.30); GLUCOSE, FASTING 589 MG/DL (70-100); LIPASE 27 U/L (73-393); MB/CK RELATIVE INDEX 0.51 (< OR =4); SODIUM LEVEL 128 MEQ/L (136-145); TOTAL PROTEIN 5.6 GM/DL (6.4-8.2); TROPONIN I < 0.02 NG/ML (< 0.10)
[2018-04-02] MEDS ORDERED: NYSTATIN 100,000 UNITS/GM TOPICAL PWD 15 GM TOP PRN (22:15)
[2018-04-02] MEDS ORDERED: LORazepam 0.5 MG TAB SL PRN (22:15)
--- NOTE | 2018-04-02 23:19 | CR ---
DATE OF CONSULTATION: 04/02/2018 REASON FOR CONSULTATION: Rectal bleeding, probable prolapsing internal hemorrhoid. HISTORY OF PRESENT ILLNESS: The patient is an 87-year-old man who has metastatic prostate cancer and has for the last 4-6 months been on hospice care, having stopped any further treatment. He has a history, he reports, of prior hemorrhoidal disease with occasional bleeding. In the last day or two, he has noted protrusion with bowel activity of a large prolapsing hemorrhoid with significant bleeding. He has three family members with him, and they report that each time he has strained for a bowel movement or stood, the area protrudes with loss of perhaps a quarter cup of blood. The patient reportedly decided that he wished to have this problem treated, so he was brought to the emergency department. He had some laboratory studies obtained, and I was consulted to evaluate the patient. MEDICAL HISTORY: Medical history is significant for his metastatic prostate cancer, which had been unresponsive to treatment. He reportedly had widespread metastatic disease to the bones. He has a history of diabetes and hypertension. There is a history of cerebrovascular accident. SURGICAL HISTORY: A subtotal colectomy involving the right colon, transverse and proximal descending colon for polyps back in 2003. He has had multiple colonoscopies. He had developed a large ventral hernia and underwent a robotic-assisted laparoscopic incisional hernia repair with mesh in July of 2017. FAMILY HISTORY: Noncontributory. SOCIAL HISTORY: The patient has been for some years by his report. He denies any tobacco use or significant alcohol intake currently. REVIEW OF SYSTEMS: Shows no chest pain or palpitations. He has had no cough, wheezing or sputum production. He does report he has had some rectal bleeding previously but it was always minor and on the toilet tissue only in distinction from what this is. He apparently has been voiding acceptably. PHYSICAL EXAM: Reveals a very pale elderly man who appears quite frail lying on the hospital stretcher. He is responsive and alert. He sometimes has trouble with word finding but appears to understand the current situation. He expresses that he wants his hemorrhoids treated. Heart exam shows a regular rhythm in the 80s. The lungs show bilateral breath sounds. The abdomen is soft and without significant tenderness. Examination of the perineum shows the start of a small superficial necrotic eschar consistent with a small bedsore on the right side of the gluteal cleft. This is about 2 cm in maximum diameter and does not appear to have any underlying infection. Examination of the anal verge shows no evidence of thrombosed hemorrhoid or significant external hemorrhoid. Digital rectal examination shows no distinct mass. There is no gross blood identified. Laboratory studies show that the patient has a CBC showing a white count of 4, hemoglobin of 7, hematocrit of 21, and a platelet count of 68,000. His PT, INR and PTT are normal. Chemistries show sodium 128, potassium 5.0, chloride 93, CO2 of 22, BUN of 57, creatinine 1.5 and a glucose of 589. His total protein is 5.6 with an albumin of 2.9. Liver function tests are normal. A lipase was normal. X-rays: A chest x-ray was obtained, which showed what appeared to be a poor inspiratory effort. There are some changes noted in the bones, which are likely due to his metastatic disease. IMPRESSION: 1. Rectal bleeding with a history consistent with a prolapsing internal hemorrhoid bleeding. 2. Extensive metastatic prostate cancer. 3. Marked anemia. 4. Hyperglycemia. 5. Thrombocytopenia. RECOMMENDATIONS: At this point, the patient is requesting treatment for his bleeding hemorrhoids. He describes a large prolapsing hemorrhoid that prolapses intermittently with bowel movements and bleeds significant amounts. He is not having any bleeding currently with the hemorrhoid reduced. I questioned the patient about the desire to have these repaired in the face of his progressive metastatic disease, and he cannot explain this choice clearly to me. He has been on hospice and has apparently been doing fairly well, eating well and his daughters report that he has actually gained weight since going under hospice care. However, this bleeding has apparently led him to request treatment even to the point of withdrawing from the hospice plan. Certainly this is not an emergency surgery that is needed to address his bleeding as this is intermittent when the hemorrhoid protrudes. I advised him that if he wishes to have this treated, he would need to be prepared medically for the surgery, and this might take some time to accomplish this. His daughters are flummoxed over this change in his approach and reported that they can no longer care for him at home. I have recommended to Dr. Hutton, the emergency department physician, that he involve the hospitalist in management of this patient. If this patient were to undergo surgery, he would need to have his medical problems corrected to a point where he could tolerate anesthesia. I explained to the patient that this procedure would require anesthesia to accomplish any sort of hemorrhoidectomy and he was accepting of this. I did advise him that the surgery would not address all hemorrhoids, but would be directed toward what ever the source of his bleeding was and that this would not be a simple procedure and he is also accepting of this. I did advise the patient and his family that I will be going on vacation in 24 hours and once I have left, one of my partners will be assuming any surgical responsibilities for this patient. ANDREA
[2018-04-03 00:43] VITALS: BP 79/52
[2018-04-03] MEDS: PERCOCET 5MG/325MG TAB PO PRN ×4 (01:24→23:45)
--- NOTE | 2018-04-03 06:55 | HPE ---
DATE OF ADMISSION: 04/02/2018 CHIEF COMPLAINT: Rectal bleeding. HISTORY OF PRESENT ILLNESS: This is an 87-year-old male with a history of metastatic prostate cancer to the bone. He has been on Hospice for the last 4-6 months, having stopped any further treatments. He has been at home with his daughters taking care of him. In the last 1-2 days, he has begun having large amounts of rectal bleeding. He felt it was from hemorrhoids. Per the daughters, he has had it several times yesterday and several times today in large amounts. The patient felt that it was from hemorrhoids. He decided that he wanted to be brought to the emergency room for further treatment and investigation. He came to the emergency room. Per the daughter, he has slowly gotten weaker and they are unable to care for him at home and were going to pursue possibly hospice house until today when he decided he was going to the emergency room for treatment. On arrival, blood pressure was 123/67, pulse 97, temperature 97, oxygen saturation 96%. Electrocardiogram (EKG) was done and showed atrial fibrillation with a rate of 77. Upon arrival, labs were drawn. White count 4.5, hemoglobin 7.0, hematocrit 20.8, platelets 68. Sodium 128, potassium 5, chloride 93, BUN 57, creatinine 1.53, glucose 589, calcium 8.5, AST 45, ALT 14, lipase 27. A consult was obtained with Dr. Linares. The patient was requesting treatment for his hemorrhoids. Dr. Linares advised the patient that he would need to be prepared medically for the surgery before it could be done. Thus, the hospitalists were called to admit the patient for medical optimization to see if the patient could or would warrant a hemorrhoidectomy and if he would be able to tolerate anesthesia. Upon arrival, I spoke with the patient and the three daughters were in the room. The patient was advised that before any surgery could be proceeded to he would require blood transfusions. The daughters explained to him that yes he would. I advised him he would need transfusions. I discussed with him that even after the transfusion he may not be stabilized enough to undergo surgery and the daughters discussed with him it would not change anything with his prostate or bone metastasis. The patient decided that he would rather go back on hospice, he wanted to be with his . He wanted nature to take its course and he once again wanted to be a comfort measures only. Medical orders for life-sustaining treatment (MOLST) form was made out. The patient will be admitted as family does not feel that they can take care of him at home anymore. They requested hospice house and I have contacted the hospice nurse and will put in a consult for patient and family service. The patient will be admitted on comfort measures. The patient and the family wish for his pain medication. Will continue his pain medications, stool softener, lorazepam if needed. The patient and family wish no lab draws or further x-rays or treatments. No transfusions. Reviewed medications the patient was on with the family and they wish to continue also his eye drops and omeprazole for his stomach. He had been on chlorthalidone as needed for edema. He has none now and that will be held. He wishes no other treatment. 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 ALLERGIES: - PRAVASTATIN - SULFA SOCIAL HISTORY: . He does not drink alcohol. He does not smoke cigarettes. He does not use recreational drugs. PAST MEDICAL HISTORY: 1. Hypertension. 2. Prostate cancer with metastasis to the bone who stopped treatment 4-6 months ago. 3. May 2013 transient ischemic attack. 4. Multiple episodes of small bowel obstruction. 5. Non insulin diabetes type 2 for which he has not taken medications at home and has refused. 6. History of squamous cell skin cancer. PAST SURGICAL HISTORY: 1. Bilateral cataract removal. 2. Tympanostomy. 3. June 2009 appendectomy. 4. Right hemicolectomy. 5. January 2004 TURP. 6. 1958 cyst removal from scrotum. 7. Banded hemorrhoid 1995. HOME MEDICATIONS: - chlorthalidone 50 mg by mouth daily - Lumigan one drop OU at bedtime - Loprox 0.77 topical fungal cream as needed infection - melatonin 10 mg by mouth at bedtime - omeprazole 10 mg by mouth daily - timolol 0.5% one drop OU twice a day - dexamethasone 4 mg by mouth daily - Colace 100 mg by mouth daily and 200 mg by mouth at bedtime - Ativan 0.5 mg by mouth every 4 hours as needed for anxiety or agitation - morphine sulfate, MS Contin, 15 mg by mouth twice a day - Nystatin powder one application twice a day as needed to rash in the abdominal folds - oxycodone/acetaminophen 5/325 one by mouth every 6 hours as needed for pain - senna 8.6 mg one by mouth daily - hold if loose stool FAMILY HISTORY: Noncontributory. IMPRESSION AND PLAN: 1. Rectal bleeding and anemia. Patient wishes no further treatment or transfusion. 2. Prostate cancer with metastasis to the bone. Patient wishes to resume hospice. 3. 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 Has refused medications. Will just provide consistent carbohydrate diet. The patient will be admitted to observation status. Hospitalist, , will follow the patient. Patient and family services consult has been requested for hospice care. ANDREA
[2018-04-03] MEDS: DOCUSATE SODIUM 100 MG CAP PO SCH ×2 (07:43→20:00)
[2018-04-03] MEDS: SENNA 8.6 MG TAB (SENOKOT) PO SCH (07:43)
[2018-04-03] MEDS: OMEPRAZOLE 20 MG CAP PO SCH (07:44)
[2018-04-03] MEDS: TIMOLOL MALEATE 0.5% OPHTH SOLN 5 ML OU SCH ×2 (07:45→20:00)
[2018-04-03] MEDS: MORPHINE 15 MG SA TAB PO SCH ×2 (07:45→20:00)
--- NOTE | 2018-04-03 07:49 | REP ---
Portable chest x-ray: AP semi-erect view. History: Preop. Findings: EKG monitoring electrodes overlie the chest. Extensive multifocal skeletal sclerotic changes are noted consistent with widespread skeletal blastic metastatic disease as before. The aorta somewhat tortuous. No infiltrate is seen in the lung doran. Pleural angles are sharp. Heart is borderline in size. Impression: Widespread blastic skeletal metastatic disease again noted. Otherwise no acute abnormality. Electronically Signed by Michael Santos MD 04/03/2018 07:40 A
--- NOTE | 2018-04-03 09:17 | IPNPDOC ---
Subjective Date Seen The patient was seen on 04/03/18. Subjective Chief Complaint/HPI . General: Reports: Fatigue; Denies: Chills Constitutional: Reports: Weakness Cardiovascular: Denies: Chest Pain, Palpitations Gastrointestinal: Denies: Nausea, Vomiting, Abdominal Pain Neurological: Reports: Weakness Psych: Reports: Mood Normal Objective Physical Examination General Exam: Positive: Alert, Cooperative, No Acute Distress Chest Exam: Positive: Clear to auscultation; Negative: Rales, Wheezing, Diminished Heart Exam: Positive: Normal S1, Normal S2; Negative: Gallops, Murmurs, Rubs Abdomen Exam: Positive: Normal bowel sounds, Soft; Negative: Tenderness, Hepatospenomegaly Extremity Exam: Positive: Edema, Swelling (b/l trace pitting) Neuro Exam: Positive: Normal Speech Psych Exam: Positive: Mental status NL, Memory Intact Assessment /Plan Assessment 1. 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 Plan/VTE VTE Prophylaxis Ordered?: Yes VS, I&O, 24H, Fishbone Vital Signs/I&O Vital Signs Date Time Temp Pulse Resp B/P (MAP) Pulse Ox O2 Delivery O2 Flow Rate FiO2 04/03/18 08:15 18 04/03/18 00:43 98.2 77 79/52 (61) 97 Room Air I&O- Last 24 Hours up to 6 AM 04/03/18 06:00 Output Total 850 ml Balance -850 ml Laboratory Data 24H LABS Laboratory Tests 2 04/02/18 14:17: Nucleated Red Blood Cells % (auto) 5.6H, Immature Platelet Fraction 1.2 04/02/18 19:36: Prothrombin Time 13.4, Prothromb Time International Ratio 1.01, Activated Partial Thromboplast Time 22.4L, Anion Gap 13, Glomerular Filtration Rate 46.0, Calcium Level 8.5L, Aspartate Amino Transf (AST/SGOT) 45H, Alanine Aminotransferase (ALT/SGPT) 14, Alkaline Phosphatase 97, Total Bilirubin 0.5, Direct Bilirubin 0.2, Total Creatine Kinase 257, Creatine Kinase MB 1.0, Creatine Kinase MB Relative Index 0.51, Troponin I < 0.02, Total Protein 5.6L, Albumin 2.9L, Albumin/Globulin Ratio 1.07, Lipase 27L CBC/BMP Laboratory Tests 04/02/18 14:17 Red Blood Count 2.33 L, Mean Corpuscular Volume 89.3, Mean Corpuscular Hemoglobin 30.0, Mean Corpuscular Hemoglobin Concent 33.7, Red Cell Distribution Width 17.2 H 04/02/18 19:36 GME ATTESTATION GME ATTESTATION My faculty preceptor for this patient encounter was physically present during the encounter and was fully available. All aspects of the patient interview, examination, medical decision making process, and medical care plan development were reviewed and approved by the faculty preceptor. The faculty preceptor is aware and concurs with the plan as stated in the body of this note and will attest to such by his/her cosignature. TATY DECKER DO Apr 03, 2018 09:17
[2018-04-03] MEDS: LATANOPROST 0.005% OPHTH SOLN 2.5 ML OU SCH (20:00)
[2018-04-04] MEDS: PERCOCET 5MG/325MG TAB PO PRN ×2 (05:49→11:50)
--- NOTE | 2018-04-04 07:57 | ECGEPIP ---
Stationary ECG Study [facility] - ED Test Date: 2018-04-02 Pat Name: CHAVO TRAYLOR Department: Room: [place] [address] Gender: M Head Of Mobile: gt : 1930 Requested By: JAC Davis Order Number: [id number] Reading MD: Harish Huynh Measurements Intervals Taylor Rate: 77 P: GA: 0 QRS: -10 QRSD: 131 T: -23 QT: 369 QTc: 420 Interpretive Statements SINUS RHYTHM WITH FREQUENT ATRIAL PREMATURE COMPLEXES RIGHT BUNDLE BRANCH BLOCK, NEW COMPARED TO 07/21/17 Electronically Signed On 04-04-2018 7:57:04 EST by Harish Huynh
[2018-04-04] MEDS: MORPHINE 15 MG SA TAB PO SCH ×2 (09:18→20:33)
[2018-04-04] MEDS: OMEPRAZOLE 20 MG CAP PO SCH (09:18)
[2018-04-04] MEDS: SENNA 8.6 MG TAB (SENOKOT) PO SCH (09:19)
[2018-04-04] MEDS: TIMOLOL MALEATE 0.5% OPHTH SOLN 5 ML OU SCH ×2 (09:19→20:34)
[2018-04-04] MEDS: DOCUSATE SODIUM 100 MG CAP PO SCH ×2 (09:19→20:33)
[2018-04-04] MEDS ORDERED: PERCOCET 5MG/325MG TAB PO PRN (16:45)
[2018-04-04] MEDS ORDERED: PERCOCET 5MG/325MG TAB PO SCH (17:00)
--- NOTE | 2018-04-04 17:17 | IPN ---
DATE: 04/04/2018 The patient is [facility] today [facility]. He was admitted with rectal bleeding. In order to be admitted to the hospital he had to rescind his contract with hospice. After he came into the hospital, his bleeding stopped. He was seen by the surgeon and advised not to consider any surgeries. No longer having any rectal bleeding. Decided yesterday to do comfort measures again. The family tells me today that hospice has reassessed him. He has been seen by the hospice medical biller/coder, who indeed will be accepting him back on the service, and the plan is for him to go to the hospice facility; however, there are no beds there at this time, and there is a least one patient ahead of him in the hospital. On examination, he looks older and more frail than when I saw him his last 5 or more years ago. He is [id number]. He has hearing aids. His lungs sound clear. His heart has a regular rhythm without any murmur, click, or gallop. Abdomen is soft and nontender. Not having any edema issues. He denies being in any pain at this time. ASSESSMENT: 1. Metastatic prostate cancer 2. Rectal bleeding, resolved 3. Anemia due to GI blood loss PLAN: The only request that the patient and family had today was to have his pain medicine scheduled as it was at home, as was done. Hopefully he will be able to go to the hospice facility in the next day or two, but, again, this depends upon availability of a bed. Due to the resident's relative size and relative immobility, family members are not able to manage him in the home. ANDREA
[2018-04-04] MEDS: PERCOCET 5MG/325MG TAB PO SCH (19:03)
[2018-04-04] MEDS: LATANOPROST 0.005% OPHTH SOLN 2.5 ML OU SCH (20:34)
[2018-04-05] MEDS: PERCOCET 5MG/325MG TAB PO SCH ×4 (01:05→18:05)
[2018-04-05] MEDS: OMEPRAZOLE 20 MG CAP PO SCH (09:14)
[2018-04-05] MEDS: SENNA 8.6 MG TAB (SENOKOT) PO SCH (09:15)
[2018-04-05] MEDS: DOCUSATE SODIUM 100 MG CAP PO SCH ×2 (09:15→20:35)
[2018-04-05] MEDS: MORPHINE 15 MG SA TAB PO SCH ×2 (09:15→20:36)
[2018-04-05] MEDS: TIMOLOL MALEATE 0.5% OPHTH SOLN 5 ML OU SCH ×2 (09:18→20:36)
[2018-04-05] MEDS ORDERED: PILL CRUSHER/CUTTER 1 EACH XX PRN (18:15)
[2018-04-05] MEDS: LATANOPROST 0.005% OPHTH SOLN 2.5 ML OU SCH (20:36)
[2018-04-06] MEDS: PERCOCET 5MG/325MG TAB PO SCH ×3 (00:09→11:34)
--- NOTE | 2018-04-06 07:32 | IPN ---
DATE OF SERVICE: 04/05/2018 The patient is seen today on [facility]. He seems to have had a comfortable evening. He is now on [id number] Percocet. He says he has minimal if any pain. Today he is not having any shortness of breath. He does have one sore area near his rectum which the staff is monitoring. They are encouraging to stay off of his backside but he is not always cooperative with this. On examination, his lungs are clear. Heart has regular rhythm without any murmur, click or gallop. Abdomen is soft, protuberant, nontender without any masses or organomegaly. Bowel sounds are active. There is really no edema. ASSESSMENT: Resolved rectal bleeding. Anemia secondary to rectal bleeding. Prostate cancer with diffuse skeletal metastases. PLAN: Resident is waiting placement at the Hospice facility. He and his family are anxious for his transfer there. Continue his current medication regimen which includes the scheduled and as needed oxycodone, dexamethasone, meds for bowel care. He is also getting MS Contin twice a day and has lorazepam available and omeprazole. Also bowel care meds. As indicated in prior notes, he has been a Hospice patient for the last 6 months and even though he has a life limiting disease, I cannot say truly that he is dying at this time. Granted he has a large tumor burden and now he is anemic. I do not think that his recent GI bleeding was a function of his malignancy, more a function of bleeding hemorrhoids. ANDREA
--- NOTE | 2018-04-06 08:21 | IPNPDOC ---
Subjective Date Seen The patient was seen on 04/06/18. Subjective Chief Complaint/HPI GI bleed Events since last encounter having trouble swallowing Percocet for pain. Tolerates the pill broken in half. otherwise denies c/o. planned meeting with hospice today. 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 planned DC to hospice pending meeting. (2) Anemia Status: Acute Plan/VTE VTE Prophylaxis Ordered?: No VTE Exclusion Pharmacological: Active Bleeding VS, I&O, 24H, Fishbone Vital Signs/I&O Vital Signs Date Time Temp Pulse Resp B/P (MAP) Pulse Ox O2 Delivery O2 Flow Rate FiO2 04/05/18 18:05 18 Room Air 04/05/18 06:36 92 04/03/18 00:43 98.2 77 79/52 (61) I&O- Last 24 Hours up to 6 AM 04/06/18 05:59 Intake Total 1380 ml Output Total 1550 ml Balance -170 ml Cecilia Ramirez ASSOCIATE RELATIONS SPECIALIST Apr 06, 2018 08:21
[2018-04-06] MEDS: OMEPRAZOLE 20 MG CAP PO SCH (08:50)
[2018-04-06] MEDS: MORPHINE 15 MG SA TAB PO SCH (08:50)
[2018-04-06] MEDS: TIMOLOL MALEATE 0.5% OPHTH SOLN 5 ML OU SCH (08:54)
[2018-04-06] MEDS: SENNA 8.6 MG TAB (SENOKOT) PO SCH (08:54)
[2018-04-06] MEDS: DOCUSATE SODIUM 100 MG CAP PO SCH (08:54)
[2018-04-06] MEDS ORDERED: HYOS125TA PO (09:51)
[2018-04-06] MEDS ORDERED: MORP20SO3 PO (09:51)
[2018-04-06] MEDS ORDERED: LORA0.5T11 PO (09:51)
--- NOTE | 2018-04-06 09:59 | DS.PDOC ---
Discharge Summary General Date of Admission Apr 03, 2018 at 14:50 Date of Discharge 04/06/18 Primary Care Physician: Melecio Saleh MD Attending Physician: Js Glez M.D. Discharge Summary PROCEDURES PERFORMED DURING STAY: None ADMITTING DIAGNOSES: 1. Rectal bleeding and anemia. 2. Prostate cancer with metastasis to the bone. 3. 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 DISCHARGE DIAGNOSES: 1. Rectal bleeding and anemia. 2. Prostate cancer with metastasis to the bone. 3. 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 COMPLICATIONS/CHIEF COMPLAINT: Prostate Cancer Metastatic To Bone. HISTORY OF PRESENT ILLNESS: 87 yo male presented to ED for rectal bleeding presumed from Hemorrhoids. patient rescinded his Hospice due to requestign treatment for his bleeding and weakness. Daughter expressed concerns about caring for him at home any longer. HOSPITAL COURSE: s/p consultation with surgery, Dr. Lofton. no surgical in dication for treatment of bleeding as it subsided with reduction on hemorrhoid. has had no further bleeding. tolerating po well. Repeat Hospice consult, obtained, patient and family met with director and decided to resume hospice care and transition to the Hospice House. DISCHARGE MEDICATIONS: Please see below. ALLERGIES: Please see below. PHYSICAL EXAMINATION ON DISCHARGE: VITAL SIGNS: Please see below. GENERAL: NAD NECK: no JVD CARDIOVASCULAR EXAMINATION: RRR S1, S2 RESPIRATORY EXAMINATION: CTA B ABDOMINAL EXAMINATION: soft, NT EXTREMITIES: no edema SKIN: intact NEUROLOGICAL EXAMINATION: alert PSYCHIATRIC EXAMINATION: flat affect LABORATORY DATA: Please see below. IMAGING: CXR: Impression: Widespread blastic skeletal metastatic disease again noted. Otherwise no acute abnormality. Electronically Signed by Michael Santos MD 04/03/2018 07:40 A PROGNOSIS:poor ACTIVITY: As tolerated DIET: as luis DISCHARGE PLAN: DISPOSITION: Hospice Home DISCHARGE INSTRUCTIONS: recommendations per hospice. DISCHARGE CONDITION: Stable TIME SPENT ON DISCHARGE: Greater than 30 minutes. Vital Signs/I&Os Vital Signs Date Time Temp Pulse Resp B/P (MAP) Pulse Ox O2 Delivery O2 Flow Rate FiO2 04/06/18 08:50 20 Room Air 04/05/18 06:36 92 04/03/18 00:43 98.2 77 79/52 (61) I&O- Last 24 Hours up to 6 AM 04/06/18 05:59 Intake Total 1380 ml Output Total 1550 ml Balance -170 ml Discharge Medications Scheduled (Timolol Maleate) 0.5 % Kayy, 1 DROP OU BID, (Reported) Bimatoprost (Lumigan) 50 Drop/2.5 Ml Kayy, 1 DROP OU QHS, (Reported) Chlorthalidone (Chlorthalidone) 50 Mg Tab, 50 MG PO DAILY, (Reported) Dexamethasone (Decadron) 4 Mg Tab, 4 MG PO DAILY, (Reported) Docusate Sodium (Colace) 100 Mg Cap, 100 MG PO DAILY, (Reported) Docusate Sodium (Colace) 100 Mg Cap, 200 MG PO QHS, (Reported) Melatonin (Melatonin) 5 Mg Tab, 10 MG PO QHS, (Reported) Morphine Sulfate (Ms Contin) 15 Mg Tab, 15 MG PO BID, (Reported) Omeprazole (PriLOSEC) 10 Mg Capcr, 10 MG PO DAILY, (Reported) Senna (Cvs Senna) 8.6 Mg Tab, 8.6 MG PO DAILY, (Reported) Scheduled PRN (Loprox) 0.77 % Cre, 1 APLCT TOP DAILY PRN for FUNGAL INFECTION, (Reported) APPLIES TO GROIN AREA. Lorazepam (Ativan) 0.5 Mg Tab, 0.5 MG SL Q4H PRN for ANXIETY/AGITATION, (Reported) Nystatin (Nystatin Powder) 100,000 Unit/Gm Pow, 1 APLCT TOP BID PRN for RASH, (Reported) APPLY TO ABDOMINAL FOLDS. Oxycodone/Acetaminophen (Oxycodone/Acetaminophen 5-325 mg) 1 Tab Tab, 1 TAB PO Q6H PRN for PAIN, (Reported) TAKES AT 0630, 1230, 1830, AND 0030. Allergies Coded Allergies: Sulfa Drugs (Verified Allergy, Unknown, CHILDHOOD REACTION, 06/28/17) Sulfa Drugs Cross Reactors (Verified Allergy, Unknown, CHILDHOOD REACTION, 06/28/17) Pravastatin (Verified Adverse Reaction, Intermediate, rhabdomyolysis, 06/28/17) Cecilia Ramirez [facility] Apr 06, 2018 09:59
== END 2018-04-06 12:07 | disposition hospice, inpatient (51) | DRG 394 ==
LOC: EDBD 13:39 → M ED 13:39 → M ED INP 22:32 → M MSPAV 04-03 01:01 → OBSVTOIN 04-03 14:50
PROVIDERS: ADMIT Internal Medicine Nephrology; ATTEND Family Medicine
DX: K64.8 Other hemorrhoids (principal); C79.51 Secondary malignant neoplasm of bone; K62.5 Hemorrhage of anus and rectum; D62 Acute posthemorrhagic anemia; E11.65 Type 2 diabetes mellitus with hyperglycemia; C61 Malignant neoplasm of prostate; Z51.5 Encounter for palliative care; Z66 Do not resuscitate; Z85.828 Personal history of other malignant neoplasm of skin; Z98.41 Cataract extraction status, right eye; Z98.42 Cataract extraction status, left eye; Z90.49 Acquired absence of other specified parts of digestive tract; Z79.891 Long term (current) use of opiate analgesic; Z79.899 Other long term (current) drug therapy